=== PATIENT | male | born 1955 | race Two or more races ===

== ENCOUNTER → 2018-09-28 | Outpatient (CLI) | payer MEDICARE ==
[2018-09-28 10:15] LABS: ABSOLUTE EOSINOPHILS # (AUTO) 0.2 10^3/uL (0.0-0.6); ABSOLUTE LYMPHOCYTES (AUTO) 1.6 10^3/uL (0.5-4.7); ABSOLUTE MONOCYTES (AUTO) 0.6 10^3/uL (0.1-1.4); ABSOLUTE NEUT (AUTO) 4.2 10^3/uL (1.7-8.2); BASOPHILS % (AUTO) 0.5 % (0-2); EOSINOPHILS % (AUTO) 3.2 % (0-6); HEMATOCRIT 42.5 % (37.9-51.0); HEMOGLOBIN 14.5 g/dL (13.5-17.0); LYMPHOCYTES % (AUTO) 24.4 % (13-45); MEAN CORPUSCULAR HEMOGLOBIN 31.7 pg (27.0-33.4); MEAN CORPUSCULAR VOLUME 93 fl (80-97); MONOCYTES % (AUTO) 8.5 % (3-13); PLATELET COUNT 338 10^3/uL (150-450); RED BLOOD COUNT 4.56 10^6/uL (4.35-5.55); RED CELL DISTRIBUTION WIDTH 14.8 % (11.5-14.0); SEGMENTED NEUTROPHILS % (AUTO) 63.4 % (42-78); TOTAL CELLS COUNTED % (AUTO) 100 %; WHITE BLOOD COUNT 6.6 10^3/uL (4.0-10.5)
[2018-09-28 10:41] LABS: ALANINE AMINOTRANSFERASE 14 U/L (21-72); ALBUMIN 3.9 g/dL (3.5-5.0); ALKALINE PHOSPHATASE 104 U/L (38-126); ANION GAP 7 (5-19); ASPARTATE AMINO TRANSFERASE 29 U/L (17-59); BILIRUBIN,DIRECT 0.3 mg/dL (0.0-0.4); BILIRUBIN,TOTAL 0.8 mg/dL (0.2-1.3); BLOOD UREA NITROGEN 10 mg/dL (7-20); CALCIUM 9.5 mg/dL (8.4-10.2); CARBON DIOXIDE 31 mmol/L (22-30); CHLORIDE 102 mmol/L (98-107); CHOLESTEROL 215.21 mg/dL (0-200); GLUCOSE 103 mg/dL (75-110); POTASSIUM 4.4 mmol/L (3.6-5.0); SODIUM 140.4 mmol/L (137-145); TOTAL PROTEIN 6.8 g/dL (6.3-8.2); TRIGLYCERIDES 125 mg/dL (<150)
[2018-09-28 10:53] LABS: DIRECT LDL 157 mg/dL (<100)
== END ==
LOC: OD 09:04
PROVIDERS: ATTEND Internal Medicine
DX: R10.9 Unspecified abdominal pain (principal); E03.9 Hypothyroidism, unspecified; E78.5 Hyperlipidemia, unspecified; D64.9 Anemia, unspecified
CPT/HCPCS: 36415; 80053; 80061; 84443; 85025

== ENCOUNTER → 2018-10-08 | Outpatient (CLI) | payer MEDICARE ==
--- NOTE | 2018-10-09 19:18 | XCELERA REPORT ---
[address] [address] Transthoracic Echocardiogram Report Name: BOBBY HAYES Age: 62 yrs Gender: Male : 1955 Patient Status: Outpatient Patient Location: [facility] Study Date: 10/08/2018 09:52 AM Procedure: A complete two-dimensional transthoracic echocardiogram was performed (2D, M-mode, spectral and color flow Doppler). The study was technically difficult with many images being suboptimal in quality. Reason For Study: A FIB Ordering Physician: HELEN BLOOM Performed By: Maryuri Howe Interpretation Summary Left ventricular systolic function is borderline reduced. There is normal left ventricular wall thickness. The left ventricle is grossly normal size. Regional wall motion abnormalities cannot be excluded due to limited visualization. The right ventricle is not well visualized secondary to technical limitations Right ventricular function cannot be assessed due to poor image quality. The left atrium is moderately dilated. The right atrium is mildly dilated. There is a trace amount of mitral regurgitation There is no mitral valve stenosis. No aortic regurgitation is present. There is no aortic valve stenosis There is a trace or physiologic amount of tricuspid regurgitation Tricuspid regurgitation jet envelope not well defined to measure RV systolic pressure accurately. The aortic root is not well visualized. The inferior vena cava appeared normal and decreased > 50% with respiration (RAP 5-10 mmHg) There is no pericardial effusion. MMode/2D Measurements & Calculations RVDd: 2.6 cm LVIDd: 5.4 cm FS: 29.1 % Ao root diam: 3.5 cm IVSd: 0.70 cm LVIDs: 3.8 cm EDV(Teich): 143.1 ml Ao root area: 9.6 cm2 LVPWd: 1.1 cm ESV(Teich): 63.9 ml EF(Teich): 55.3 % Doppler Measurements & Calculations MV E max barbara: MV dec slope: Ao V2 max: LV V1 max P.1 cm/sec 85.1 cm/sec 1.6 mmHg MV A max barbara: 665.5 cm/sec2 Ao max PG: LV V1 max: 53.8 cm/sec MV dec time: 0.12 sec 2.9 mmHg 63.3 cm/sec MV E/A: 1.5 PA V2 max: TR max barbara: 73.1 cm/sec 222.7 cm/sec PA max P.1 mmHg TR max P.8 mmHg Left Ventricle The left ventricle is grossly normal size. There is normal left ventricular wall thickness. Left ventricular systolic function is borderline reduced. LV diastolic function could not be adequately assessed due to atrial fibrilation. Regional wall motion abnormalities cannot be excluded due to limited visualization. Right Ventricle The right ventricle is not well visualized secondary to technical limitations. Right ventricular function cannot be assessed due to poor image quality. Atria The right atrium is mildly dilated. The left atrium is moderately dilated. Interarterial septum not well visualized and not well dopplered. Cannot comment on ASD/PFO presence. Mitral Valve The mitral valve leaflets are sclerotic, but show no functional abnormalities. There is no mitral valve stenosis. There is a trace amount of mitral regurgitation. Aortic Valve The aortic valve is grossly normal. There is no aortic valve stenosis. No aortic regurgitation is present. Tricuspid Valve The tricuspid valve is not well visualized secondary to technical limitations. There is no tricuspid stenosis. There is a trace or physiologic amount of tricuspid regurgitation. Tricuspid regurgitation jet envelope not well defined to measure RV systolic pressure accurately. Pulmonic Valve The pulmonic valve is not well visualized. Great Vessels The aortic root is not well visualized. The inferior vena cava appeared normal and decreased > 50% with respiration (RAP 5-10 mmHg). Effusions There is no pericardial effusion. : HELEN BLOOM > Ishmael Talbot
== END ==
LOC: SP 08:38
PROVIDERS: ATTEND Internal Medicine
DX: I48.1 Persistent atrial fibrillation (principal)
CPT/HCPCS: 93306

== ENCOUNTER → 2018-11-07 | Outpatient (CLI) | payer MEDICARE ==
[2018-11-07 11:08] LABS: CHOLESTEROL 210.03 mg/dL (0-200); TRIGLYCERIDES 123 mg/dL (<150)
[2018-11-07 11:20] LABS: DIRECT LDL 157 mg/dL (<100)
== END ==
LOC: OD 09:58
PROVIDERS: ATTEND Internal Medicine
DX: I10 Essential (primary) hypertension (principal)
CPT/HCPCS: 36415; 80061

== ENCOUNTER 2018-11-18 16:40 | Emergency (ER) | payer MEDICARE ==
[2018-11-18 16:46] VITALS: BP 122/86
[2018-11-18] MEDS ORDERED: MORPHINE SULFATE 10 MG/ML INJ IV ONE (17:40)
[2018-11-18] MEDS ORDERED: ONDANSETRON HCL INJ/PF 4 MG/2 ML SDV IV ONE (17:40)
[2018-11-18] MEDS ORDERED: KETOROLAC TROMETHAMINE INJ/PF 30 MG/1 ML SDV IV ONE (17:40)
--- NOTE | 2018-11-18 17:40 | ER Document Report ---
ED General - General Chief Complaint: Knee Pain Stated Complaint: KNEE PAIN Time Seen by Provider: 11/18/18 17:24 Primary Care Provider: HELEN BLOOM MD [Primary Care Provider] - Follow up as needed Notes: Patient is a 63-year-old male with history of chronic low back pain that presents to the emergency department for chief complaint of bilateral knee pain and back pain. Patient has a history of chronic low back pain, which she is been treated for for almost 30 years, he states that his pain seemed to flareup today, he is out of his medications, he recently moved to the area, and just ran out of his methadone and oxycodone, he has been getting established with a new primary care, and has some prescriptions from them, but has not been set up with his pain management yet. He states that his pain has gotten out of control and his significant rebound. He denies having any new numbness, weakness or tingling in any of his extremities. He describes his pain as a constant aching and throbbing sensation, he feels it across both of his kneecaps, as well as in his lower back. Denies any bowel or bladder incontinence, denies saddle anesthesias or paresthesias. Denies any new injuries or falls. Past Medical History: Chronic back pain, anxiety, atrial fibrillation Past Surgical History: Back surgery, knee surgery Social History: Admits to smoking cigarettes daily, denies alcohol or drug use. Family History: Reviewed and noncontributory for presenting illness Allergies: Reviewed, see documented allergy list. REVIEW OF SYSTEMS: Other than noted above, the 12 point review of systems was reviewed with the patient and were negative, all pertinent findings are included in the HPI. PHYSICAL EXAMINATION: Vital signs reviewed, nursing noted reviewed. GENERAL: Elderly male, appears to be in pain HEAD: Atraumatic, normocephalic. EYES: Eyes appear normal, sclera anicteric, conjunctiva are normal. ENT: Moist mucous membranes. NECK: Normal range of motion, supple without lymphadenopathy LUNGS: Breath sounds clear to auscultation bilaterally and equal. No wheezes rales or rhonchi. HEART: Regular rate and rhythm without murmurs Back: There is some paraspinal tenderness bilaterally in the lower lumbar spine, no thoracic tenderness. EXTREMITIES: Painless range of motion of the bilateral knees, no appreciable knee effusion, patient is neurovascular intact distally in all extremities. NEUROLOGICAL: No focal neurological deficits. Moves all extremities spontaneously Motor and sensory grossly intact on exam. PSYCH: Patient is anxious, but does appear to be in pain as well, but does answer questions appropriately. SKIN: Warm, Dry, normal turgor, no rashes or lesions noted on exposed skin TRAVEL OUTSIDE OF THE [place] IN LAST 30 DAYS: No - Related Data Allergies/Adverse Reactions: No Known Allergies Allergy (Verified 11/18/18 17:28) Past Medical History - Social History Smoking Status: Current Every Day Smoker Chew tobacco use (# tins/day): No Frequency of alcohol use: None Drug Abuse: None Family History: Reviewed & Not Pertinent Patient has suicidal ideation: No Patient has homicidal ideation: No - Past Medical History Cardiac Medical History: Reports: Hx Atrial Fibrillation Renal/ Medical History: Denies: Hx Peritoneal Dialysis Past Surgical History: Reports: Hx Orthopedic Surgery - back, Hx Tonsillectomy Physical Exam - Vital signs Vitals: Temp Pulse Resp BP Pulse Ox 98.6 F 89 18 122/86 H 96 11/18/18 16:44 11/18/18 16:44 11/18/18 16:44 11/18/18 16:44 11/18/18 16:44 Course - Re-evaluation Re-evalutation: Patient seen and examined, vital signs reviewed, patient did seem to be in legitimate pain, he does have a history of chronic pain, he did bring his empty bottles of his pain medications, is currently taking oxycodone 30 mg every 4 hours as needed for pain, prescribed by his physician in [place], the bottle wa s empty, and was filled at the end of August 2018, seems to be appropriate for the prescribed number of pills and the frequency of dosing, patient was also prescribed methadone, 10 mg, which I discussed with the patient, that I do not prescribe methadone, as I am not certified to do so, that he needs to see a ceramic painter to have this continued. Patient understood this. To help with the patient's acute breakthrough of his pain, he was given a one-time dose of IV morphine, as he had an IV from EMS, he was also given a dose of Zofran associated with this and IV Toradol. He was advised that he needs to follow-up with his primary care physician, and at the ER is on an appropriate place to be treated for his acute on chronic pain patient was agreeable, and was discharged home. I did provide him with number 15 tablets of the previously prescribed 30 mg oxycodone, so that the patient could maintain his pain control at home and not go through severe opiate withdrawal. - Vital Signs Vital signs: Temp Pulse Resp BP Pulse Ox 98.6 F 89 18 122/86 H 96 11/18/18 16:44 11/18/18 16:44 11/18/18 16:44 11/18/18 16:44 11/18/18 16:44 Discharge - Discharge Clinical Impression: Chronic pain Qualifiers: Chronic pain type: other chronic pain Qualified Code(s): G89.29 - Other chronic pain Condition: Stable Disposition: HOME, SELF-CARE Additional Instructions: Please take medications as directed, and you must follow-up with your primary care physician, to have continued pain medications as previously prescribed. The emergency department, is not the place for prescriptions for chronic pain. Prescriptions: RX: Oxycodone HCl 30 mg PO Q8H PRN #15 tablet PRN Reason: back and leg pain Referrals: HELEN BLOOM MD [Primary Care Provider] - Follow up as needed
== END 2018-11-18 18:11 | disposition home or self-care (01) ==
LOC: ER 16:40
DX: G89.29 Other chronic pain (principal); M54.5 Low back pain; T40.3X6A Underdosing of methadone, initial encounter; Z91.128 Patient's intentional underdosing of medication regimen for other reason; Z91.14 Patient's other noncompliance with medication regimen; M25.561 Pain in right knee; M25.562 Pain in left knee; F17.210 Nicotine dependence, cigarettes, uncomplicated; Z79.891 Long term (current) use of opiate analgesic
CPT/HCPCS: 99283; 96374; 96375; J1885; J2270; J2405

== ENCOUNTER 2018-11-22 15:03 | Emergency (ER) | payer MEDICARE ==
[2018-11-22 15:12] VITALS: BP 112/76
[2018-11-22] MEDS ORDERED: FENTANYL CITRATE INJ/PF 100 MCG/2 ML AMPUL IM ONE (16:05)
[2018-11-22] MEDS ORDERED: KETOROLAC TROMETHAMINE 60 MG/2 ML SDV IM ONE (16:05)
--- NOTE | 2018-11-22 16:11 | ER Document Report ---
HPI - HPI Time Seen by Provider: 11/22/18 15:43 Pain Level: 3 Notes: Patient is a 63-year-old male with a history of chronic back pain and chronic knee pain who presents the emergency department for pain management. Patient states that he continues to be in a lot of pain and needs something for his pain right now. Patient states that he does not want any prescriptions to go home with. He has an appointment on Monday with pain management. Denies drug allergies. No other concerns or complaints. Pain has been unchanged for a long time. He is eating and drinking without difficulty. He is urinating normally and having normal bowel movements. Denies any headache, fever, neck pain, URI, sore throat, chest pain, palpitations, syncope, cough, shortness of breath, wheeze, dyspnea, abdominal pain, nausea/vomiting/diarrhea, urinary retention, dysuria, hematuria, loss of control of bowel or bladder, numbness/tingling, saddle anesthesia, muscle paralysis, or rash. - ROS Systems Reviewed and Negative: Yes All other systems reviewed and negative - CONSTITUTIONAL Constitutional: DENIES: Fever, Chills Past Medical History - Social History Smoking Status: Current Every Day Smoker Drug Abuse: None Family History: Reviewed & Not Pertinent Patient has suicidal ideation: No Patient has homicidal ideation: No - Past Medical History Cardiac Medical History: Reports: Hx Atrial Fibrillation Renal/ Medical History: Denies: Hx Peritoneal Dialysis Past Surgical History: Reports: Hx Orthopedic Surgery - back, Hx Tonsillectomy Vertical Provider Document - CONSTITUTIONAL Agree With Documented VS: Yes Notes: PHYSICAL EXAMINATION: GENERAL: Well-appearing, well-nourished and in no acute distress. Pt was snoring upon my entry to the room. HEAD: Atraumatic, normocephalic. EYES: Pupils equal round and reactive to light, extraocular movements intact, sclera anicteric, conjunctiva are normal. NECK: Normal range of motion, supple without lymphadenopathy LUNGS: Breath sounds clear to auscultation bilaterally and equal. No wheezes r ales or rhonchi. HEART: Regular rate and rhythm without murmurs, rubs, gallops. ABDOMEN: Soft, nontender, nondistended abdomen. No guarding, no rebound. No masses appreciated. Normal bowel sounds present. No CVA tenderness bilaterally. Musculoskeletal: FROM to passive/active. Strength 5+/5. Back: FROM to passive/active. Strength 5+/5. No vertebral point tenderness, stepoffs, or deformities. No other bony tenderness, erythema, swelling, or ecchymosis. SLR negative b/l. + mild tenderness to the L-paraspinal mm b/l. Mild spasming. No SI jt tenderness. No foot drop Extremities: No cyanosis, clubbing, or edema b/l. Peripheral pulses 2+. Capillary refill less than 3 seconds. NEUROLOGICAL: Cranial nerves grossly intact. Normal speech, normal gait. PSYCH: Normal mood, normal affect. SKIN: Warm, Dry, normal turgor, no rashes or lesions noted. - INFECTION CONTROL TRAVEL OUTSIDE OF THE [place] IN LAST 30 DAYS: No Course - Re-evaluation Re-evalutation: 11/22/18 16:08 Patient is an afebrile, well-hydrated, 63-year-old male who presents to the ED with chronic low back pain. Vitals are acceptable. PE is otherwise unremarkable for any focal neurological deficits. He has no significant tachycardia, tachypnea, or hypoxia. He is nontoxic-appearing and is tolerating p.o. without difficulties. There are no signs of infection. No other red flag symptoms noted. No other labs or imaging warranted at this time based on H&P. Low suspicion for any meningitis, fracture, expanding/ruptured AAA, cauda equina syndrome, epidural mass lesion/abscess, herniated disc causing severe spinal stenosis, or other systemic infection at this time. Patient is aware that his condition can change from initial presentation and that he needs monitor symptoms closely for any acute changes. Thoroughly reviewed with patient that the emergency department is not a place her chronic pain management. I did offer him a variety of medicines including gabapentin which she has declined. Patient has agreed that he will not be getting any refills for home of his chronic medicine as he has an appointment on Monday with pain management. I did review with patient that we will give him this one-time injection, but he needs to have follow-up as scheduled with pain management. Patient has agreed to an injection of fentanyl at 50 mcg and Toradol. 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 No evidence of withdrawal. Conservative measures otherwise for symptoms. Recheck with your PCM in 3-5 days. Consider consult with orthopedic/physical therapy. Return to the ED with any worsening/concerning symptoms otherwise as reviewed discharge. Patient is in agreement. - Vital Signs Vital signs: Temp Pulse Resp BP Pulse Ox 98.3 F 56 L 16 112/76 96 11/22/18 15:11 11/22/18 15:11 11/22/18 15:11 11/22/18 15:11 11/22/18 15:11 Discharge - Discharge Clinical Impression: Chronic pain Qualifiers: Chronic pain type: other chronic pain Qualified Code(s): G89.29 - Other chronic pain Condition: Stable Disposition: HOME, SELF-CARE Instructions: Chronic Pain Control ([facility]) Additional Instructions: Rest, Ice Tylenol/ibuprofen as needed Light stretches daily Strength exercises as able Moist heat and massage may help F/u with your PCP in 3-5 days for a recheck Keep appointment with pain management on Monday Return to the ED with any worsening symptoms and/or development of fever, headache, chest pain, palpitations, syncope, shortness of breath, trouble breathing, abdominal pain, n/v/d, blood in stool/urine, loss of control of bowel/bladder, urinary retention, muscle weakness/paralysis, saddle anesthesia, numbness/tingling, or other worsening symptoms that are concerning to you. Referrals: HELEN BLOOM MD [Primary Care Provider] - Follow up as needed [facility] [Provider Group] - Follow up as needed
== END 2018-11-22 16:32 | disposition home or self-care (01) ==
LOC: ER 15:03
DX: G89.29 Other chronic pain (principal); M54.5 Low back pain; M25.569 Pain in unspecified knee; I48.91 Unspecified atrial fibrillation
CPT/HCPCS: 99283; 96372; J1885; J3010

== ENCOUNTER 2018-11-23 12:06 | Emergency (ER) | payer MEDICARE ==
--- NOTE | 2018-11-23 12:44 | ER Document Report ---
ED Medical Screen (RME) - General Chief Complaint: Knee Pain Stated Complaint: KNEE PAIN Time Seen by Provider: 11/23/18 12:35 Primary Care Provider: HLEEN BLOOM MD [Primary Care Provider] - Follow up as needed Notes: Patient is complaining of chronic pain in his left knee since 1998. 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 He is never had surgery on the left knee. Patient has been here for 2 prior times in the past 5 days, most recently just last night. Says he was given a couple of shots of medication and sent home. Patient is from [place] and says he does not have a pain medication prescriber here locally. He is supposed to be taking methadone and oxycodone. I told the patient this is not the sort of problems we take care of in the emergency department. TRAVEL OUTSIDE OF THE [place] IN LAST 30 DAYS: No - Related Data Allergies/Adverse Reactions: No Known Allergies Allergy (Verified 11/22/18 15:06) Past Medical History - Past Medical History Cardiac Medical History: Reports: Hx Atrial Fibrillation Renal/ Medical History: Denies: Hx Peritoneal Dialysis Past Surgical History: Reports: Hx Orthopedic Surgery - back, Hx Tonsillectomy Physical Exam - Vital signs Vitals: Temp Pulse Resp BP Pulse Ox 98.3 F 79 16 140/97 H 99 11/23/18 12:23 11/23/18 12:23 11/23/18 12:23 11/23/18 12:23 11/23/18 12:23 Course - Vital Signs Vital signs: Temp Pulse Resp BP Pulse Ox 98.3 F 79 16 140/97 H 99 11/23/18 12:23 11/23/18 12:23 11/23/18 12:23 11/23/18 12:23 11/23/18 12:23 Doctor's Discharge - Discharge Referrals: HELEN BLOOM MD [Primary Care Provider] - Follow up as needed
--- NOTE | 2018-11-23 13:34 | ER Document Report ---
ED Medical Screen (RME) - General Chief Complaint: Knee Pain Stated Complaint: KNEE PAIN Time Seen by Provider: 11/23/18 12:35 Primary Care Provider: HELEN BLOOM MD [Primary Care Provider] - Follow up as needed Notes: Patient is a 63-year-old male with complaints of left knee pain and low back pain. He has had a history of this since 1998. Past medical history of atrial fibrillation. See Dr. Araujo's note for details. TRAVEL OUTSIDE OF THE [place] IN LAST 30 DAYS: No - Related Data Allergies/Adverse Reactions: No Known Allergies Allergy (Verified 11/22/18 15:06) Past Medical History - Past Medical History Cardiac Medical History: Reports: Hx Atrial Fibrillation Renal/ Medical History: Denies: Hx Peritoneal Dialysis Past Surgical History: Reports: Hx Orthopedic Surgery - back, Hx Tonsillectomy Physical Exam - Vital signs Vitals: Temp Pulse Resp BP Pulse Ox 98.3 F 79 16 140/97 H 99 11/23/18 12:23 11/23/18 12:23 11/23/18 12:23 11/23/18 12:23 11/23/18 12:23 Course - Re-evaluation Re-evalutation: 11/23/18 13:32 I assessed the patient and he seems rather off, as if he may be on other drugs or intoxicated. I discussed this with Dr. Araujo and we agreed that he would not get any extra pain medicine here in the emergency department, but I would like to have him evaluated just in case he may be intoxicated. When I asked him to sit up he seemed like he was going to fall off the stretcher. He did not have very good eye contact. - Vital Signs Vital signs: Temp Pulse Resp BP Pulse Ox 98.3 F 79 16 140/97 H 99 11/23/18 12:23 11/23/18 12:23 11/23/18 12:23 11/23/18 12:23 11/23/18 12:23 Doctor's Discharge - Discharge Referrals: HELEN BLOOM MD [Primary Care Provider] - Follow up as needed
[2018-11-23] MEDS ORDERED: MORPHINE SULFATE 10 MG/ML INJ SUBCUT ONE (15:23)
--- NOTE | 2018-11-23 15:30 | ER Document Report ---
ED General - General Chief Complaint: Knee Pain Stated Complaint: KNEE PAIN Time Seen by Provider: 11/23/18 12:35 Primary Care Provider: HELEN BLOOM MD [Primary Care Provider] - Follow up as needed Mode of Arrival: Ambulatory Information source: Patient TRAVEL OUTSIDE OF THE U.S. IN LAST 30 DAYS: No - HPI Patient complains to provider of: Bilateral "knee cap Pain" Onset: Other - Chronic Onset/Duration: Persistent Quality of pain: Sharp, Stabbing Severity: Severe Pain Level: 5 Context: No stated injury; history of DVT diagnosis left lower extremity Associated symptoms: denies: Chest pain, Shortness of breath Exacerbated by: Movement Similar symptoms previously: No Recently seen / treated by doctor: No Notes: Patient is a 63-year-old male who comes in with chief complaint of pain in his knee. He States His Pain Is Chronic in Nature. It Occurred Sometime Ago in an Accident. States He Just Moved Here from [place] and Has History of Taking Methadone and Oxycodone for Chronic Pain Management. 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 He Has Had Multiple Visits Here for Similar. Upon Further Interview, Patient Reports He Has a History of Atrial Fibrillation Which She Does Not Take Any Medication to Control the Rate. Does Not Take Any Anticoagulants. Also Reports That He Wa s Diagnosed 2-3 Weeks Ago with a Left Lower Extremity DVT. Again Not Taking Any Medication to Dissolve This. He Does Not Have Any Chest Pain or Shortness of Breath. No Dizziness or Lightheadedness. Patient Admits to Having 1 Alcoholic Beverage in the past 24 Hours. - Related Data Allergies/Adverse Reactions: No Known Allergies Allergy (Verified 11/22/18 15:06) Past Medical History - General Information source: Patient - Social History Smoking Status: Unknown if Ever Smoked Family History: Reviewed & Not Pertinent Patient has suicidal ideation: No Patient has homicidal ideation: No - Past Medical History Cardiac Medical History: Reports: Hx Atrial Fibrillation Renal/ Medical History: Denies: Hx Peritoneal Dialysis Past Surgical History: Reports: Hx Orthopedic Surgery - back, Hx Tonsillectomy Review of Systems - Review of Systems Notes: Constitutional: No fevers. No chills. EENT: No eye redness. No eye pain. No ear pain. No sore throat. Cardiovascular: No chest pain. No palpitations. Respiratory: No cough. No shortness of breath. No respiratory distress. Gastrointestinal: No abdominal pain. No nausea, vomiting, or diarrhea. Genitourinary: Atraumatic. No lesions. No pain. No discharge. Musculoskeletal: Positive for bilateral patellar pain, positive for left lower extremity/calf pain Skin: No rash or lesions. Lymphatic: No swollen lymph nodes. Neurologic: No headache. No syncope. Psychiatric: No suicidal or homicidal ideation. Physical Exam - Vital signs Vitals: Temp Pulse Resp BP Pulse Ox 98.3 F 79 16 140/97 H 99 11/23/18 12:23 11/23/18 12:23 11/23/18 12:23 11/23/18 12:23 11/23/18 12:23 - Notes Notes: General: Well-developed, well-nourished. In no acute distress. Non-toxic appearing. Cardiac: Well-perfused. Regular rate. Irregular rhythm Pulmonary: No respiratory distress. No cyanosis. Bilateral lung fiels are clear to auscultation. Abdominal: Non-distended. Non-rigid. Bowels sounds are present in all four quadrants. No guarding or rebound. HEENT: Head is atraumatic. Conjunctivae not reddened. No tearing. PERRL. EOMI. Orbits atraumatic. No periorbital swelling or erythema. Oropharynx is without erythema, swelling, or exudates. Neck: Supple. No adenopathy. No meningismus. Dermatologic: Warm with good turgor. No rash. Atraumatic. Chest: Atraumatic. No chest wall tenderness to palpation. Musculoskeletal: Moves all extremities well. No range of motion deficits. no muscular or joint tenderness. No paraspinal muscle tenderness. no midline spinal tenderness or step-off. Genitourinary: Examination deferred Neurologic: No gross neurologic deficits. Psychiatric: Normal mood. Course - Re-evaluation Re-evalutation: 11/23/18 15:31 Unfortunately, patient has history of atrial fibrillation which is untreated. He also reports a history of a DVT in his left lower extremity which is also untreated. Not look like he has had much of a workup in the previous visits here. Will go ahead and check a Doppler ultrasound to see what the status of his legs is in terms of DVT. Get some basic lab work and see what his EKG looks like at this time. 11/23/18 17:03 Patient does not have a DVT in either leg per findings of the Doppler ultrasound. At the time his EKG was done he was in a heart rate of 137 A. fib. Patient reports he does not want to be treated for this. States he has had it for many years. States it will be back into a normal rate without any further intervention. He understands that atrial fibrillation is a precursor to DVT, pulmonary embolism, and ischemic stroke. He understands the risks of not managing it more seriously. He feels better after getting his pain medicine and wants to go home. We will have him sign out AGAINST MEDICAL ADVICE. He is not intoxicated. He is awake alert and oriented. Treynor Coma Scale 15 out of 15. Able to make important decisions for himself. - Vital Signs Vital signs: Temp Pulse Resp BP Pulse Ox 98.3 F 79 16 140/97 H 99 11/23/18 12:23 11/23/18 12:23 11/23/18 12:23 11/23/18 12:23 11/23/18 12:23 - Laboratory Result Diagrams: 11/23/18 16:25 11/23/18 16:25 Laboratory results interpreted by me: 11/23/18 11/23/18 16:25 16:25 WBC 11.3 H RDW 14.5 H Seg Neutrophils % 85.2 H Lymphocytes % 11.5 L Monocytes % 2.5 L Absolute Neutrophils 9.6 H Sodium 146.0 H - EKG Interpretation by Me Rate: Tachycardia Rhythm: A.Fib Discharge - Discharge Clinical Impression: Left against medical advice Atrial fibrillation Qualifiers: Atrial fibrillation type: chronic Qualified Code(s): I48.2 - Chronic atrial fibrillation Patellar pain Qualifiers: Laterality: unspecified laterality Qualified Code(s): M25.569 - Pain in unspecified knee Condition: Good Disposition: AGAINST MEDICAL ADVICE Instructions: Ice & Elevation ([facility]), Neuropathy ([facility]) Prescriptions: Methylprednisolone [Medrol Dosepack (4 mg/Tab) 21 Tab/Dosepak] 21 tab PO DAILY #1 dspk Referrals: HELEN BLOOM MD [Primary Care Provider] - Follow up tomorrow
[2018-11-23 16:36] LABS: ABSOLUTE BASOPHILS # (AUTO) 0.1 10^3/uL (0.0-0.2); ABSOLUTE LYMPHOCYTES (AUTO) 1.3 10^3/uL (0.5-4.7); ABSOLUTE MONOCYTES (AUTO) 0.3 10^3/uL (0.1-1.4); ABSOLUTE NEUT (AUTO) 9.6 10^3/uL (1.7-8.2); BASOPHILS % (AUTO) 0.6 % (0-2); EOSINOPHILS % (AUTO) 0.2 % (0-6); HEMATOCRIT 47.8 % (37.9-51.0); HEMOGLOBIN 16.2 g/dL (13.5-17.0); LYMPHOCYTES % (AUTO) 11.5 % (13-45); MEAN CORPUSCULAR HEMOGLOBIN 31.7 pg (27.0-33.4); MEAN CORPUSCULAR HGB CONC 33.8 g/dL (32.0-36.0); MEAN CORPUSCULAR VOLUME 94 fl (80-97); MONOCYTES % (AUTO) 2.5 % (3-13); PLATELET COUNT 312 10^3/uL (150-450); RED BLOOD COUNT 5.09 10^6/uL (4.35-5.55); RED CELL DISTRIBUTION WIDTH 14.5 % (11.5-14.0); SEGMENTED NEUTROPHILS % (AUTO) 85.2 % (42-78); TOTAL CELLS COUNTED % (AUTO) 100 %; WHITE BLOOD COUNT 11.3 10^3/uL (4.0-10.5)
--- NOTE | 2018-11-23 16:39 | XCELERA REPORT ---
[address] [facility] [address] Lower Extremity Venous Evaluation Procedure: Color flow and duplex imaging bilaterally of the veins of the lower extremities as well as the Common Femoral veins. Right Sided Venous Evaluation Normal vessel filling wall to wall, compression and augmentation as well as Colour flow down to the infrageniculate veins. Left Sided Venous Evaluation Normal vessel filling wall to wall, compression and augmentation as well as Colour flow down to the infrageniculate veins. Interpretation Summary No duplex evidence of DVT or obstruction in the bilateral lower extremities. Name: BOBBY HAYES Age: 63 yrs Gender: Male : 1955 Patient Status: Emergency Patient Location: ER Study Date: 11/23/2018 03:54 PM Reason For Study: bilateral knee pain Ordering Physician: KARLI JUNG Performed By: Cornelio Mathews : KARLI JUNG > Josiah Redman
[2018-11-23 16:46] LABS: ALANINE AMINOTRANSFERASE 23 U/L (21-72); ALBUMIN 4.8 g/dL (3.5-5.0); ALKALINE PHOSPHATASE 125 U/L (38-126); ANION GAP 17 (5-19); ASPARTATE AMINO TRANSFERASE 45 U/L (17-59); BILIRUBIN,DIRECT 0.4 mg/dL (0.0-0.4); BILIRUBIN,TOTAL 0.9 mg/dL (0.2-1.3); BLOOD UREA NITROGEN 10 mg/dL (7-20); CALCIUM 10.2 mg/dL (8.4-10.2); CARBON DIOXIDE 23 mmol/L (22-30); CHLORIDE 106 mmol/L (98-107); GLUCOSE 108 mg/dL (75-110); POTASSIUM 4.6 mmol/L (3.6-5.0); TOTAL PROTEIN 7.8 g/dL (6.3-8.2)
[2018-11-23 17:46] VITALS: BP 142/99
--- NOTE | 2018-11-23 22:05 | EKG REPORT ---
SEVERITY:- ABNORMAL ECG - ATRIAL FIBRILLATION, V-RATE 82-172 VENTRICULAR PREMATURE COMPLEX BORDERLINE T WAVE ABNORMALITIES BORDERLINE PROLONGED QT INTERVAL : Confirmed by: Ishmael Talbot 23-Nov-2018 22:04:56
== END 2018-11-23 17:46 | disposition left against medical advice (07) ==
LOC: ER 12:06
DX: Z53.21 Procedure and treatment not carried out due to patient leaving prior to being seen by health care provider (principal); I48.2 Chronic atrial fibrillation; M25.561 Pain in right knee; M25.562 Pain in left knee; Z79.899 Other long term (current) drug therapy
CPT/HCPCS: 93005; 99284; 96372; 36415; 85025; 80053; 93970 ×2; 93010; J2270

== ENCOUNTER → 2018-11-28 | Outpatient (CLI) | payer MEDICARE ==
--- NOTE | 2018-11-28 09:29 | RADIOLOGY REPORT (SQ) ---
EXAM DESCRIPTION: KNEE RIGHT 3 VIEWS COMPLETED DATE/TIME: 11/28/2018 8:53 am REASON FOR STUDY: . 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 NUMBER OF VIEWS: Three views. TECHNIQUE: AP, lateral, and intercondylar radiographic images acquired of the right knee. LIMITATIONS: Motion artifact limits the examination. FINDINGS: MINERALIZATION: Normal. BONES: No acute fracture or dislocation. No worrisome bone lesions. JOINT: Mild narrowing suggested at the mediolateral compartments of the knee. No effusion. SOFT TISSUES: No soft tissue swelling. No radio-opaque foreign body. OTHER: No other significant finding. IMPRESSION: 1. No acute osseous findings. 2. Mild narrowing suggested at the mediolateral compartments of the knee. TECHNICAL DOCUMENTATION: JOB ID: [id number] [employer]- All Rights Reserved Reading location - IP/workstation name: [email or web address]
--- NOTE | 2018-11-28 09:29 | RADIOLOGY REPORT (SQ) ---
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 569 PAIN IN UNSPECIFIED KNEE COMPARISON: None. NUMBER OF VIEWS: Three views. TECHNIQUE: AP, lateral, and intercondylar radiographic images acquired of the left knee. LIMITATIONS: Motion artifact limits examination. FINDINGS: MINERALIZATION: Normal. BONES: No acute fracture or dislocation. Small enthesiophyte at the quadriceps tendon insertion. JOINT: Mild narrowing suggested at the mediolateral compartments of the knee. No effusion.. SOFT TISSUES: No soft tissue swelling. No radio-opaque foreign body. OTHER: No other significant finding. IMPRESSION: 1. No acute osseous findings. 2. Mild narrowing suggest at the medial and lateral compartments of the knee. TECHNICAL DOCUMENTATION: JOB ID: [id number] [employer]- All Rights Reserved Reading location - IP/workstation name: [email or web address]
--- NOTE | 2018-11-28 19:16 | EKG REPORT ---
SEVERITY:- ABNORMAL ECG - ATRIAL FIBRILLATION, V-RATE 113-205 BORDERLINE T ABNORMALITIES, INFERIOR LEADS : Confirmed by: Jacquie Jennings MD 28-Nov-2018 19:16:05
== END ==
LOC: OD 08:26
PROVIDERS: ATTEND Physician Assistant
DX: M25.562 Pain in left knee (principal); M25.561 Pain in right knee; Z79.891 Long term (current) use of opiate analgesic
CPT/HCPCS: 93005; 93010

== ENCOUNTER 2018-12-14 15:30 | Emergency (ER) | payer MEDICARE ==
--- NOTE | 2018-12-14 16:31 | ER Document Report ---
ED Medical Screen (RME) - General Chief Complaint: Knee Pain Stated Complaint: KNEE PAIN Time Seen by Provider: 12/14/18 16:22 Primary Care Provider: ROSY WELLS PA [Primary Care Provider] - Follow up as needed Notes: 63-year-old male patient comes emergency room by EMS complaining of pain all over, specifically his kneecaps, behind the kneecap, ankles feet, shoulders, trouble sleeping, both in his back. He reportedly got cortisone shots in his knees possibly yesterday. He is taking oxycodone. He is in chronic pain management. He moved down here from [place] about 1-2 months ago and came to the emergency room here on 11/13/2018 when he ran out of his methadone and oxycodone. At that time he was taking oxycodone 30 mg tablets 4 times a day. He was given a prescription for oxycodone 30 mg number 15 tablets. He has been here 2 more times since then trying to get narcotics. He has been seen at [facility], but they started him on 10 mg oxycodone and Mobic, while he prefers his 30 mg oxycodone and methadone. He specifically says not to bring him any OxyContin pills. I have greeted and performed a rapid initial assessment of this patient. A comprehensive ED assessment and evaluation of the patient, analysis of test results and completion of the medical decision making process will be conducted by additional ED providers. TRAVEL OUTSIDE OF THE U.S. IN LAST 30 DAYS: No - Related Data Allergies/Adverse Reactions: No Known Allergies Allergy (Verified 11/22/18 15:06) Past Medical History - Social History Chew tobacco use (# tins/day): No Frequency of alcohol use: Occasional Drug Abuse: None - Past Medical History Cardiac Medical History: Reports: Hx Atrial Fibrillation Renal/ Medical History: Denies: Hx Peritoneal Dialysis Past Surgical History: Reports: Hx Orthopedic Surgery - back, Hx Tonsillectomy Physical Exam - Vital signs Vitals: Temp Pulse Resp BP Pulse Ox 97.9 F 87 16 124/75 95 12/14/18 15:42 12/14/18 15:42 12/14/18 15:42 12/14/18 15:42 12/14/18 15:42 Course - Vital Signs Vital signs: Temp Pulse Resp BP Pulse Ox 97.9 F 87 16 124/75 95 12/14/18 15:42 12/14/18 15:42 12/14/18 15:42 12/14/18 15:42 12/14/18 15:42 Doctor's Discharge - Discharge Referrals: ROSY WELLS PA [Primary Care Provider] - Follow up as needed
--- NOTE | 2018-12-14 19:32 | ER Document Report ---
ED General - General Chief Complaint: Knee Pain Stated Complaint: KNEE PAIN Time Seen by Provider: 12/14/18 16:22 Primary Care Provider: ROSY WELLS PA [Primary Care Provider] - Follow up as needed Notes: 63-year-old male patient comes emergency room by EMS complaining of pain all over, specifically his kneecaps, behind the kneecap, ankles feet, shoulders, trouble sleeping, both in his back. Pain is described as throbbing, aching, constant. Worsened by movement. States the only thing that will make it better is methadone. He is taking oxycodone. He is in chronic pain management through [facility]. He moved down here from [place] about 1-2 months ago and came to the emergency room here on 11/13/2018 when he ran out of his methadone and oxycodone. At that time he was taking oxycodone 30 mg tablets 4 times a day. He was given a prescription for oxycodone 30 mg number 15 tablets. He has been here 2 more times since then trying to get narcotics. He has been seen at [facility], but they started him on 10 mg oxycodone and Mobic, while he prefers his 30 mg oxycodone and methadone. TRAVEL OUTSIDE OF THE [place].S. IN LAST 30 DAYS: No - Related Data Allergies/Adverse Reactions: No Known Allergies Allergy (Verified 11/22/18 15:06) Past Medical History - General Information source: Patient - Social History Smoking Status: Current Every Day Smoker Chew tobacco use (# tins/day): No Frequency of alcohol use: Occasional Drug Abuse: None Lives with: Family Family History: Reviewed & Not Pertinent Patient has suicidal ideation: No Patient has homicidal ideation: No - Past Medical History Cardiac Medical History: Reports: Hx Atrial Fibrillation Renal/ Medical History: Denies: Hx Peritoneal Dialysis Past Surgical History: Reports: Hx Orthopedic Surgery - back, Hx Tonsillectomy Review of Systems - Review of Systems Notes: Constitutional: Negative for fever. HENT: Negative for sore throat. Eyes: Negative for visual changes. Cardiovascular: Negative for chest pain. Respiratory: Negative for shortness of breath. Gastrointestinal: Negative for abdominal pain, vomiting or diarrhea. Genitourinary: Negative for dysuria. Musculoskeletal: Positive for chronic musculoskeletal pain, chronic knee pain, chronic low back pain Skin: Negative for rash. Neurological: Negative for headaches, weakness or numbness. 10 point ROS negative except as marked above and in HPI. Physical Exam - Vital signs Vitals: Temp Pulse Resp BP Pulse Ox 97.9 F 87 16 124/75 95 12/14/18 15:42 12/14/18 15:42 12/14/18 15:42 12/14/18 15:42 12/14/18 15:42 Interpretation: Normal Notes: PHYSICAL EXAMINATION: GENERAL: Well-appearing, well-nourished and in no acute distress. HEAD: Atraumatic, normocephalic. EYES: Pupils equal round and reactive to light, extraocular movements intact, sclera anicteric, conjunctiva are normal. ENT: nares patent, oropharynx clear without exudates. Moist mucous membranes. NECK: Normal range of motion, supple without lymphadenopathy LUNGS: Breath sounds clear to auscultation bilaterally and equal. No wheezes rales or rhonchi. HEART: Regular rate and rhythm without murmurs ABDOMEN: Soft, nontender, normoactive bowel sounds. No guarding, no rebound. No masses appreciated. EXTREMITIES: Normal range of motion, no pitting or edema. No cyanosis. NEUROLOGICAL: No focal neurological deficits. Moves all extremities spontaneously and on command. PSYCH: Normal mood, normal affect. SKIN: Warm, Dry, normal turgor, no rashes or lesions noted. Course - Re-evaluation Re-evalutation: 12/14/18 19:41 Patient presents for the fourth time in less than one month for chronic pain. He is requesting methadone and oxycodone. He is in chronic pain management with [facility] who prescribed oxycodone 10 mg tablets. The patient was prescribed a 30-day supply of both oxycodone and morphine on the fourth of this month and both bottles are completely empty. Patient states that this is because he took what he is "supposed to be prescribed". I informed him that this is a violation of his pain contract as is coming to the emergency department requesting additional prescriptions for other narcotics. Because this is a violation of the patient's pain contract I did contact the on-call physician for [facility] Dr. Nielson and informed her of this violation as well as the patient being here requesting additional pain medications. She states she is very pleased that I called her, will have someone from the clinic contact him on Monday and notify him of his discontinuation of services through their clinic. Patient is otherwise nontoxic in appearance, does actually appear to be somewhat intoxicated here in the emergency department. Medical screening exam otherwise unremarkable. No indication for labs. Contrary to triage assessment the patient denies any explicit suicidality, denies any intent or means to harm himself. - Vital Signs Vital signs: Temp Pulse Resp BP Pulse Ox 98.1 F 61 16 149/103 H 97 12/14/18 20:01 12/14/18 20:01 12/14/18 20:01 12/14/18 20:01 12/14/18 20:01 Discharge - Discharge Clinical Impression: Opiate misuse Chronic pain Qualifiers: Chronic pain type: other chronic pain Qualified Code(s): G89.29 - Other chronic pain Bilateral knee pain Qualifiers: Chronicity: acute Qualified Code(s): M25.561 - Pain in right knee Condition: Good Disposition: HOME, SELF-CARE Additional Instructions: We do not treat chronic pain in the emergency department. You need to follow with your pain management physician if you are not satisfied with your current pain control. Return for any additional concerns you may have. Referrals: ROSY WELLS PA [Primary Care Provider] - Follow up as needed
[2018-12-14] MEDS ORDERED: KETOROLAC TROMETHAMINE 60 MG/2 ML SDV IM ONE (19:39)
[2018-12-14 20:02] VITALS: BP 149/103
== END 2018-12-14 20:02 | disposition home or self-care (01) ==
LOC: ER 15:30
DX: G89.29 Other chronic pain (principal); M25.561 Pain in right knee; M54.5 Low back pain; F11.90 Opioid use, unspecified, uncomplicated; Z79.1 Long term (current) use of non-steroidal anti-inflammatories (NSAID); M25.579 Pain in unspecified ankle and joints of unspecified foot; M79.673 Pain in unspecified foot; M25.519 Pain in unspecified shoulder; F17.200 Nicotine dependence, unspecified, uncomplicated
CPT/HCPCS: 99283

== ENCOUNTER 2018-12-20 13:30 | Inpatient (IN) | payer MEDICARE ==
[2018-12-20] MEDS ORDERED: ASPIRIN 81 MG TABLET, CHEWABLE PO ONE (13:33)
[2018-12-20] MEDS ORDERED: DILTIAZEM HCL/D5W 125 MG/125 ML RTUINJ IV ONE (14:15)
[2018-12-20 14:36] LABS: ALANINE AMINOTRANSFERASE 47 U/L (21-72); ALKALINE PHOSPHATASE 81 U/L (38-126); ANION GAP 18 (5-19); ASPARTATE AMINO TRANSFERASE 32 U/L (17-59); BILIRUBIN,DIRECT 0.4 mg/dL (0.0-0.4); BILIRUBIN,TOTAL 1.4 mg/dL (0.2-1.3); BLOOD UREA NITROGEN 23 mg/dL (7-20); CALCIUM 9.7 mg/dL (8.4-10.2); CARBON DIOXIDE 19 mmol/L (22-30); CHLORIDE 100 mmol/L (98-107); GLUCOSE 146 mg/dL (75-110); SODIUM 136.9 mmol/L (137-145); TOTAL PROTEIN 6.4 g/dL (6.3-8.2)
[2018-12-20] MEDS ORDERED: MORPHINE SULFATE 10 MG/ML INJ IV ONE (14:43)
[2018-12-20] MEDS ORDERED: DILTIAZEM HCL INJ 25 MG/5 ML VIAL IV ONE ×2 (14:43→14:48)
[2018-12-20] MEDS ORDERED: ONDANSETRON HCL INJ/PF 4 MG/2 ML SDV IV ONE (14:43)
--- NOTE | 2018-12-20 14:47 | EKG REPORT ---
SEVERITY:- ABNORMAL ECG - ATRIAL FIBRILLATION, V-RATE 85-135 VENTRICULAR PREMATURE COMPLEX NONSPECIFIC T ABNORMALITIES, DIFFUSE LEADS : Confirmed by: Jacquie Jennings MD 20-Dec-2018 14:47:01
[2018-12-20 14:49] LABS: CREATINE KINASE MB < 0.22 ng/mL (<4.55); TROPONIN I < 0.012 ng/mL
--- NOTE | 2018-12-20 14:49 | RADIOLOGY REPORT (SQ) ---
EXAM DESCRIPTION: CHEST SINGLE VIEW COMPLETED DATE/TIME: 12/20/2018 2:43 pm REASON FOR STUDY: bed 4 cp COMPARISON: None. EXAM PARAMETERS: NUMBER OF VIEWS: One view. TECHNIQUE: Single frontal radiographic view of the chest acquired. RADIATION DOSE: NA LIMITATIONS: None. FINDINGS: LUNGS AND PLEURA: No opacities, masses or pneumothorax. No pleural effusion. MEDIASTINUM AND HILAR STRUCTURES: No masses. Contour normal. HEART AND VASCULAR STRUCTURES: Heart normal in size. Normal vasculature. BONES: No acute findings. HARDWARE: None in the chest. OTHER: No other significant finding. IMPRESSION: No acute abnormality of the lungs in AP projection. TECHNICAL DOCUMENTATION: JOB ID: [id number] [employer]- All Rights Reserved Reading location - IP/workstation name: [email or web address]
[2018-12-20 14:53] LABS: CREATINE KINASE < 20 U/L (55-170)
[2018-12-20 14:54] LABS: POTASSIUM 2.9 mmol/L (3.6-5.0)
[2018-12-20] MEDS ORDERED: DILTIAZEM HCL/D5W 125 MG/125 ML RTUINJ IV PRN (15:19)
[2018-12-20] MEDS ORDERED: POTASSIUM CHLORIDE 20 MEQ/15 ML UDCUP PO ONE (15:24)
--- NOTE | 2018-12-20 15:25 | ER Document Report ---
ED General - General Chief Complaint: Irregular Pulse Stated Complaint: CHEST PAIN Time Seen by Provider: 12/20/18 14:20 TRAVEL OUTSIDE OF THE U.S. IN LAST 30 DAYS: No - HPI Notes: Patient presents to the emergency department for evaluation. He has an extremely poor historian. He will only really talk about his chronic knee pain and his need for pain medication. He does state he may have a distant history of atrial fibrillation. I asked him if he ever took any medications for that. He stated "it did not hurt so I did not take any pills." He denies any chest pain or difficulty breathing. He is unable to tell me how long he has had atrial fibrillation. He states he was referred here by a physician, but is unsure of who sent him. - Related Data Allergies/Adverse Reactions: No Known Allergies Allergy (Verified 11/22/18 15:06) Past Medical History - General Information source: Patient - Social History Smoking Status: Current Every Day Smoker Frequency of alcohol use: Heavy Drug Abuse: None Family History: CVA - Past Medical History Cardiac Medical History: Reports: Hx Atrial Fibrillation Renal/ Medical History: Denies: Hx Peritoneal Dialysis Past Surgical History: Reports: Hx Orthopedic Surgery - back, Hx Tonsillectomy Review of Systems - Review of Systems Constitutional: No symptoms reported EENT: No symptoms reported Cardiovascular: No symptoms reported Respiratory: No symptoms reported Gastrointestinal: No symptoms reported Genitourinary: No symptoms reported Musculoskeletal: See HPI Skin: No symptoms reported Neurological/Psychological: No symptoms reported Physical Exam - Vital signs Vitals: Pulse Ox 100 12/20/18 13:33 Notes: Heart rate 135, respiratory rate 24, SPO2 96% on room air, blood pressure 113/68. Afebrile. - Notes Notes: Vital signs reviewed, please refer to chart. Patient is normocephalic, atraumatic. Pupils equal round, reactive to light. Neck is supple without meningismus. Heart is irregularly irregular with normal S1-S2. Lungs are clear to auscultation bilaterally. Abdomen is soft, nontender, normoactive bowel sounds throughout. Extremities without cyanosis, clubbing, edema. No gross deformities to the knees. Peripheral pulses are equal. Skin is warm and dry. Patient is awake, alert, neurological exam is nonfocal. Course - Re-evaluation Re-evalutation: 12/20/18 15:23 Patient presents to the emergency department for evaluation. He is found to be in rapid atrial fibrillation. EMS had already instituted a Cardizem drip. He was re-given another bolus of 15 mg IV, maintained on 10 mg/h. His heart rate has been between 98 and 115 since onset of this. Laboratory investigations are pending. Patient was given morphine for his knee pain. We will continue to monitor. His potassium was found to be low. Magnesium was ordered, oral potassium given. 12/20/18 15:25 12/20/18 17:29 Patient's magnesium was normal. He was given his potassium. 12/20/18 22:[address] Kearney at 1700. He came down to evaluate the patient, admitted him for further care. - Vital Signs Vital signs: Temp Pulse Resp BP Pulse Ox 98.0 F 90 18 107/79 100 12/20/18 22:28 12/20/18 22:28 12/20/18 22:28 12/20/18 22:28 12/20/18 22:28 - Laboratory Result Diagrams: 12/20/18 14:57 12/20/18 14:00 Laboratory results interpreted by me: 12/20/18 12/20/18 12/20/18 14:00 14:00 14:57 WBC 18.7 H Seg Neutrophils % 79.2 H Absolute Neutrophils 14.8 H Sodium 136.9 L Potassium 2.9 L* Carbon Dioxide 19 L BUN 23 H Glucose 146 H Magnesium 2.4 H Total Bilirubin 1.4 H Creatine Kinase < 20 L Discharge - Discharge Clinical Impression: Rapid atrial fibrillation, Hypokalemia Chronic pain Qualifiers: Chronic pain type: other chronic pain Qualified Code(s): G89.29 - Other chronic pain Condition: Stable Disposition: ADMITTED INPATIENT Admitting Provider: Kellist Melany Kearney Unit Admitted: Telemetry
[2018-12-20] MEDS ORDERED: POTASSI CL 20 MEQ/1/2NS 1L 20 MEQ/1,000 ML RTUINJ IV ONE (16:05)
[2018-12-20 16:42] LABS: ABSOLUTE EOSINOPHILS # (AUTO) 0.2 10^3/uL (0.0-0.6); ABSOLUTE LYMPHOCYTES (AUTO) 2.4 10^3/uL (0.5-4.7); ABSOLUTE MONOCYTES (AUTO) 1.2 10^3/uL (0.1-1.4); ABSOLUTE NEUT (AUTO) 14.8 10^3/uL (1.7-8.2); BASOPHILS % (AUTO) 0.2 % (0-2); HEMATOCRIT 49.8 % (37.9-51.0); HEMOGLOBIN 16.9 g/dL (13.5-17.0); MEAN CORPUSCULAR HEMOGLOBIN 30.9 pg (27.0-33.4); MEAN CORPUSCULAR HGB CONC 33.9 g/dL (32.0-36.0); MEAN CORPUSCULAR VOLUME 91 fl (80-97); MONOCYTES % (AUTO) 6.6 % (3-13); PLATELET COUNT 271 10^3/uL (150-450); RED BLOOD COUNT 5.47 10^6/uL (4.35-5.55); RED CELL DISTRIBUTION WIDTH 13.9 % (11.5-14.0); SEGMENTED NEUTROPHILS % (AUTO) 79.2 % (42-78); TOTAL CELLS COUNTED % (AUTO) 100 %; WHITE BLOOD COUNT 18.7 10^3/uL (4.0-10.5)
[2018-12-20] MEDS ORDERED: ENOXAPARIN SODIUM INJ 80 MG/0.8 ML DISP.SYRIN SUBCUT ONE (16:55)
[2018-12-20] MEDS ORDERED: ALPRAZOLAM 0.25 MG TABLET PO ONE (16:58)
[2018-12-20] MEDS ORDERED: ONDANSETRON HCL INJ/PF 4 MG/2 ML SDV IV PRN (17:32)
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
[2018-12-20] MEDS ORDERED: DILTIAZEM HCL 60 MG TABLET PO ONE (18:30)
[2018-12-20] MEDS: LORAZEPAM INJ 2 MG/1 ML VIAL IV PRN ×3 (19:08→23:11)
[2018-12-20] MEDS: OXYCODONE-ACETAMINOPHEN 5-325 MG TABLET PO PRN ×2 (19:10→23:11)
[2018-12-20] MEDS: THIAMINE HCL 100 MG, FOLIC ACID 1 MG in NORMAL SALINE 250 ML IV SCH (19:11)
[2018-12-20] MEDS: ENOXAPARIN SODIUM INJ 40 MG/0.4 ML DISP.SYRIN SUBCUT SCH (19:22)
[2018-12-20] MEDS: ASPIRIN 81 MG TABLET, CHEWABLE PO SCH (21:18)
[2018-12-21] MEDS: LORAZEPAM INJ 2 MG/1 ML VIAL IV PRN ×6 (01:07→20:44)
[2018-12-21 04:54] LABS: HEMATOCRIT 40.1 % (37.9-51.0); MEAN CORPUSCULAR HEMOGLOBIN 31.3 pg (27.0-33.4); MEAN CORPUSCULAR HGB CONC 34.6 g/dL (32.0-36.0); MEAN CORPUSCULAR VOLUME 90 fl (80-97); PLATELET COUNT 218 10^3/uL (150-450); RED BLOOD COUNT 4.43 10^6/uL (4.35-5.55); RED CELL DISTRIBUTION WIDTH 13.7 % (11.5-14.0); WHITE BLOOD COUNT 13.2 10^3/uL (4.0-10.5)
[2018-12-21 04:56] LABS: HEMOGLOBIN 13.9 g/dL (13.5-17.0)
[2018-12-21 05:19] LABS: ANION GAP 6 (5-19); BLOOD UREA NITROGEN 25 mg/dL (7-20); CALCIUM 8.8 mg/dL (8.4-10.2); CARBON DIOXIDE 23 mmol/L (22-30); CHLORIDE 105 mmol/L (98-107); GLUCOSE 110 mg/dL (75-110); POTASSIUM 3.6 mmol/L (3.6-5.0); SODIUM 134.4 mmol/L (137-145)
[2018-12-21] MEDS: OXYCODONE-ACETAMINOPHEN 5-325 MG TABLET PO PRN ×4 (06:09→21:34)
[2018-12-21] MEDS ORDERED: DILTIAZEM HCL 60 MG TABLET PO SCH (10:00)
[2018-12-21] MEDS: DOCUSATE SODIUM 100 MG CAPSULE PO SCH (10:08)
[2018-12-21] MEDS: CARVEDILOL 6.25 MG TABLET PO SCH ×2 (10:09→21:35)
[2018-12-21] MEDS: ENOXAPARIN SODIUM INJ 40 MG/0.4 ML DISP.SYRIN SUBCUT SCH (10:14)
--- NOTE | 2018-12-21 14:18 | PDOC PROGRESS REPORT ---
Subjective Progress Note for:: 12/21/18 Subjective:: This is a 63 year old male patient presents who presented with palpitations and was found to be in Afib with RVR. He does have a history of paroxysmal Afib and was on PO cardizem, aspirin and lopressor but did not comply with medications. He also has a history of chronic bilateral knee and low back pains. He was swithced to PO cardizem and HR is in the low 100s but his pressures have been running on the low end in the 80-90 systolic with the cardizem. Tele shows eh is in Afib. Denies chest pain or SOB. Reason For Visit: A FIB WITH RVR, HYPOKALEMIA Physical Exam Vital Signs: Temp Pulse Resp BP Pulse Ox 98.1 F 54 L 16 110/80 94 12/21/18 11:39 12/21/18 11:39 12/21/18 11:39 12/21/18 11:39 12/21/18 11:39 Intake & Output 12/20/18 12/21/18 12/22/18 06:59 06:59 06:59 Intake Total 330.2 Balance 330.2 Weight 171 lb 4.787 oz General appearance: PRESENT: no acute distress, well-developed, well-nourished Head exam: PRESENT: atraumatic, normocephalic Eye exam: PRESENT: conjunctiva pink, EOMI, PERRLA. ABSENT: scleral icterus Ear exam: PRESENT: normal external ear exam Mouth exam: PRESENT: moist, tongue midline Neck exam: ABSENT: carotid bruit, JVD, lymphadenopathy, thyromegaly Respiratory exam: PRESENT: clear to auscultation manny. ABSENT: rales, rhonchi, wheezes Cardiovascular exam: PRESENT: irregular rhythm, tachycardia. ABSENT: diastolic murmur, rubs, systolic murmur Pulses: PRESENT: normal dorsalis pedis pul Vascular exam: PRESENT: normal capillary refill GI/Abdominal exam: PRESENT: normal bowel sounds, soft. ABSENT: distended, guarding, mass, organolmegaly, rebound, tenderness Rectal exam: PRESENT: deferred Neurological exam: PRESENT: alert, awake, oriented to person, oriented to place, oriented to time, oriented to situation, CN II-XII grossly intact. ABSENT: motor sensory deficit Results Laboratory Results: 12/21/18 04:04 12/21/18 04:04 12/20/18 12/20/18 12/20/18 14:00 14:00 14:00 WBC Cancelled RBC Cancelled Hgb Cancelled Hct Cancelled MCV Cancelled MCH Cancelled MCHC Cancelled RDW Cancelled Plt Count Cancelled Seg Neutrophils % Cancelled Lymphocytes % Cancelled Monocytes % Cancelled Eosinophils % Cancelled Basophils % Cancelled Absolute Neutrophils Cancelled Absolute Lymphocytes Cancelled Absolute Monocytes Cancelled Absolute Eosinophils Cancelled Absolute Basophils Cancelled Sodium 136.9 L Potassium 2.9 L* Chloride 100 Carbon Dioxide 19 L Anion Gap 18 BUN 23 H Creatinine 0.89 Est GFR ( Amer) > 60 Est GFR (Non-Af Amer) > 60 Glucose 146 H Calcium 9.7 Magnesium Total Bilirubin 1.4 H AST 32 ALT 47 Alkaline Phosphatase 81 Total Protein 6.4 Albumin 4.0 TSH 1.45 12/20/18 12/20/18 12/21/18 14:00 14:57 04:04 WBC 18.7 H 13.2 H RBC 5.47 4.43 Hgb 16.9 13.9 D Hct 49.8 40.1 MCV 91 90 MCH 30.9 31.3 MCHC 33.9 34.6 RDW 13.9 13.7 Plt Count 271 218 Seg Neutrophils % 79.2 H Lymphocytes % 13.0 Monocytes % 6.6 Eosinophils % 1.0 Basophils % 0.2 Absolute Neutrophils 14.8 H Absolute Lymphocytes 2.4 Absolute Monocytes 1.2 Absolute Eosinophils 0.2 Absolute Basophils 0.0 Sodium Potassium Chloride Carbon Dioxide Anion Gap BUN Creatinine Est GFR ( Amer) Est GFR (Non-Af Amer) Glucose Calcium Magnesium 2.4 H Total Bilirubin AST ALT Alkaline Phosphatase Total Protein Albumin TSH 12/21/18 12/21/18 04:04 04:04 WBC RBC Hgb Hct MCV MCH MCHC RDW Plt Count Seg Neutrophils % Lymphocytes % Monocytes % Eosinophils % Basophils % Absolute Neutrophils Absolute Lymphocytes Absolute Monocytes Absolute Eosinophils Absolute Basophils Sodium 134.4 L Potassium 3.6 Chloride 105 Carbon Dioxide 23 Anion Gap 6 BUN 25 H Creatinine 0.91 Est GFR ( Amer) > 60 Est GFR (Non-Af Amer) > 60 Glucose 110 Calcium 8.8 Magnesium Total Bilirubin AST ALT Alkaline Phosphatase Total Protein Albumin TSH 2.57 12/20/18 12/20/18 12/20/18 14:00 14:00 16:47 Creatine Kinase < 20 L CK-MB (CK-2) < 0.22 Troponin I < 0.012 < 0.012 Impressions: Chest X-Ray 12/20/18 13:33 IMPRESSION: No acute abnormality of the lungs in AP projection. Assessment and Plan - Diagnosis (1) Atrial fibrillation with RVR Is this a current diagnosis for this admission?: Yes Plan: He has a CHADVASC score of 1. Will switch PO cardizem to Coreg. Continue aspirin. (2) Hypokalemia Is this a current diagnosis for this admission?: Yes Plan: Resolved after Potassium replacement. - Time Time Spent with patient: 25-34 minutes
[2018-12-21] MEDS: THIAMINE HCL 100 MG, FOLIC ACID 1 MG in NORMAL SALINE 250 ML IV SCH (17:23)
[2018-12-21] MEDS ORDERED: PANTOPRAZOLE SODIUM 40 MG TABLET.DR PO ONE (18:12)
[2018-12-21] MEDS: ASPIRIN 81 MG TABLET, CHEWABLE PO SCH (21:34)
[2018-12-22] MEDS: LORAZEPAM INJ 2 MG/1 ML VIAL IV PRN ×4 (00:28→08:12)
[2018-12-22 01:22] LABS: APPEARANCE,URINE CLEAR; BILIRUBIN,URINE NEGATIVE (NEGATIVE); COLOR,URINE YELLOW; GLUCOSE, URINE NEGATIVE (NEGATIVE); KETONES,URINE NEGATIVE (NEGATIVE); LEUKOCYTE ESTERASE,URINE NEGATIVE (NEGATIVE); NITRITE,URINE NEGATIVE (NEGATIVE); PROTEIN,URINE NEGATIVE (NEGATIVE); URINE SPECIFIC GRAVITY 1.025; UROBILINOGEN,URINE NEGATIVE mg/dL (<2.0)
[2018-12-22] MEDS: OXYCODONE-ACETAMINOPHEN 5-325 MG TABLET PO PRN ×2 (01:34→06:45)
[2018-12-22] MEDS: DOCUSATE SODIUM 100 MG CAPSULE PO SCH (09:26)
[2018-12-22] MEDS: ENOXAPARIN SODIUM INJ 40 MG/0.4 ML DISP.SYRIN SUBCUT SCH (09:26)
[2018-12-22] MEDS ORDERED: CARVEDILOL 6.25 MG TABLET PO SCH (10:00)
[2018-12-22] MEDS ORDERED: (PENDING PHARMACY ID) (Morphine Sulfate [Morphabond Er] 15 MG) PO SCH (10:00)
[2018-12-22] MEDS ORDERED: CARVEDILOL 12.5 MG TABLET PO SCH (10:00)
[2018-12-22] MEDS ORDERED: LIDOCAINE 5% (700 MG) TRANSDERMAL ADH..PATCH TP SCH (10:00)
[2018-12-22] MEDS ORDERED: (PENDING PHARMACY ID) (Alprazolam [Alprazolam] 1 MG) PO SCH (10:00)
[2018-12-22] MEDS ORDERED: OXYCODONE HCL IR 5 MG TABLET PO PRN (10:08)
[2018-12-22] MEDS ORDERED: LIDOCAINE 5% (700 MG) TRANSDERMAL ADH..PATCH TP ONE (11:00)
[2018-12-22] MEDS: MORPHINE SULFATE SR 15 MG TABLET PO SCH ×2 (11:06→21:00)
[2018-12-22] MEDS: ALPRAZOLAM 0.5 MG TABLET PO SCH ×2 (11:07→17:00)
--- NOTE | 2018-12-22 13:26 | PDOC PROGRESS REPORT ---
Subjective Progress Note for:: 12/22/18 Subjective:: This is a 63 year old male patient presents who presented with palpitations and was found to be in Afib with RVR. He does have a history of paroxysmal Afib and was on PO cardizem, aspirin and lopressor but did not comply with medications. He also has a history of chronic bilateral knee and low back pains. 12/21: He was switched to PO cardizem and HR is in the low 100s but his pressures have been running on the low end in the 80-90 systolic with the cardizem. Tele shows eh is in Afib. Denies chest pain or SOB. 12/22: No acute event overnight but his heart rates was still in the 120s this morning while complaining of his chronic bilateral knee pain. Will resume his home pain regimen and see if this improves his heart rate down before increasing the Coreg. Reason For Visit: A FIB WITH RVR, HYPOKALEMIA Physical Exam Vital Signs: Temp Pulse Resp BP Pulse Ox 97.5 F 95 17 100/67 97 12/22/18 11:24 12/22/18 11:24 12/22/18 11:24 12/22/18 11:24 12/22/18 11:24 Intake & Output 12/21/18 12/22/18 12/23/18 06:59 06:59 06:59 Intake Total 330.2 960.2 Balance 330.2 960.2 Weight 171 lb 4.787 oz 174 lb 2.643 oz General appearance: PRESENT: no acute distress, well-developed, well-nourished Head exam: PRESENT: atraumatic, normocephalic Eye exam: PRESENT: conjunctiva pink, EOMI, PERRLA. ABSENT: scleral icterus Ear exam: PRESENT: normal external ear exam Mouth exam: PRESENT: moist, tongue midline Neck exam: ABSENT: carotid bruit, JVD, lymphadenopathy, thyromegaly Respiratory exam: PRESENT: clear to auscultation manny. ABSENT: rales, rhonchi, wheezes Cardiovascular exam: PRESENT: irregular rhythm, tachycardia. ABSENT: diastolic murmur, rubs, systolic murmur Pulses: PRESENT: normal dorsalis pedis pul Vascular exam: PRESENT: normal capillary refill GI/Abdominal exam: PRESENT: normal bowel sounds, soft. ABSENT: distended, guarding, mass, organolmegaly, rebound, tenderness Rectal exam: PRESENT: deferred Neurological exam: PRESENT: alert, awake, oriented to person, oriented to place, oriented to time, oriented to situation, CN II-XII grossly intact. ABSENT: motor sensory deficit Results Laboratory Results: 12/21/18 04:04 12/21/18 04:04 12/22/18 12/22/18 00:45 08:24 Magnesium Cancelled Urine Color YELLOW Urine Appearance CLEAR Urine pH 5.0 Ur Specific [place] 1.025 Urine Protein NEGATIVE Urine Glucose (UA) NEGATIVE Urine Ketones NEGATIVE Urine Blood NEGATIVE Urine Nitrite NEGATIVE Ur Leukocyte Esterase NEGATIVE Urine WBC (Auto) 0 Urine RBC (Auto) 0 12/20/18 12/20/18 12/20/18 14:00 14:00 16:47 Creatine Kinase < 20 L CK-MB (CK-2) < 0.22 Troponin I < 0.012 < 0.012 Impressions: Chest X-Ray 12/20/18 13:33 IMPRESSION: No acute abnormality of the lungs in AP projection. Assessment and Plan - Diagnosis (1) Atrial fibrillation with RVR Is this a current diagnosis for this admission?: Yes Plan: He has a CHADVASC score of 1. Will switch PO cardizem to Coreg. Continue aspirin. 12/22: Will optimize pain control first before increasing Coreg as he says his heart rate only goes up when he is in significant pain from his knee. Will increase Coreg to 12.5 mg bid if heart rate continues to be elevated despite optimal pain control. (2) Hypokalemia Is this a current diagnosis for this admission?: Yes Plan: Resolved after Potassium replacement. (3) Chronic pain Qualifiers: Chronic pain type: other chronic pain Qualified Code(s): G89.29 - Other chronic pain Is this a current diagnosis for this admission?: Yes Plan: Resume home morphine and oxycodone for his chronic knee and back pain. - Time Time Spent with patient: 15-24 minutes
[2018-12-22] MEDS ORDERED: KETOROLAC TROMETHAMINE INJ/PF 30 MG/1 ML SDV ONE (16:24)
[2018-12-22] MEDS ORDERED: KETOROLAC TROMETHAMINE INJ/PF 30 MG/1 ML SDV IV ONE (17:00)
[2018-12-22] MEDS: OXYCODONE HCL IR 5 MG TABLET PO PRN (18:17)
[2018-12-22] MEDS ORDERED: CARVEDILOL 6.25 MG TABLET ONE (20:56)
[2018-12-22] MEDS: CARVEDILOL 6.25 MG TABLET PO SCH (21:00)
[2018-12-22] MEDS: ASPIRIN 81 MG TABLET, CHEWABLE PO SCH (21:00)
[2018-12-23] MEDS: OXYCODONE HCL IR 5 MG TABLET PO PRN (00:19)
[2018-12-23 08:22] VITALS: BP 99/77
[2018-12-23] MEDS: DOCUSATE SODIUM 100 MG CAPSULE PO SCH (09:15)
[2018-12-23] MEDS: MORPHINE SULFATE SR 15 MG TABLET PO SCH (09:25)
[2018-12-23] MEDS: CARVEDILOL 6.25 MG TABLET PO SCH (09:25)
[2018-12-23] MEDS: ENOXAPARIN SODIUM INJ 40 MG/0.4 ML DISP.SYRIN SUBCUT SCH (09:26)
[2018-12-23] MEDS: ALPRAZOLAM 0.5 MG TABLET PO SCH (09:26)
[2018-12-23] MEDS ORDERED: LIDOCAINE 5% (700 MG) TRANSDERMAL ADH..PATCH TP SCH (10:00)
--- NOTE | 2018-12-23 18:32 | PDOC DISCHARGE SUMMARY ---
General - Admit/Disc Date/PCP Admission Date/Primary Care Provider: 12/20/18 17:52 KAREN CHANEY Discharge Date: 12/23/18 - Discharge Diagnosis (1) Atrial fibrillation with RVR Is this a current diagnosis for this admission?: Yes (2) Hypokalemia Is this a current diagnosis for this admission?: Yes (3) Chronic pain Is this a current diagnosis for this admission?: Yes - Additional Information Resuscitation Status: Full Code Discharge Diet: Cardiac Discharge Activity: Activity As Tolerated, Balance Activity w/Rest Prescriptions: Aspirin [Adult Aspirin Regimen] 81 mg PO DAILY #60 tablet. Carvedilol [Coreg 6.25 mg Tablet] 12.5 mg PO Q12 #60 tablet Morphine Sulfate [Ms-Contin Sr 15 mg Tablet] 15 mg PO Q12 #4 tablet. Oxycodone HCl [Oxycodone HCl 10 MG Tablet] 10 mg PO TIDP PRN 2 Days #6 tablet PRN Reason: For Pain Home Medications: Alprazolam 1 mg PO BID 12/14/18 Morphine Sulfate [Morphabond ER] 15 mg PO Q12 MDD 2 12/20/18 Aspirin [Adult Aspirin Regimen] 81 mg PO DAILY #60 tablet. 12/23/18 Carvedilol [Coreg 6.25 mg Tablet] 12.5 mg PO Q12 #60 tablet 12/23/18 Morphine Sulfate [Ms-Contin Sr 15 mg Tablet] 15 mg PO Q12 #4 tablet.sa 12/23/18 Oxycodone HCl [Oxycodone HCl 10 MG Tablet] 10 mg PO TIDP PRN 2 Days #6 tablet 12/23/18 History of Present Illness History of Present Illness: BOBBY HAYES is a 63 year old male Physical Exam Vital Signs: Temp Pulse Resp BP Pulse Ox 98.0 F 106 H 15 99/77 L 99 12/23/18 09:34 12/23/18 09:34 12/23/18 09:34 12/23/18 09:34 12/23/18 09:34 Intake & Output 12/22/18 12/23/18 12/24/18 06:59 06:59 06:59 Intake Total 960.2 1185 Output Total 0 Balance 960.2 1185 Weight 174 lb 2.643 oz 178 lb 9.191 oz Results Laboratory Results: 12/21/18 04:04 12/21/18 04:04 12/20/18 12/20/18 12/20/18 14:00 14:00 16:47 Creatine Kinase < 20 L CK-MB (CK-2) < 0.22 Troponin I < 0.012 < 0.012 Impressions: Chest X-Ray 12/20/18 13:33 IMPRESSION: No acute abnormality of the lungs in AP projection.
== END 2018-12-23 09:49 | disposition home or self-care (01) | DRG 310 ==
LOC: ER 13:30 → EH 17:52 → 3N 22:15
PROVIDERS: ADMIT Internal Medicine; ATTEND Internal Medicine
DX: I48.0 Paroxysmal atrial fibrillation (principal); E87.6 Hypokalemia; G89.29 Other chronic pain; F17.210 Nicotine dependence, cigarettes, uncomplicated; F41.9 Anxiety disorder, unspecified; F32.9 Major depressive disorder, single episode, unspecified; M25.562 Pain in left knee; M25.561 Pain in right knee; M54.5 Low back pain; Z79.891 Long term (current) use of opiate analgesic; Z79.899 Other long term (current) drug therapy; Z79.82 Long term (current) use of aspirin; Z82.3 Family history of stroke
CPT/HCPCS: 36415; 71045; 80048; 80053; 80307; 81001; 82550; 82553; 83735; 84443; 84484; 85025; 85027; 87040; 93005; 93010; 96365; 96366; 96375; 99285; J1650; J1885; J2060; J2270; J2405; J3411; J3480; J3490; J7050

== ENCOUNTER 2018-12-29 01:10 | Emergency (ER) | payer MEDICARE ==
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
--- NOTE | 2018-12-29 03:29 | RADIOLOGY REPORT (SQ) ---
EXAM DESCRIPTION: XR KNEE 1-2 VIEWS BILATERAL COMPLETED DATE/TME: 12/29/2018 02:46 CLINICAL HISTORY: 63 years Male, knee pain COMPARISON: None. Findings: Small superior patellar enthesophytes. Bones, joints, and soft tissues of the bilateral XR KNEE 2 VIEWS BILATERAL appear otherwise unremarkable. IMPRESSION: No acute findings.
[2018-12-29 06:21] VITALS: BP 122/78
== END 2018-12-29 06:20 | disposition home or self-care (01) ==
LOC: ER 01:10
DX: G89.29 Other chronic pain (principal); M25.562 Pain in left knee; M25.561 Pain in right knee; F10.129 Alcohol abuse with intoxication, unspecified; M54.9 Dorsalgia, unspecified; F17.200 Nicotine dependence, unspecified, uncomplicated; I48.91 Unspecified atrial fibrillation
CPT/HCPCS: 99283

== ENCOUNTER 2018-12-31 15:16 | Emergency (ER) | payer MEDICARE ==
[2018-12-31] MEDS ORDERED: MORPHINE SULFATE 10 MG/ML INJ SUBCUT ONE (15:37)
[2018-12-31] MEDS ORDERED: DILTIAZEM HCL INJ 25 MG/5 ML VIAL IV ONE (15:39)
--- NOTE | 2018-12-31 15:45 | ER Document Report ---
ED General - General Chief Complaint: Other Stated Complaint: SHORTNESS OF BREATH Time Seen by Provider: 12/31/18 15:25 Primary Care Provider: ROSY WELLS PA [PHYSICIAN [employer] REPAIR TECHNICIAN] - Follow up in 3-5 days Notes: Patient is a 63-year-old male emergency department with a chief complaint of shortness of breath. States his shortness of breath has been going on for the past 3-4 days, but is unsure as to when it truly started. He states that his legs are "on fire" and states that his leg pain is more prevalent than his shortness of breath. His leg pain is a chronic pain, from 20 years ago. He is asking for methadone and oxycodone. He does not remember when his last dose of oxycodone was. He was prescribed oxycodone from his primary care provider. He is a chronic alcoholic. He has been seen here in the emergency department multiple times for intoxication. He drinks at least 1 bottle of beer a day. TRAVEL OUTSIDE OF THE [place] IN LAST 30 DAYS: No - Related Data Allergies/Adverse Reactions: No Known Allergies Allergy (Verified 12/31/18 15:59) Past Medical History - General Information source: Patient - Social History Smoking Status: Current Every Day Smoker Frequency of alcohol use: Social Drug Abuse: Prescription drugs Family History: CVA Patient has suicidal ideation: No Patient has homicidal ideation: No - Past Medical History Cardiac Medical History: Reports: Hx Atrial Fibrillation Renal/ Medical History: Denies: Hx Peritoneal Dialysis Past Surgical History: Reports: Hx Orthopedic Surgery - back, Hx Tonsillectomy Review of Systems - Review of Systems Notes: REVIEW OF SYSTEMS: CONSTITUTIONAL : Denies recent illness. Denies recent unintentional weight loss. Denies fever, chills, or sweats. EENT: Denies eye, ear, throat, or mouth pain, discharge, or symptoms. Denies nasal or sinus congestion. CARDIOVASCULAR: Denies chest pain. RESPIRATORY: See HPI GASTROINTESTINAL: Denies nausea, vomiting, and diarrhea. Denies abdominal pain. Denies constipation. GENITOURINARY: Denies difficulty urinating, burning, blood in urine, urgency or frequency. MUSCULOSKELETAL: See HPI SKIN: Denies rash, itchiness, or lesions HEMATOLOGIC : Denies easy bruising or bleeding. LYMPHATIC: Denies swollen, painful, enlarged glands. NEUROLOGICAL: Denies no numbness or tingling denies weakness. Denies headache. Denies altered mental status. Denies alteration in speech. PSYCHIATRIC: Denies stress, anxiety, alteration in sleep patterns, or depression. All other systems reviewed and negative. Physical Exam - Vital signs Vitals: Temp Resp BP Pulse Ox 98.1 F 21 H 124/86 H 94 12/31/18 15:23 12/31/18 15:23 12/31/18 15:23 12/31/18 15:23 - Notes Notes: PHYSICAL EXAMINATION: GENERAL: Appears well, healthy, well-nourished, no acute distress. HEAD: Normocephalic, atraumatic. EYES: PERRL, conjunctiva normal, all extraocular movements intact, sclera nonicteric ENT: Moist mucous membranes. NECK: Supple, no noticeable swelling, redness, rash. Normal range of motion. LUNGS: Equal breath sounds bilaterally and clear to auscultation. No wheezes rales or rhonchi. CARDIOVASCULAR: Irregular rate, irregular rhythm. Radial pulses 2+, normal. ABDOMEN: Normoactive bowel sounds. Soft, nontender, no guarding, no rebound tenderness, and no masses palpated. EXTREMITIES: Normal strength and range of motion, no pitting or edema. No cyanosis. NEUROLOGICAL: Moves all extremities upon command. Strength 5/5 in all extremities. PSYCH: Normal mood, normal affect. SKIN: Warm, dry. No rash, lesions, ulcerations noted. Normal skin turgor. Course - Re-evaluation Re-evalutation: 12/31/18 15:45 Patient's heart rate is 135, and atrial fibrillation. He will receive a liter of normal saline and 10 mg of Cardizem IV x1. Will reevaluate heart rate. Pending labs and chest x-ray. He will received 4 mg of morphine subcutaneously for his pain. 12/31/18 17:24 Patient is requesting to leave AGAINST MEDICAL ADVICE because he is not going to get more pain medication. I had Dr. Liang come to bedside to speak with the santo aragon and explained to the patient that his workup is not complete and we will not treat his chronic pain here in the emergency department. I have explained to him that he could possibly . Dr. Liang also spoke with the patient and the patient is requesting his shoes to leave. His hematology shows a mild leukocytosis of 11,000. I do not suspect that he is septic at this time. His heart rate has improved to the low 100s with 10 mg of Cardizem and half of his normal saline bolus. Patient is upset and raising his voice at me, and states that I am not treating his pain well enough. I explained to him that this is not chronic pain management, and we did not treat chronic pain here in the emergency department. 12/31/18 17:31 Patient is verbalizing to leave AGAINST MEDICAL ADVICE. He is refusing to sign the AGAINST MEDICAL ADVICE paperwork. He states that he is leaving because I am not treating his pain and he is requesting methadone. I have explained to him that this is not chronic pain management. I have informed him that he could possibly . He states he does not care because his pain is not being taking care of. I explained to him that I did give him pain medication, and that I am more concerned about his atrial fibrillation. I will not give him for pain medication. The patient says he does not care about his atrial fibrillation, and is upset about not receiving enough pain medication. According to previous notes, he has been seen by pain management, but has ran out of his medication. Documentation was completed using voice recognition software, therefore there may be some unintended grammatical or punctual errors. - Vital Signs Vital signs: Temp Pulse Resp BP Pulse Ox 98.1 F 30 H 103/74 98 12/31/18 15:23 12/31/18 17:00 12/31/18 15:58 12/31/18 17:00 - Laboratory Result Diagrams: 12/31/18 16:20 12/31/18 16:20 Laboratory results interpreted by me: 12/31/18 12/31/18 16:20 16:20 WBC 11.7 H RDW 14.1 H Seg Neutrophils % 78.8 H Absolute Neutrophils 9.2 H Total Bilirubin 1.6 H Creatine Kinase 22 L - EKG Interpretation by Me Additional EKG results interpreted by me: 12/31/18 16:09 Atrial fibrillation. Rate 126; QRS 82; QT 304; QTC 441. No ST elevations or depressions. Discharge - Discharge Clinical Impression: Shortness of breath, Left against medical advice Atrial fibrillation Qualifiers: Atrial fibrillation type: chronic Qualified Code(s): I48.2 - Chronic atrial fibrillation Disposition: AGAINST MEDICAL ADVICE Additional Instructions: You are requesting to leave AGAINST MEDICAL ADVICE. Your workup is not complete. There is a possibility you can . We are not chronic pain management. Please follow-up with chronic pain management with your knee pain. If you develop worsening shortness of breath, have worsening symptoms, or have any symptoms that are worrisome to you, please return to the emergency department. Referrals: ROSY WELLS PA [PHYSICIAN [employer] REPAIR TECHNICIAN] - Follow up in 3-5 days
[2018-12-31] MEDS ORDERED: NORMAL SALINE 1000 ML 1,000 ML IV ONE (16:01)
--- NOTE | 2018-12-31 16:13 | RADIOLOGY REPORT (SQ) ---
EXAM DESCRIPTION: CHEST SINGLE VIEW COMPLETED DATE/TIME: 12/31/2018 4:05 pm REASON FOR STUDY: SOB COMPARISON: 12/20/2018 EXAM PARAMETERS: NUMBER OF VIEWS: One view. TECHNIQUE: Single frontal radiographic view of the chest acquired. RADIATION DOSE: NA LIMITATIONS: None. FINDINGS: LUNGS AND PLEURA: No opacities, masses or pneumothorax. No pleural effusion. MEDIASTINUM AND HILAR STRUCTURES: No masses. Contour normal. HEART AND VASCULAR STRUCTURES: Heart normal in size. Normal vasculature. BONES: No acute findings. HARDWARE: None in the chest. OTHER: No other significant finding. IMPRESSION: NO ACUTE RADIOGRAPHIC FINDING IN THE CHEST. TECHNICAL DOCUMENTATION: JOB ID: [id number] [employer]- All Rights Reserved Reading location - IP/workstation name: [email or web address]
[2018-12-31 16:44] LABS: ABSOLUTE BASOPHILS # (AUTO) 0.1 10^3/uL (0.0-0.2); ABSOLUTE EOSINOPHILS # (AUTO) 0.1 10^3/uL (0.0-0.6); ABSOLUTE LYMPHOCYTES (AUTO) 1.7 10^3/uL (0.5-4.7); ABSOLUTE MONOCYTES (AUTO) 0.7 10^3/uL (0.1-1.4); ABSOLUTE NEUT (AUTO) 9.2 10^3/uL (1.7-8.2); BASOPHILS % (AUTO) 0.5 % (0-2); EOSINOPHILS % (AUTO) 0.6 % (0-6); HEMOGLOBIN 15.3 g/dL (13.5-17.0); LYMPHOCYTES % (AUTO) 14.5 % (13-45); MEAN CORPUSCULAR HEMOGLOBIN 31.4 pg (27.0-33.4); MEAN CORPUSCULAR VOLUME 92 fl (80-97); MONOCYTES % (AUTO) 5.6 % (3-13); PLATELET COUNT 331 10^3/uL (150-450); RED BLOOD COUNT 4.87 10^6/uL (4.35-5.55); RED CELL DISTRIBUTION WIDTH 14.1 % (11.5-14.0); SEGMENTED NEUTROPHILS % (AUTO) 78.8 % (42-78); TOTAL CELLS COUNTED % (AUTO) 100 %; WHITE BLOOD COUNT 11.7 10^3/uL (4.0-10.5)
[2018-12-31 16:58] VITALS: BP 103/74
[2018-12-31 17:04] LABS: ALANINE AMINOTRANSFERASE 29 U/L (21-72); ALKALINE PHOSPHATASE 88 U/L (38-126); ANION GAP 12 (5-19); ASPARTATE AMINO TRANSFERASE 22 U/L (17-59); BILIRUBIN,DIRECT 0.4 mg/dL (0.0-0.4); BILIRUBIN,TOTAL 1.6 mg/dL (0.2-1.3); BLOOD UREA NITROGEN 13 mg/dL (7-20); CARBON DIOXIDE 24 mmol/L (22-30); CHLORIDE 107 mmol/L (98-107); CREATINE KINASE 22 U/L (55-170); GLUCOSE 97 mg/dL (75-110); POTASSIUM 3.6 mmol/L (3.6-5.0); SODIUM 143.3 mmol/L (137-145); TOTAL PROTEIN 6.6 g/dL (6.3-8.2)
[2018-12-31 17:15] LABS: CREATINE KINASE MB 0.61 ng/mL (<4.55)
[2018-12-31] MEDS ORDERED: HALOPERIDOL LACTATE INJ 5 MG/1 ML VIAL IV ONE (17:19)
[2018-12-31 17:21] LABS: TROPONIN I < 0.012 ng/mL
--- NOTE | 2018-12-31 20:47 | EKG REPORT ---
SEVERITY:- ABNORMAL ECG - ATRIAL FIBRILLATION, V-RATE 101-153 NONSPECIFIC T ABNORMALITIES, DIFFUSE LEADS : Confirmed by: Ishmael Talbot 31-Dec-2018 20:46:51
== END 2018-12-31 17:41 | disposition left against medical advice (07) ==
LOC: ER 15:16
DX: I48.2 Chronic atrial fibrillation (principal); M79.606 Pain in leg, unspecified; G89.29 Other chronic pain; D72.829 Elevated white blood cell count, unspecified; R06.02 Shortness of breath; F19.10 Other psychoactive substance abuse, uncomplicated; F17.200 Nicotine dependence, unspecified, uncomplicated; Z53.29 Procedure and treatment not carried out because of patient's decision for other reasons
CPT/HCPCS: 93005; 99285; 96372; 96361; 96374; 36415; 82553; 82550; 83735; 85025; 80053; 84484; 71045; 93010; J3490; J2270; J7030

== ENCOUNTER 2019-01-01 04:13 | Inpatient (IN) | payer MEDICARE ==
[2019-01-01] MEDS ORDERED: DILTIAZEM HCL/D5W 125 MG/125 ML RTUINJ IV ONE (04:16)
[2019-01-01] MEDS ORDERED: MORPHINE SULFATE IR 15 MG TABLET PO ONE (04:34)
[2019-01-01] MEDS ORDERED: DILTIAZEM HCL/D5W 125 MG/125 ML RTUINJ IV PRN ×2 (04:39→06:30)
--- NOTE | 2019-01-01 04:40 | ER Document Report ---
ED General - General Stated Complaint: RAPID HEART RATE Time Seen by Provider: 01/01/19 04:19 Primary Care Provider: HELEN BLOOM MD [Primary Care Provider] - Follow up as needed TRAVEL OUTSIDE OF THE [place] IN LAST 30 DAYS: No - HPI Notes: Patient is a 63-year-old male that presents to the emergency department for chief complaint of chest pain and palpitations. Patient began having increasing chest pain this evening while lying on the couch. He states it feels like a burning heartburn sensation in his substernal region. He reports shortly after that he started to heart palpitations. Theresa nt reports history of atrial fibrillation. He states he is supposed to be on a blood thinning medicine and carvedilol which he does not take. He states he does not take them because he does not like to take medications. Patient had a heart rate of 170 per EMS, this did improve after carvedilol bolus. Patient states his pain has improved and now that his heart rate is better. He does endorse drinking alcohol tonight. He states he drinks 5-6 days out of the week. Patient is also complaining of a sharp pain in his knees and back which is chronic in nature for him. He is requesting morphine and oxycodone. Patient states he will only stay in the hospital if I appropriately manage his pain. Past Medical History: Atrial fibrillation, chronic pain Past Surgical History: Reviewed in chart Social History: Daily alcohol Family History: Reviewed and noncontributory for presenting illness Allergies: Reviewed, see documented allergy list. REVIEW OF SYSTEMS: CONSTITUTIONAL : No fever No chills No diaphoresis No recent illness EENT: No vision changes No congestion No sore throat CARDIOVASCULAR: chest pain palpitations RESPIRATORY: shortness of breath No cough No difficulty breathing GASTROINTESTINAL: No abdominal pain No nausea No vomiting No diarrhea GENITOURINARY: No dysuria No hematuria No difficulty urinating MUSCULOSKELETAL: No back pain No leg pain No arm pain SKIN: No rashes No lesions LYMPHATIC: No swollen, enlarged glands. NEUROLOGICAL: No lightheadedness No headache No weakness No paresthesias PSYCHIATRIC: No anxiety No depression PHYSICAL EXAMINATION: Vital signs reviewed, nursing noted reviewed. GENERAL: Well-appearing, well-nourished and in no acute distress. HEAD: Atraumatic, normocephalic. EYES: Eyes appear normal, extraocular movements intact, sclera anicteric, conjunctiva are normal. ENT: nares patent, oropharynx clear without exudates. Moist mucous membranes. NECK: Normal range of motion, supple without lymphadenopathy LUNGS: Breath sounds clear to auscultation bilaterally and equal. No wheezes rales or rhonchi. HEART: Irregularly irregular a rhythm nd tachycardic rate without murmurs ABDOMEN: Soft, nontender, normoactive bowel sounds. No rebound, guarding, or rigidity. No masses appreciated. EXTREMITIES: Nontender, good range of motion, no pitting or edema. NEUROLOGICAL: No focal neurological deficits. Moves all extremities spontaneously Motor and sensory grossly intact on exam. PSYCH: Normal mood, normal affect. SKIN: Warm, Dry, normal turgor, no rashes or lesions noted on exposed skin - Related Data Allergies/Adverse Reactions: No Known Allergies Allergy (Verified 12/31/18 15:59) Past Medical History - Social History Smoking Status: Unknown if Ever Smoked Family History: CVA - Past Medical History Cardiac Medical History: Reports: Hx Atrial Fibrillation Renal/ Medical History: Denies: Hx Peritoneal Dialysis Past Surgical History: Reports: Hx Orthopedic Surgery - back, Hx Tonsillectomy Course - Re-evaluation Re-evalutation: 01/01/19 04:37 Vitals reviewed. Nursing notes reviewed. Patient is in atrial fibrillation and has improvement of his heart rate after carvedilol bolus. He is placed on carvedilol infusion for continued heart rate control. EKG shows A. fib with chest pain complaint. Nonspecific T wave abnormalities. Patient will be given aspirin for his chest pain. Chart review shows patient was in the emergency room yesterday and signed out AGAINST MEDICAL ADVICE after not receiving pain medications. He has requested morphine and oxycodone. Patient had last received a short course of pain medication after discharge from this hospital by Dr. Sandhu. He states he is in the process of trying to get signed up with pain management. He denies any current change in his pain from baseline. 01/01/19 06:00 Patient's heart rate has stabilized on the Cardizem. His workup shows a normal troponin. Patient will be admitted to the hospital for further management. Case discussed with Dr. Freedman who accepted admission. Laboratory 01/01/19 01/01/19 01/01/19 04:50 04:50 04:50 WBC 11.4 H RBC 4.63 Hgb 14.3 Hct 42.4 MCV 91 MCH 30.8 MCHC 33.7 RDW 14.5 H Plt Count 284 Seg Neutrophils % 75.0 Lymphocytes % 17.8 Monocytes % 5.9 Eosinophils % 0.9 Basophils % 0.4 Absolute Neutrophils 8.6 H Absolute Lymphocytes 2.0 Absolute Monocytes 0.7 Absolute Eosinophils 0.1 Absolute Basophils 0.0 Sodium 138.9 Potassium 3.7 Chloride 107 Carbon Dioxide 24 Anion Gap 8 BUN 12 Creatinine 0.70 Est GFR ( Amer) > 60 Est GFR (Non-Af Amer) > 60 Glucose 107 Calcium 9.8 Total Bilirubin 1.3 Direct Bilirubin 0.4 Neonat Total Bilirubin Not Reportable Neonat Direct Bilirubin Not Reportable Neonat Indirect Bili Not Reportable AST 24 ALT 30 Alkaline Phosphatase 83 Troponin I < 0.012 Total Protein 5.8 L Albumin 3.6 Chest X-Ray 01/01/19 04:20 IMPRESSION: Clear lungs. - Laboratory Result Diagrams: 01/01/19 04:50 01/01/19 04:50 Laboratory results interpreted by me: 01/01/19 01/01/19 04:50 04:50 WBC 11.4 H RDW 14.5 H Absolute Neutrophils 8.6 H Total Protein 5.8 L - EKG Interpretation by Me Additional EKG results interpreted by me: 01/01/19 04:37 Interpreted by myself [id number]: Atrial fibrillation with RVR, rate 101, normal axis, no ectopy, nonspecific T wave abnormalities Critical Care Note - Critical Care Note Total time excluding time spent on procedures (mins): 35 Comments: Critical care time 35 exclusive from separate billable procedures for a patient requiring complex medical decision making, and high potential for clinical deterioration. Time spent obtaining history from patient or surrogate, discussions with consultants, development of treatment plan with patient or surrogate, evaluation of patient's response to treatment, examination of patient, ordering and performing treatments and interventions, ordering and review of laboratory studies, re-evaluation of patient's condition, ordering and review of radiographic studies and review of old charts Discharge - Discharge Clinical Impression: Atrial fibrillation with RVR Chest pain Qualifiers: Chest pain type: unspecified Qualified Code(s): R07.9 - Chest pain, unspecified Condition: Stable Disposition: ADMITTED INPATIENT Admitting Provider: Tano (Hospitalist) Unit Admitted: [facility]
--- NOTE | 2019-01-01 04:53 | RADIOLOGY REPORT (SQ) ---
CLINICAL HISTORY: chest pain COMPARISON: December 31, 2018. TECHNIQUE: XR CHEST 1 VIEW 01/01/2019 4:20 AM CDT FINDINGS: Cardiac silhouette is normal in size. Lungs are clear without consolidation, atelectasis, mass or edema. There is no pleural effusion. There is no pneumothorax. There are no acute osseous findings. IMPRESSION: Clear lungs.
[2019-01-01] MEDS ORDERED: FAMOTIDINE INJ/PF 20 MG/2 ML SDV IV ONE (05:05)
[2019-01-01] MEDS ORDERED: LIDOCAINE 2% VISCOUS SOLN 20 ML UDCUP PO ONE (05:06)
[2019-01-01] MEDS ORDERED: METOCLOPRAMIDE HCL ORAL SOLN 10 MG/10 ML UDCUP PO ONE (05:06)
[2019-01-01] MEDS ORDERED: MAG HYDROX/AL HYDROX/SIMETH SUSP 30 ML UDCUP PO ONE (05:06)
[2019-01-01] MEDS ORDERED: ASPIRIN 325 MG TABLET PO ONE (05:06)
[2019-01-01 05:17] LABS: ABSOLUTE EOSINOPHILS # (AUTO) 0.1 10^3/uL (0.0-0.6); ABSOLUTE MONOCYTES (AUTO) 0.7 10^3/uL (0.1-1.4); ABSOLUTE NEUT (AUTO) 8.6 10^3/uL (1.7-8.2); BASOPHILS % (AUTO) 0.4 % (0-2); EOSINOPHILS % (AUTO) 0.9 % (0-6); HEMATOCRIT 42.4 % (37.9-51.0); HEMOGLOBIN 14.3 g/dL (13.5-17.0); LYMPHOCYTES % (AUTO) 17.8 % (13-45); MEAN CORPUSCULAR HEMOGLOBIN 30.8 pg (27.0-33.4); MEAN CORPUSCULAR HGB CONC 33.7 g/dL (32.0-36.0); MEAN CORPUSCULAR VOLUME 91 fl (80-97); MONOCYTES % (AUTO) 5.9 % (3-13); PLATELET COUNT 284 10^3/uL (150-450); RED BLOOD COUNT 4.63 10^6/uL (4.35-5.55); RED CELL DISTRIBUTION WIDTH 14.5 % (11.5-14.0); TOTAL CELLS COUNTED % (AUTO) 100 %; WHITE BLOOD COUNT 11.4 10^3/uL (4.0-10.5)
[2019-01-01 05:42] LABS: ALANINE AMINOTRANSFERASE 30 U/L (21-72); ALBUMIN 3.6 g/dL (3.5-5.0); ALKALINE PHOSPHATASE 83 U/L (38-126); ANION GAP 8 (5-19); ASPARTATE AMINO TRANSFERASE 24 U/L (17-59); BILIRUBIN,DIRECT 0.4 mg/dL (0.0-0.4); BILIRUBIN,TOTAL 1.3 mg/dL (0.2-1.3); BLOOD UREA NITROGEN 12 mg/dL (7-20); CALCIUM 9.8 mg/dL (8.4-10.2); CARBON DIOXIDE 24 mmol/L (22-30); CHLORIDE 107 mmol/L (98-107); GLUCOSE 107 mg/dL (75-110); POTASSIUM 3.7 mmol/L (3.6-5.0); SODIUM 138.9 mmol/L (137-145); TOTAL PROTEIN 5.8 g/dL (6.3-8.2)
[2019-01-01] MEDS ORDERED: ZOLPIDEM TARTRATE 5 MG TABLET PO PRN (06:16)
[2019-01-01] MEDS ORDERED: ACETAMINOPHEN 325 MG TABLET PO PRN (06:16)
[2019-01-01] MEDS ORDERED: ONDANSETRON 4 MG TAB.RAPDIS PO PRN (06:16)
[2019-01-01] MEDS ORDERED: DEXTROSE 40% GEL 15 GM TUBE PO PRN ×2 (06:16)
[2019-01-01] MEDS ORDERED: ONDANSETRON HCL INJ/PF 4 MG/2 ML SDV IV PRN (06:16)
[2019-01-01] MEDS ORDERED: DEXTROSE 50%-WATER 25 GM/50 ML DISP.SYRIN IV PRN ×2 (06:16)
[2019-01-01] MEDS ORDERED: MAG HYDROX/AL HYDROX/SIMETH SUSP 30 ML UDCUP PO PRN (06:16)
[2019-01-01] MEDS ORDERED: GLUCAGON,HUMAN RECOMB 1 MG INJ SUBCUT PRN (06:16)
--- NOTE | 2019-01-01 06:59 | PDOC H&P ---
History of Present Illness Admission Date/PCP: 01/01/19 06:05 HELEN LBOOM MD Patient complains of: Chest pain History of Present Illness: BOBBY HAYES is a 63 year old male with history of multiple medical problems that will be mentioned below who presented to the emergency room with acute onset of left-sided chest pain felt this pressure with associated palpitations and dyspnea as well as nausea without vomiting or diaphoresis. He denied any radiation of his pain. He denies any cough however has been having mild wheezing with no hemoptysis. No fever or chills. No dysuria, oliguria or hematuria flank pain. Upon arrival of EMS the patient's heart rate was 170 and he is given 25 mg of IV Cardizem bolus. Upon presentation to the emergency room, his vital signs revealed a blood pressure 138/93 with a pulse of 96-112, temperature 98.9 respiratory rate is 26 and pulse oximetry of 99% on room air. His chest x-ray showed no acute cardia pulmonary disease and EKG showed atrial fibrillation with a rate of 101. Labs revealed mild leukocytosis of 11.4 with neutrophilia and his CMP was remarkable for total protein of 5.8. Initial set of cardiac enzymes came back with negative troponin. The patient was given 10 mg of IV Reglan, 15 mg p.o. morphine sulfate, 325 g p.o. aspirin 20 mg IV Pepcid and GI cocktail as well as IV Cardizem drip. He will be admitted to telemetry bed for further evaluation and management Past Medical History Cardiac Medical History: Reports: Atrial Fibrillation, Other - Ongoing tobacco abuse Psychiatric Medical History: Reports: General Anxiety Disorder Past Surgical History Past Surgical History: Reports: Orthopedic Surgery - back, Tonsillectomy Social History Smoking Status: Current Every Day Smoker - 1 pack of cigars per day Frequency of Alcohol Use: Heavy Hx Recreational Drug Use: Yes Drugs: Cocaine, Methadone, Other Hx Prescription Drug Abuse: No Family History Family History: CAD, CVA, Malignancy Parental Family History Reviewed: Yes Children Family History Reviewed: Yes Sibling(s) Family History Reviewed.: Yes Medication/Allergy Home Medications: Alprazolam 1 mg PO BID 12/14/18 Morphine Sulfate [Morphabond ER] 15 mg PO Q12 MDD 2 12/20/18 Aspirin [Adult Aspirin Regimen] 81 mg PO DAILY #60 tablet. 12/23/18 Carvedilol [Coreg 6.25 mg Tablet] 12.5 mg PO Q12 #60 tablet 12/23/18 Morphine Sulfate [Ms-Contin Sr 15 mg Tablet] 15 mg PO Q12 #4 tablet.sa 12/23/18 Oxycodone HCl [Oxycodone HCl 10 MG Tablet] 10 mg PO TIDP PRN 2 Days #6 tablet 12/23/18 Allergies/Adverse Reactions: No Known Allergies Allergy (Verified 12/31/18 15:59) Review of Systems Review of Systems: As per history of present illness. All pertinent systems were reviewed above. Constitutional, HEENT, cardiovascular, respiratory, GI, , musculoskeletal, neuro, psychiatric, endocrine, integumentary and hematologic systems were revie wed and are otherwise negative/unremarkable except for positive findings mentioned above in the HPI. Physical Exam Vital Signs: Temp Pulse Resp BP Pulse Ox 98.9 F 98 01/01/19 04:13 01/01/19 04:13 Intake & Output 12/30/18 12/31/18 01/01/19 06:59 06:59 06:59 Intake Total 2 Balance 2 Weight 77.2 kg Exam: Generally: Pleasant middle-aged male in no acute distress Vital signs-as listed Head - atraumatic, normocephalic. Pupils - equal, round and reactive to light and accommodation. Extraocular movements are intact. No scleral icterus. Oropharynx - moist mucous membranes and tongue. No pharyngeal erythema or exudate. Neck - supple. No JVD. Carotid pulses 2+ bilaterally. No carotid bruits. No palpable thyromegaly or lymphadenopathy. Cardiovascular - regular rate and rhythm. Normal S1 and S2. No murmurs, gallops or rubs. Lungs - clear to auscultation bilaterally. Abdomen - soft and nontender. Positive bowel sounds. No palpable organomegaly or masses. Extremities - no pitting edema, clubbing or cyanosis. Neuro - grossly non-focal. Skin - no rashes. and rectal exam - deferred. Results Laboratory Results: 01/01/19 04:50 01/01/19 04:50 01/01/19 01/01/19 04:50 04:50 WBC 11.4 H RBC 4.63 Hgb 14.3 Hct 42.4 MCV 91 MCH 30.8 MCHC 33.7 RDW 14.5 H Plt Count 284 Seg Neutrophils % 75.0 Lymphocytes % 17.8 Monocytes % 5.9 Eosinophils % 0.9 Basophils % 0.4 Absolute Neutrophils 8.6 H Absolute Lymphocytes 2.0 Absolute Monocytes 0.7 Absolute Eosinophils 0.1 Absolute Basophils 0.0 Sodium 138.9 Potassium 3.7 Chloride 107 Carbon Dioxide 24 Anion Gap 8 BUN 12 Creatinine 0.70 Est GFR ( Amer) > 60 Est GFR (Non-Af Amer) > 60 Glucose 107 Calcium 9.8 Total Bilirubin 1.3 AST 24 ALT 30 Alkaline Phosphatase 83 Total Protein 5.8 L Albumin 3.6 01/01/19 04:50 Troponin I < 0.012 Impressions: Chest X-Ray 01/01/19 04:20 IMPRESSION: Clear lungs. Assessment and Plan - Diagnosis (1) Atrial fibrillation with RVR Is this a current diagnosis for this admission?: Yes Plan: The patient will be admitted to telemetry bed. We will continue him on IV Cardizem drip. We will follow serial Enzymes and obtain a 2D echo and cardiology consult this a.m. (2) Chest pain Qualifiers: Chest pain type: unspecified Qualified Code(s): R07.9 - Chest pain, unspecified Is this a current diagnosis for this admission?: Yes Plan: This is likely related to his rapid atrial fibrillation. Will cycle cardiac enzymes and obtain a cardiology consultation for further cardiac risk stratification. (3) Tobacco abuse Is this a current diagnosis for this admission?: Yes Plan: I counseled the patient for smoking cessation and the patient will receive further counseling here. (4) Alcohol abuse Is this a current diagnosis for this admission?: Yes Plan: We will place him on as needed Ativan and banana bag daily (5) DVT prophylaxis Is this a current diagnosis for this admission?: Yes Plan: Subcutaneous Lovenox (6) Chronic pain of both knees Is this a current diagnosis for this admission?: Yes Plan: We will place him on as needed Tylenol and he will be on as needed IV morphine sulfate. - Time Within: within 72 hours - Inpatient Certification Medical Necessity: Need Close Monitoring Due to Risk of Patient Decompensation, Need For Continuous Telemetry Monitoring, Risk of Complication if Not Cared For in Hospital, Other - Need for IV antiarrhythmic therapy - Plan Summary Plan Summary: The plan of care was discussed in details with the patient. I answered all questions. The patient agreed to proceed with the above-mentioned plan. The patient is presumably full code. This note was created by [employer] software and may contain typo errors that may have not been proofread.
[2019-01-01] MEDS: PANTOPRAZOLE SODIUM 40 MG TABLET.DR PO SCH (07:31)
[2019-01-01] MEDS: OXYCODONE HCL IR 5 MG TABLET PO PRN ×3 (07:32→23:22)
[2019-01-01] MEDS: ASPIRIN 81 MG TABLET, ENT COATED PO SCH ×2 (07:32→12:24)
[2019-01-01] MEDS: CARVEDILOL 6.25 MG TABLET PO SCH ×2 (07:33→21:17)
[2019-01-01 07:46] LABS: CHOLESTEROL 180.46 mg/dL (0-200); CREATINE KINASE 27 U/L (55-170); TRIGLYCERIDES 115 mg/dL (<150)
[2019-01-01 07:57] LABS: DIRECT LDL 122 mg/dL (<100)
[2019-01-01 07:59] LABS: ALCOHOL < 10 mg/dL (NONE DETECTED)
[2019-01-01] MEDS: NORMAL SALINE 1000 ML 1,000 ML IV PRN (09:15)
[2019-01-01] MEDS ORDERED: NORMAL SALINE 1000 ML 2,000 ML IV ONE (09:54)
[2019-01-01] MEDS ORDERED: (PENDING PHARMACY ID) (Morphine Sulfate [Morphabond Er] 15 MG) PO SCH (10:00)
[2019-01-01] MEDS: MORPHINE SULFATE SR 15 MG TABLET PO SCH ×2 (10:02→21:18)
[2019-01-01 11:19] LABS: CREATINE KINASE MB 0.48 ng/mL (<4.55)
[2019-01-01 11:25] LABS: TROPONIN I < 0.012 ng/mL
[2019-01-01] MEDS: ALPRAZOLAM 0.5 MG TABLET PO SCH ×2 (12:24→17:35)
[2019-01-01] MEDS: ENOXAPARIN SODIUM INJ 40 MG/0.4 ML DISP.SYRIN SUBCUT SCH (12:24)
--- NOTE | 2019-01-01 17:45 | Progress Note ---
Provider Note Provider Note: This is 63 years old male patient with past medical history of chronic atrial fibrillation, anxiety depression disorder, tobacco dependence and alcohol abuse presents with chief complaint of chest pain. At presentation patient was found to be A. fib with RVR for which acted on Cardizem drip. 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 Accept this patient I will follow him as a primary attending.
[2019-01-01] MEDS ORDERED: NORMAL SALINE 1000 ML 1,000 ML with POTASSIUM CHLORIDE 20 MEQ, MAGNESIUM SULFATE 8 MEQ,... IV SCH ×5 (18:00)
[2019-01-01 18:40] LABS: CREATINE KINASE MB 0.62 ng/mL (<4.55)
[2019-01-01 18:44] LABS: TROPONIN I < 0.012 ng/mL
--- NOTE | 2019-01-01 19:59 | XCELERA REPORT ---
[address] [address] Transthoracic Echocardiogram Report Name: BOBBY HAYES Age: 63 yrs Gender: Male : 1955 Patient Status: Inpatient Patient Location: [place] [address]^A Study Date: 01/01/2019 09:00 AM Height: 68 in Weight: 170 lb BSA: 1.9 m2 Procedure: A two-dimensional transthoracic echocardiogram with color flow and Doppler was performed. The study was technically limited with all images being suboptimal in quality. Reason For Study: A FIB W RVR History: A FIB W RVR. Ordering Physician: HEAVENLY LARSON Performed By: Lindy Traore Interpretation Summary The left ventricle is normal in size. There is normal left ventricular wall thickness. Left ventricular systolic function is borderline reduced. LV EF is 50% Doppler measurements suggest normal left ventricular diastolic function There is borderline global hypokinesis of the left ventricle. There is no thrombus. The right ventricle is normal in size and function. The right atrium is normal. The left atrium is mildly dilated. There is no evidence of mitral valve prolapse. There is no vegetation seen on the mitral valve. There is no mitral valve stenosis. There is a trace amount of mitral regurgitation There is no aortic valvular vegetation. There is no aortic valve stenosis There is no LVOT obstruction. No aortic regurgitation is present. There is no tricuspid stenosis. There is a trace amount of tricuspid regurgitation RVSP is 27 to 32 mm of Hg , with RA mean of 5 to 10. There is no pulmonic valvular stenosis. There is no pulmonic valvular regurgitation. The aortic root is mildly dilated The inferior vena cava appeared normal and decreased > 50% with respiration (RAP 5-10 mmHg) There is no pericardial effusion. MMode/2D Measurements & Calculations RVDd: 2.0 cm LVIDd: 4.9 cm FS: 21.3 % Ao root diam: 3.1 cm IVSd: 1.00 cm LVIDs: 3.9 cm EDV(Teich): Ao root area: LVPWd: 0.97 cm 113.3 ml 7.7 cm2 ESV(Teich): 64.5 mlLA dimension: 4.2 cm EF(Teich): 43.1 % LVLd ap4: 7.3 cm SV(MOD-sp4): EDV(MOD-sp4): 48.0 ml 95.0 ml LVLs ap4: 6.4 cm ESV(MOD-sp4): 47.0 ml EF(MOD-sp4): 50.5 % Doppler Measurements & Calculations MV E max barbara: MV P1/2t max barbara: Ao V2 max: LV V1 max P.2 cm/sec 79.2 cm/sec 80.8 cm/sec 1.7 mmHg MV A max barbara: MV P1/2t: 37.7 msec Ao max P.6 mmHg LV V1 max: 56.7 cm/sec MVA(P1/2t): 5.8 cm2 65.8 cm/sec MV E/A: 1.4 MV dec slope: 614.9 cm/sec2 MV dec time: 0.14 sec PA V2 max: TR max barbara: MV P1/2t-pr_phl: 48.5 cm/sec 230.4 cm/sec 37.7 msec PA max PG: TR max P.2 mmHg 0.94 mmHg Left Ventricle The left ventricle is normal in size. There is normal left ventricular wall thickness. Left ventricular systolic function is borderline reduced. LV EF is 50%. Doppler measurements suggest normal left ventricular diastolic function. There is borderline global hypokinesis of the left ventricle. There is no thrombus. Right Ventricle The right ventricle is normal in size and function. Atria The right atrium is normal. The left atrium is mildly dilated. Mitral Valve There is no evidence of mitral valve prolapse. There is no vegetation seen on the mitral valve. There is no mitral valve stenosis. There is a trace amount of mitral regurgitation. Aortic Valve There is no aortic valvular vegetation. There is no aortic valve stenosis. There is no LVOT obstruction. No aortic regurgitation is present. Tricuspid Valve There is no tricuspid stenosis. There is a trace amount of tricuspid regurgitation. RVSP is 27 to 32 mm of Hg , with RA mean of 5 to 10. Pulmonic Valve There is no pulmonic valvular stenosis. There is no pulmonic valvular regurgitation. Great Vessels The aortic root is mildly dilated. The inferior vena cava appeared normal and decreased > 50% with respiration (RAP 5-10 mmHg). Effusions There is no pericardial effusion. : HEAVENLY LARSON > Jacquie Jennings
[2019-01-01] MEDS: LORAZEPAM INJ 2 MG/1 ML VIAL IV PRN (21:28)
--- NOTE | 2019-01-02 00:04 | EKG REPORT ---
SEVERITY:- ABNORMAL ECG - ATRIAL FIBRILLATION, V-RATE 80-126 BORDERLINE T ABNORMALITIES, INFERIOR LEADS : Confirmed by: Ishmael Talbot 02-Jan-2019 00:02:38
[2019-01-02] MEDS: NORMAL SALINE 1000 ML 1,000 ML IV PRN (04:40)
[2019-01-02] MEDS: LORAZEPAM INJ 2 MG/1 ML VIAL IV PRN ×2 (04:40→06:42)
[2019-01-02 05:30] LABS: ABSOLUTE EOSINOPHILS # (AUTO) 0.2 10^3/uL (0.0-0.6); ABSOLUTE MONOCYTES (AUTO) 0.5 10^3/uL (0.1-1.4); ABSOLUTE NEUT (AUTO) 5.2 10^3/uL (1.7-8.2); BASOPHILS % (AUTO) 0.4 % (0-2); EOSINOPHILS % (AUTO) 2.8 % (0-6); HEMATOCRIT 32.6 % (37.9-51.0); LYMPHOCYTES % (AUTO) 25.1 % (13-45); MEAN CORPUSCULAR HEMOGLOBIN 31.9 pg (27.0-33.4); MEAN CORPUSCULAR HGB CONC 34.4 g/dL (32.0-36.0); MEAN CORPUSCULAR VOLUME 93 fl (80-97); MONOCYTES % (AUTO) 6.3 % (3-13); PLATELET COUNT 178 10^3/uL (150-450); RED BLOOD COUNT 3.51 10^6/uL (4.35-5.55); RED CELL DISTRIBUTION WIDTH 14.2 % (11.5-14.0); SEGMENTED NEUTROPHILS % (AUTO) 65.4 % (42-78); TOTAL CELLS COUNTED % (AUTO) 100 %; WHITE BLOOD COUNT 7.9 10^3/uL (4.0-10.5)
[2019-01-02 05:48] LABS: ANION GAP 5 (5-19); BLOOD UREA NITROGEN 10 mg/dL (7-20); CALCIUM 8.2 mg/dL (8.4-10.2); CARBON DIOXIDE 25 mmol/L (22-30); CHLORIDE 108 mmol/L (98-107); GLUCOSE 108 mg/dL (75-110); POTASSIUM 3.7 mmol/L (3.6-5.0); SODIUM 138.1 mmol/L (137-145)
[2019-01-02 06:05] LABS: HEMOGLOBIN 11.2 g/dL (13.5-17.0)
[2019-01-02] MEDS: PANTOPRAZOLE SODIUM 40 MG TABLET.DR PO SCH (06:42)
[2019-01-02] MEDS: OXYCODONE HCL IR 5 MG TABLET PO PRN (07:51)
[2019-01-02] MEDS: ENOXAPARIN SODIUM INJ 40 MG/0.4 ML DISP.SYRIN SUBCUT SCH (10:03)
[2019-01-02] MEDS: CARVEDILOL 6.25 MG TABLET PO SCH (10:03)
[2019-01-02] MEDS: ASPIRIN 81 MG TABLET, ENT COATED PO SCH (10:03)
[2019-01-02] MEDS: ALPRAZOLAM 0.5 MG TABLET PO SCH (10:04)
[2019-01-02] MEDS: MORPHINE SULFATE SR 15 MG TABLET PO SCH (10:04)
[2019-01-02 15:19] VITALS: BP 92/69
--- NOTE | 2019-01-04 22:10 | PDOC DISCHARGE SUMMARY ---
General - Admit/Disc Date/PCP Admission Date/Primary Care Provider: 01/01/19 06:05 HELEN BLOOM MD Discharge Date: 01/02/19 - Discharge Diagnosis (1) Atrial fibrillation with RVR Is this a current diagnosis for this admission?: Yes Summary: Patient was admitted to [facility] for Afib RVR which improved after diltiazem bolus. He was briefly on a diltiazem gtt and was transitioned to his home medication regiment upon achieving rate control. EKG demonstrated afib rvr. He was monitored on continuous cardiac telemetry; he remained in afib but with an acceptable rate generally in the 90s-100 and briefly elevating to 120 when ambulating outside to smoke despite being instructed multiple times by nursing staff not to do so. Echocardiogram was obtained; revealed LVEF 50% with borderline diastolic dysfunction. Serial troponins were negative. TSH is acceptable. Lipid panel is acceptable. Discussed with the patient the risks/benefits of chronic anticoagulation; he adamantly refuses to consider it, but does concede to "thinking about" daily ASA 81 mg. [id number] Score 2. He is discharged on carvedilol 12.5 mg BID. He is instructed to follow up with his primary care provided within 1 week. He is instructed to STOP smoking and decrease EtOH intake. He is advised to return to the emergency department as needed for concerning symptoms (2) Chest pain Is this a current diagnosis for this admission?: Yes Summary: Resolved. Patient states that he did not present with chest pain; advises he is here for knee pain. Likely secondary to afib RVR. CXR was benign. Serial troponins are negative. TSH and Lipid panel are acceptable. Echocardiogram showed LVEF 50% with borderling diastolic dysfunction. Recommend daily ASA and continue carvedilol for rate control. Patient declined recommendations for chronic anticoagulation and statin therapy. Recommend follow up with PCP and outpatient referral to Cardiology for stress testing. HEART Score 3. (3) Chronic pain Is this a current diagnosis for this admission?: Yes Summary: Continue home medication regiment. Declined to provide patient w/ refills of his chronic pain medications; advised to follow up with PCP within 1 week and recommend establishing with pain management provider. (4) Tobacco abuse Is this a current diagnosis for this admission?: Yes Summary: Smoking cessation strongly encouraged; nicotine replacement therapies were declined. (5) Alcohol abuse Is this a current diagnosis for this admission?: Yes Summary: Recommend decreased EtOH intake/abstaining from all alcohols. Recommend continuing MVI w/ iron, folic acid, and thiamin supplementation. - Additional Information Resuscitation Status: Full Code Discharge Diet: Cardiac Discharge Activity: Activity As Tolerated, Balance Activity w/Rest Prescriptions: Aspirin [Adult Aspirin Regimen] 81 mg PO DAILY #90 tablet. Carvedilol [Coreg 6.25 mg Tablet] 12.5 mg PO Q12 #120 tablet Folic Acid [Folvite 1 mg Tablet] 1 mg PO DAILY #30 tablet Multivit-Min/Iron/Folic Acid/K [Adults Multivitamin Tablet] 1 each PO DAILY #30 tablet Nicotine [Nicoderm 21 mg/24 Hr Transderm Patch] 1 patch TD DAILY #30 patch.td24 Pantoprazole Sodium [Protonix [address] Tablet] 40 mg PO Q6AM #30 tablet. Thiamine HCl [Thiamine 100 mg Tablet] 100 mg PO DAILY #30 tablet Home Medications: Alprazolam [Xanax] 1 mg PO BID 01/01/19 Carvedilol [Coreg 6.25 mg Tablet] 12.5 mg PO Q12 01/01/19 Morphine Sulfate [Ms-Contin Sr 15 mg Tablet] 15 mg PO Q12 01/01/19 Oxycodone HCl [Oxy-Ir 5 mg Tablet] 10 mg PO Q8HP PRN 01/01/19 Acetaminophen [Tylenol 325 mg Tablet] 650 mg PO Q4HP PRN tablet 01/02/19 Alprazolam [Xanax 0.5 mg Tablet] 1 mg PO BID tablet 01/02/19 Aspirin [Adult Aspirin Regimen] 81 mg PO DAILY #90 tablet. 01/02/19 Carvedilol [Coreg 6.25 mg Tablet] 12.5 mg PO Q12 #120 tablet 01/02/19 Folic Acid [Folvite 1 mg Tablet] 1 mg PO DAILY #30 tablet 01/02/19 Morphine Sulfate [Ms-Contin Sr 15 mg Tablet] 15 mg PO Q12 tablet.sa 01/02/19 Multivit-Min/Iron/Folic Acid/K [Adults Multivitamin Tablet] 1 each PO DAILY #30 tablet 01/02/19 Nicotine [Nicoderm 21 mg/24 Hr Transderm Patch] 1 patch TD DAILY #30 patch.td24 01/02/19 Oxycodone HCl [Oxy-Ir 5 mg Tablet] 10 mg PO TIDP PRN tablet 01/02/19 Pantoprazole Sodium [Protonix [address] Tablet] 40 mg PO Q6AM #30 tablet.dr 01/02/19 Thiamine HCl [Thiamine 100 mg Tablet] 100 mg PO DAILY #30 tablet 01/02/19 History of Present Illness History of Present Illness: H&P per Dr. Freedman: BOBBY HAYES is a 63 year old male with history of multiple medical problems that will be mentioned below who presented to the emergency room with acute onset of left-sided chest pain felt this pressure with associated palpitations and dyspnea as well as nausea without vomiting or diaphoresis. He denied any radiation of his pain. He denies any cough however has been having mild wheezing with no hemoptysis. No fever or chills. No dysuria, oliguria or hematuria flank pain. Upon arrival of EMS the patient's heart rate was 170 and he is given 25 mg of IV Cardizem bolus. Upon presentation to the emergency room, his vital signs revealed a blood pressure 138/93 with a pulse of 96-112, temperature 98.9 respiratory rate is 26 and pulse oximetry of 99% on room air. His chest x-ray showed no acute cardia pulmonary disease and EKG showed atrial fibrillation with a rate of 101. Labs revealed mild leukocytosis of 11.4 with neutrophilia and his CMP was remarkable for total protein of 5.8. Initial set of cardiac enzymes came back with negative troponin. The patient was given 10 mg of IV Reglan, 15 mg p.o. morphine sulfate, 325 g p.o. aspirin 20 mg IV Pepcid and GI cocktail as well as IV Cardizem drip. He will be admitted to telemetry bed for further evaluation and management Physical Exam Vital Signs: Temp Pulse Resp BP Pulse Ox 97.8 F 96 16 92/69 L 98 01/02/19 15:16 01/02/19 15:16 01/02/19 15:16 01/02/19 15:16 01/02/19 15:16 Intake & Output 01/03/19 01/04/19 01/05/19 06:59 06:59 06:59 Intake Total 1000 Balance 1000 General appearance: PRESENT: no acute distress, disheveled, well-developed, well-nourished - overweight Head exam: PRESENT: atraumatic, normocephalic Eye exam: PRESENT: conjunctiva pink, EOMI, PERRLA. ABSENT: scleral icterus Mouth exam: PRESENT: moist, tongue midline Neck exam: ABSENT: carotid bruit, JVD, lymphadenopathy, thyromegaly Respiratory exam: PRESENT: clear to auscultation manny, symmetrical, unlabored. ABSENT: rales, rhonchi, wheezes Cardiovascular exam: PRESENT: irregular rhythm. ABSENT: diastolic murmur, rubs, systolic murmur, tachycardia Pulses: PRESENT: normal dorsalis pedis pul Vascular exam: PRESENT: normal capillary refill GI/Abdominal exam: PRESENT: normal bowel sounds, soft. ABSENT: distended, guarding, mass, organolmegaly, rebound, tenderness Rectal exam: PRESENT: deferred Extremities exam: PRESENT: full ROM, tenderness - chronic knee pain. ABSENT: calf tenderness, clubbing, pedal edema Musculoskeletal exam: PRESENT: ambulatory, full ROM Neurological exam: PRESENT: alert, awake, oriented to person, oriented to place, oriented to time, oriented to situation, CN II-XII grossly intact. ABSENT: motor sensory deficit Psychiatric exam: PRESENT: agitated, appropriate affect, normal mood. ABSENT: homicidal ideation, suicidal ideation Skin exam: PRESENT: dry, intact, warm. ABSENT: cyanosis, rash Results Laboratory Results: 01/02/19 04:44 01/02/19 04:44 01/01/19 01/01/19 01/01/19 04:50 04:50 04:50 Creatine Kinase 27 L CK-MB (CK-2) 0.78 Troponin I < 0.012 Cancelled 01/01/19 01/01/19 01/01/19 10:50 10:50 18:00 Creatine Kinase < 20 L 23 L CK-MB (CK-2) 0.48 Troponin I < 0.012 01/01/19 18:00 Creatine Kinase CK-MB (CK-2) 0.62 Troponin I < 0.012 Impressions: Chest X-Ray 01/01/19 04:20 IMPRESSION: Clear lungs. Qualifiers - * PATIENT BEING DISCHARGED WITH ANY OF THE FOLLOWING DIAGNOSIS: No Plan Discharge Plan: Follow up with primary care provider within 1 week. Consider Pain Management Referral. STOP smoking. Take medications as prescribed. Return to the emergency department as needed for concerning symptoms. Time Spent: Less than 30 Minutes
== END 2019-01-02 16:00 | disposition home or self-care (01) | DRG 310 ==
LOC: ER 04:13 → EH 06:05 → 3W 11:19
PROVIDERS: ADMIT Family Medicine; ATTEND Family Medicine
DX: I48.2 Chronic atrial fibrillation (principal); G89.29 Other chronic pain; F10.10 Alcohol abuse, uncomplicated; F41.1 Generalized anxiety disorder; F17.290 Nicotine dependence, other tobacco product, uncomplicated; M25.562 Pain in left knee; M25.561 Pain in right knee; F32.9 Major depressive disorder, single episode, unspecified; Z79.899 Other long term (current) drug therapy; Z82.3 Family history of stroke; Z82.49 Family history of ischemic heart disease and other diseases of the circulatory system; Z80.9 Family history of malignant neoplasm, unspecified; Z79.82 Long term (current) use of aspirin; Z79.891 Long term (current) use of opiate analgesic
CPT/HCPCS: 36415; 71045; 80048; 80053; 80061; 80307; 82550; 82553; 83735; 84443; 84484; 85025; 93005; 93010; 93306; 99291; J1650; J2060; J3411; J3475; J3480; J3490; J7030; S0028

== ENCOUNTER 2019-01-03 19:59 | Emergency (ER) | payer MEDICARE ==
--- NOTE | 2019-01-03 22:21 | RADIOLOGY REPORT (SQ) ---
EXAM DESCRIPTION: XR KNEE 4 OR MORE VIEWS COMPLETED DATE/TME: 01/03/2019 21:37 CLINICAL HISTORY: 63 years, Male, pain COMPARISON: None. NUMBER OF VIEWS: Five TECHNIQUE: Frontal, oblique, and lateral radiographs of the right knee were obtained LIMITATIONS: None. FINDINGS: Patellar enthesopathy. Otherwise, visualized osseous structures appear normal without acute fracture or dislocation. No significant knee joint effusion is appreciated. IMPRESSION: No acute osseous anomaly. copyright 2010 [employer]- All Rights Reserved
--- NOTE | 2019-01-04 00:11 | ER Document Report ---
ED Extremity Problem, Lower - General Chief Complaint: Knee Pain Stated Complaint: RIGHT KNEE PAIN/LEFT KNEE PAIN Time Seen by Provider: 01/03/19 22:58 Primary Care Provider: HELEN BLOOM MD [Primary Care Provider] - Follow up as needed Mode of Arrival: Ambulatory Information source: Patient Notes: Patient is a 63-year-old male comes emergency room complaint of knee pain. Patient has a history of bilateral knee pain. Is very hard to arouse tonight he admits to taking methadone and Percocet and is found to have been also taking Xanax as well. So he is kind of incoherent during the physical examination. And refuses to wake up. I had a have the claims technician come over and take his pants off cycle even examine his knee. patient does wake up enough to tell me that it hurts to walk. I did look him up in her databank and he has had a couple of different times that he is coming with the same complaint and each time and nothing new has been found. Patient does state that he has been falling the last couple of days and that he landed on his knees. TRAVEL OUTSIDE OF THE [place] IN LAST 30 DAYS: No - HPI Patient complains to provider of: Injury, Pain Occurred: Last week Where: Home Onset/Duration: Constant, Persistent, Waxing and waning Quality of pain: Cramping, Sharp, Stabbing, Throbbing Severity: Moderate Pain Level: 3 Recent injury: Yes Exacerbated by: Walking Relieved by: Rest - Related Data Allergies/Adverse Reactions: No Known Allergies Allergy (Verified 12/31/18 15:59) Past Medical History - General Information source: Patient, [facility] Records - Social History Smoking Status: Current Every Day Smoker Cigarette use (# per day): No Chew tobacco use (# tins/day): Yes Smoking Education Provided: No Frequency of alcohol use: Heavy Drug Abuse: None Lives with: Family Family History: Reviewed & Not Pertinent, CAD, CVA, Malignancy Patient has suicidal ideation: No Patient has homicidal ideation: No - Past Medical History Cardiac Medical History: Reports: Hx Atrial Fibrillation Renal/ Medical History: Denies: Hx Peritoneal Dialysis Psychiatric Medical History: Reports: Hx Depression Past Surgical History: Reports: Hx Orthopedic Surgery - back, Hx Tonsillectomy Review of Systems - Review of Systems Constitutional: No symptoms reported EENT: No symptoms reported Cardiovascular: No symptoms reported Respiratory: No symptoms reported Gastrointestinal: No symptoms reported Genitourinary: No symptoms reported Male Genitourinary: No symptoms reported Musculoskeletal: See HPI, Joint pain, Joint swelling, Muscle pain Skin: No symptoms reported Hematologic/Lymphatic: No symptoms reported Neurological/Psychological: No symptoms reported -: Yes All other systems reviewed and negative Physical Exam - Vital signs Vitals: Temp Pulse Resp BP Pulse Ox 98.2 F 82 20 122/76 96 01/03/19 20:40 01/03/19 20:40 01/03/19 20:40 01/03/19 20:40 01/03/19 20:40 Interpretation: Normal - Notes Notes: PHYSICAL EXAMINATION: GENERAL: Patient is a well-nourished well-developed 63-year-old male who is in no distress and no pain tonight. He is sound asleep laying on the gurney and is difficult to arouse. Patient states he is difficult to arouse because he is taking his medications which include methadone oxycodone, alprazolam. But he states he still in pain in his knees. HEAD: Atraumatic, normocephalic. EYES: Pupils equal round and reactive to light, but they are mitotic. Extraocular movements intact, sclera anicteric, conjunctiva are normal. ENT: Nares patent, oropharynx clear without exudates. Moist mucous membranes. NECK: Normal range of motion, supple without lymphadenopathy LUNGS: Breath sounds clear to auscultation bilaterally and equal. No wheezes rales or rhonchi. HEART: Regular rate and rhythm without murmurs ABDOMEN: Soft, nontender, nondistended abdomen. No guarding, no rebound. No masses appreciated. Musculoskeletal: Physical exam patient's area of concern is his right knee which is what the only complaint is he tells me about tonight. There is no sign of abrasions ecchymosis or any type of crepitus on passive motion. There is no laxity in any direction anterior drawer is negative. Patient's vascular exam is also normal. He is got good popliteal pulse and good dorsalis pedal pulses. Negative straight leg raises bilaterally. NEUROLOGICAL: Normal speech, normal gait. Normal sensory, motor exams PSYCH: Normal mood, normal affect. SKIN: Warm, Dry, normal turgor, no rashes or lesions noted. Course - Re-evaluation Re-evalutation: 01/04/19 00:19 Patient has been hard to arouse the whole time is been here secondary to medication overdose as far as unintentional but making sound asleep. Given that I have examined him and have been unable to find any abnormalities with his right knee. Although it can definitely be a ligament or tendon time of p resentation we will put him in a knee immobilizer for precautionary sake. - Vital Signs Vital signs: Temp Pulse Resp BP Pulse Ox 98.2 F 82 20 122/76 96 01/03/19 20:40 01/03/19 20:40 01/03/19 20:40 01/03/19 20:40 01/03/19 20:40 Procedures - Immobilization Right Knee Time completed: 00:22 Pre-Proc Neuro Vasc Exam: Normal Immobilizer type: Knee immobilizer Performed by: Provider assisted Post-Proc Neuro Vasc Exam: Normal Alignment checked and good: Yes - Good alignment noted. Discharge - Discharge Clinical Impression: Right knee pain Qualifiers: Chronicity: chronic Qualified Code(s): M25.561 - Pain in right knee; G89.29 - Other chronic pain Condition: Good Disposition: HOME, SELF-CARE Instructions: Ice & Elevation ([facility]), Suspected Internal Knee Injury ([facility]), Knee Immobilizing Splint ([facility]) Additional Instructions: Using the immobilizer all times until you can follow-up with orthopedist. Highly suggest he find one relatively soon am giving you the name of the orthopedic group pain management nurse practitioner tonight you may contact your office to see if they can accommodate you. Should you have any concerns or problems he can return to ER for recheck. Referrals: HELEN BLOOM MD [Primary Care Provider] - Follow up as needed NATALIE JACOBSON MD [ACTIVE STAFF] - Follow up as needed
[2019-01-04 00:59] VITALS: BP 113/76
[2019-01-04] MEDS ORDERED: ACETAMINOPHEN 325 MG TABLET PO ONE (03:44)
== END 2019-01-04 04:55 | disposition home or self-care (01) ==
LOC: ER 19:59
DX: M25.561 Pain in right knee (principal); F17.200 Nicotine dependence, unspecified, uncomplicated; I48.91 Unspecified atrial fibrillation
CPT/HCPCS: 99283; 73564; L1830; A9270

== ENCOUNTER 2019-01-28 11:24 | Emergency (ER) | payer MEDICARE ==
[2019-01-28] MEDS ORDERED: KETOROLAC TROMETHAMINE INJ/PF 30 MG/1 ML SDV IV ONE (11:46)
[2019-01-28 11:57] LABS: ABSOLUTE BASOPHILS # (AUTO) 0.1 10^3/uL (0.0-0.2); ABSOLUTE EOSINOPHILS # (AUTO) 0.1 10^3/uL (0.0-0.6); ABSOLUTE LYMPHOCYTES (AUTO) 2.1 10^3/uL (0.5-4.7); ABSOLUTE MONOCYTES (AUTO) 1.1 10^3/uL (0.1-1.4); ABSOLUTE NEUT (AUTO) 12.7 10^3/uL (1.7-8.2); BASOPHILS % (AUTO) 0.4 % (0-2); EOSINOPHILS % (AUTO) 0.6 % (0-6); HEMATOCRIT 42.8 % (37.9-51.0); HEMOGLOBIN 14.2 g/dL (13.5-17.0); LYMPHOCYTES % (AUTO) 13.3 % (13-45); MEAN CORPUSCULAR HGB CONC 33.2 g/dL (32.0-36.0); MEAN CORPUSCULAR VOLUME 90 fl (80-97); MONOCYTES % (AUTO) 6.6 % (3-13); PLATELET COUNT 863 10^3/uL (150-450); RED BLOOD COUNT 4.74 10^6/uL (4.35-5.55); SEGMENTED NEUTROPHILS % (AUTO) 79.1 % (42-78); TOTAL CELLS COUNTED % (AUTO) 100 %
[2019-01-28 12:27] LABS: ALANINE AMINOTRANSFERASE 41 U/L (21-72); ALBUMIN 4.1 g/dL (3.5-5.0); ALKALINE PHOSPHATASE 151 U/L (38-126); ANION GAP 16 (5-19); ASPARTATE AMINO TRANSFERASE 53 U/L (17-59); BILIRUBIN,DIRECT 0.3 mg/dL (0.0-0.4); BILIRUBIN,TOTAL 0.9 mg/dL (0.2-1.3); BLOOD UREA NITROGEN 22 mg/dL (7-20); CALCIUM 9.9 mg/dL (8.4-10.2); CARBON DIOXIDE 27 mmol/L (22-30); CHLORIDE 100 mmol/L (98-107); GLUCOSE 109 mg/dL (75-110); LIPASE 94.9 U/L (23-300); POTASSIUM 4.5 mmol/L (3.6-5.0); SODIUM 142.6 mmol/L (137-145); TOTAL PROTEIN 7.5 g/dL (6.3-8.2)
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
[2019-01-28 14:05] VITALS: BP 112/74
== END 2019-01-28 14:03 | disposition home or self-care (01) ==
LOC: ER 11:24
DX: S31.111D Laceration without foreign body of abdominal wall, left upper quadrant without penetration into peritoneal cavity, subsequent encounter (principal); R10.84 Generalized abdominal pain; X78.9XXD Intentional self-harm by unspecified sharp object, subsequent encounter; Z87.891 Personal history of nicotine dependence
CPT/HCPCS: 99284; 96374; 36415; 83690; 85025; 80053; J1885

== ENCOUNTER 2019-05-02 08:28 | Emergency (ER) | payer MEDICARE ==
[2019-05-02 08:33] VITALS: BP 149/118
--- NOTE | 2019-05-02 09:14 | ER Document Report ---
HPI - HPI Patient complains to provider of: right rib pain Time Seen by Provider: 05/02/19 08:58 Onset: Last week Onset/Duration: Persistent Severity: Severe Pain Level: 5 Context: This 63-year-old male presents to the emergency department with complaints of right rib pain for the past week. He reports 1 week ago he was walking into his garage tripped and hit his right ribs on the door frame. Reports pain since that time. Reports it hurts when he coughs or takes a deep breath. Denies past medical history of injury to his ribs. Patient is very anxious. Reports he has history of anxiety and panic attacks. Patient also reports history of chronic knee pain. He did go to see Dr. Cam but decided to come here because he would have to pay a co-pay there. He denies fever vomiting diarrhea. Right ribs laterally tender to palpate. Patient was offered pain medication and declined Associated Symptoms: None Exacerbated by: Coughing, Deep breathing Relieved by: Denies Similar symptoms previously: No Recently seen / treated by doctor: No - CARDIOVASCULAR Cardiovascular: REPORTS: Chest pain - right lower ribs - REPRODUCTIVE Reproductive: DENIES: : Past Medical History - General Information source: Patient - Social History Smoking Status: Current Every Day Smoker Chew tobacco use (# tins/day): No Frequency of alcohol use: None Drug Abuse: None Lives with: Family Family History: Reviewed & Not Pertinent, CAD, CVA, Malignancy Patient has suicidal ideation: No Patient has homicidal ideation: No - Past Medical History Cardiac Medical History: Reports: Hx Atrial Fibrillation Renal/ Medical History: Denies: Hx Peritoneal Dialysis Psychiatric Medical History: Reports: Hx Depression Traumatic Medical History: Reports: Hx Fractures Past Surgical History: Reports: Hx Abdominal Surgery, Hx Orthopedic Surgery - back, Hx Tonsillectomy Vertical Provider Document - CONSTITUTIONAL Agree With Documented VS: Yes Exam Limitations: No Limitations General Appearance: WD/WN, No Apparent Distress - anxious - INFECTION CONTROL TRAVEL OUTSIDE OF THE [place] IN LAST 30 DAYS: No - HEENT HEENT: Atraumatic, Normocephalic - NECK Neck: Normal Inspection, Supple - RESPIRATORY Respiratory: No Respiratory Distress, Other - Right ribs tender to palpate laterally decreased sounds, weak cough - CARDIOVASCULAR Cardiovascular: Regular Rate - GI/ABDOMEN Gastrointestinal: Abdomen Soft, Abdomen Non-Tender - MUSCULOSKELETAL/EXTREMETIES Musculoskeletal/Extremeties: MAEW, FROM - NEURO Level of Consciousness: Awake, Alert, Appropriate Motor/Sensory: No Motor Deficit - DERM Integumentary: Warm, Dry Course - Re-evaluation Re-evalutation: 05/02/19 09:51 This 63-year-old male male presents emergency department with right rib pain after falling into the door frame in his garage. Reports it hurts to take deep breath. Patient is extremely anxious. 05/02/19 09:52 Ribs w/Chest X-Ray 05/02/19 08:59 IMPRESSION: No acute findings Multiple old healed right anterior rib fractures Patient has history of old rib fractures. This was pointed out to him he was instructed to take Motrin indicated for pain. He was also instructed on the importance of cough deep breathing. - Vital Signs Vital signs: Temp Pulse Resp BP Pulse Ox 98.5 F 85 16 149/118 H 99 05/02/19 08:32 05/02/19 08:32 05/02/19 08:32 05/02/19 08:32 05/02/19 08:32 - Diagnostic Test Radiology reviewed: Image reviewed, Reports reviewed Discharge - Discharge Clinical Impression: Rib pain on right side Condition: Stable Disposition: HOME, SELF-CARE Instructions: Use of [id number] Ibuprofen ([facility]), Rib Contusion ([facility]) Additional Instructions: *You have been evaluated for rib pain Your x-ray was negative for your new fracture although old healed rib fractures were noted. *Take motrin as indicated for pain *Cough and deep breathe at least once an hour as discussed *Follow up with a primary care provider within 1 week for recheck *Return to ED for worsening condition, changes, needs, concerns fever difficulty breathing Monitor your blood pressure. Your blood pressure was elevated today. This may be because you were anxious, in pain or because you need medication. It is important to follow up with your primary care provider for full evaluation. Forms: Smoking Cessation Education, Elevated Blood Pressure
--- NOTE | 2019-05-02 09:40 | RADIOLOGY REPORT (SQ) ---
EXAM DESCRIPTION: RIBS RIGHT W/PA CHEST COMPLETED DATE/TIME: 05/02/2019 9:26 am REASON FOR STUDY: fell hurt ribs COMPARISON: New chest films 01/01/2019, 12/31/2018, 12/20/2018 TECHNIQUE: Frontal view of the chest and additional views of the right ribs acquired. NUMBER OF VIEWS: PA chest Right rib detail films three views LIMITATIONS: None. FINDINGS: FRONTAL CXR: Lungs are free of focal infiltrates. Cardiac silhouette size, kemal unremarka ble. No pleural effusion or pneumothorax. RIBS: Multiple old healed right anterior and lateral rib fractures are present. No acute displaced rib fracture is identified. Visualized thoracic spine, right clavicle, scapula in tact. OTHER: No other significant finding. IMPRESSION: No acute findings Multiple old healed right anterior rib fractures COMMENT: SITE OF TRAUMA/COMPLAINT MARKED/STAMP COMPLETED: YES. TECHNICAL DOCUMENTATION: JOB ID: [id number] [employer]- All Rights Reserved Reading location - IP/workstation name: [email or web address]
== END 2019-05-02 10:01 | disposition home or self-care (01) ==
LOC: ER 08:28
DX: R07.81 Pleurodynia (principal); W01.198A Fall on same level from slipping, tripping and stumbling with subsequent striking against other object, initial encounter; F41.9 Anxiety disorder, unspecified; M25.569 Pain in unspecified knee; G89.29 Other chronic pain; F17.210 Nicotine dependence, cigarettes, uncomplicated
CPT/HCPCS: 99283

== ENCOUNTER 2019-07-25 05:04 | Emergency (ER) | payer MEDICARE ==
[2019-07-25 05:33] LABS: ABSOLUTE BASOPHILS # (AUTO) 0.1 10^3/uL (0.0-0.2); ABSOLUTE EOSINOPHILS # (AUTO) 0.2 10^3/uL (0.0-0.6); ABSOLUTE LYMPHOCYTES (AUTO) 1.6 10^3/uL (0.5-4.7); ABSOLUTE MONOCYTES (AUTO) 0.6 10^3/uL (0.1-1.4); ABSOLUTE NEUT (AUTO) 3.5 10^3/uL (1.7-8.2); EOSINOPHILS % (AUTO) 2.8 % (0-6); HEMATOCRIT 39.8 % (37.9-51.0); LYMPHOCYTES % (AUTO) 26.8 % (13-45); MEAN CORPUSCULAR HEMOGLOBIN 28.9 pg (27.0-33.4); MEAN CORPUSCULAR HGB CONC 32.7 g/dL (32.0-36.0); MEAN CORPUSCULAR VOLUME 88 fl (80-97); MONOCYTES % (AUTO) 10.8 % (3-13); PLATELET COUNT 338 10^3/uL (150-450); RED BLOOD COUNT 4.51 10^6/uL (4.35-5.55); RED CELL DISTRIBUTION WIDTH 17.4 % (11.5-14.0); SEGMENTED NEUTROPHILS % (AUTO) 58.6 % (42-78); TOTAL CELLS COUNTED % (AUTO) 100 %
[2019-07-25] MEDS ORDERED: DILTIAZEM HCL INJ 25 MG/5 ML VIAL IV ONE ×2 (05:33→05:50)
[2019-07-25 05:36] LABS: INTERNATIONAL RATION (INR) 1.02; PROTHROMBIN TIME 13.4 SEC (11.4-15.4)
[2019-07-25 05:52] LABS: ALBUMIN 3.3 g/dL (3.5-5.0); ALCOHOL 152 mg/dL (NONE DETECTED); ALKALINE PHOSPHATASE 93 U/L (38-126); ANION GAP 14 (5-19); ASPARTATE AMINO TRANSFERASE 30 U/L (17-59); BILIRUBIN,DIRECT 0.1 mg/dL (0.0-0.4); BILIRUBIN,TOTAL 0.6 mg/dL (0.2-1.3); BLOOD UREA NITROGEN 14 mg/dL (7-20); CALCIUM 8.4 mg/dL (8.4-10.2); CARBON DIOXIDE 22 mmol/L (22-30); CHLORIDE 108 mmol/L (98-107); GLUCOSE 100 mg/dL (75-110); POTASSIUM 3.5 mmol/L (3.6-5.0)
[2019-07-25 06:03] LABS: TROPONIN I 0.018 ng/mL
[2019-07-25 06:05] VITALS: BP 117/86
--- NOTE | 2019-07-25 06:28 | RADIOLOGY REPORT (SQ) ---
EXAM DESCRIPTION: XR CHEST 1 VIEW COMPLETED DATE/TME: 07/25/2019 05:09 CLINICAL HISTORY: 63 years, Male, Palpitations COMPARISON: None. NUMBER OF VIEWS: 1 TECHNIQUE: Portable chest LIMITATIONS: None. FINDINGS: Cardiomegaly. Osteopenia. No pneumothorax. Mild interstitial edema IMPRESSION: Cardiomegaly with mild interstitial edema copyright 2010 [employer]- All Rights Reserved
--- NOTE | 2019-07-25 07:26 | EKG REPORT ---
SEVERITY:- ABNORMAL ECG - ATRIAL FIBRILLATION, V-RATE 109-185 LOW VOLTAGE IN FRONTAL LEADS BORDERLINE T WAVE ABNORMALITIES : Confirmed by: Harish Acuña MD 25-Jul-2019 07:26:17
== END 2019-07-25 06:35 | disposition left against medical advice (07) ==
LOC: ER 05:04
DX: Z53.21 Procedure and treatment not carried out due to patient leaving prior to being seen by health care provider (principal)
CPT/HCPCS: 93005; 36415; 80307; 85025; 85610; 80053; 84484; 83880; 71045; 93010; J3490

== ENCOUNTER 2019-08-05 11:36 | Inpatient (IN) | payer MEDICARE ==
[2019-08-05] MEDS ORDERED: NORMAL SALINE 500 ML IV ONE ×2 (11:45→15:53)
[2019-08-05] MEDS ORDERED: CALCIUM GLUCONATE 1000 MG/10 ML INJ IV ONE ×2 (11:46→13:34)
[2019-08-05] MEDS ORDERED: DILTIAZEM HCL INJ 25 MG/5 ML VIAL IV ONE ×2 (11:47→13:51)
[2019-08-05] MEDS ORDERED: DILTIAZEM HCL/D5W 125 MG/125 ML RTUINJ IV PRN (11:53)
[2019-08-05] MEDS ORDERED: THIAMINE HCL 100 MG in NORMAL SALINE 50 ML IV ONE (12:01)
[2019-08-05 12:06] LABS: ABSOLUTE EOSINOPHILS # (AUTO) 0.1 10^3/uL (0.0-0.6); ABSOLUTE LYMPHOCYTES (AUTO) 1.9 10^3/uL (0.5-4.7); ABSOLUTE MONOCYTES (AUTO) 0.6 10^3/uL (0.1-1.4); ABSOLUTE NEUT (AUTO) 5.7 10^3/uL (1.7-8.2); BASOPHILS % (AUTO) 0.6 % (0-2); HEMATOCRIT 48.3 % (37.9-51.0); HEMOGLOBIN 15.9 g/dL (13.5-17.0); LYMPHOCYTES % (AUTO) 22.2 % (13-45); MEAN CORPUSCULAR HEMOGLOBIN 29.1 pg (27.0-33.4); MEAN CORPUSCULAR HGB CONC 32.9 g/dL (32.0-36.0); MEAN CORPUSCULAR VOLUME 89 fl (80-97); MONOCYTES % (AUTO) 7.6 % (3-13); PLATELET COUNT 349 10^3/uL (150-450); RED BLOOD COUNT 5.44 10^6/uL (4.35-5.55); RED CELL DISTRIBUTION WIDTH 18.1 % (11.5-14.0); SEGMENTED NEUTROPHILS % (AUTO) 68.6 % (42-78); TOTAL CELLS COUNTED % (AUTO) 100 %; WHITE BLOOD COUNT 8.4 10^3/uL (4.0-10.5)
[2019-08-05 12:15] LABS: INTERNATIONAL RATION (INR) 0.98
[2019-08-05 12:22] LABS: ALBUMIN 4.8 g/dL (3.5-5.0); ALKALINE PHOSPHATASE 141 U/L (38-126); ANION GAP 15 (5-19); ASPARTATE AMINO TRANSFERASE 47 U/L (17-59); BILIRUBIN,DIRECT 0.5 mg/dL (0.0-0.4); BILIRUBIN,TOTAL 2.1 mg/dL (0.2-1.3); BLOOD UREA NITROGEN 18 mg/dL (7-20); CALCIUM 9.7 mg/dL (8.4-10.2); CARBON DIOXIDE 25 mmol/L (22-30); CHLORIDE 100 mmol/L (98-107); GLUCOSE 117 mg/dL (75-110); POTASSIUM 3.8 mmol/L (3.6-5.0); TOTAL PROTEIN 8.6 g/dL (6.3-8.2)
[2019-08-05 12:34] LABS: CREATINE KINASE MB 2.69 ng/mL (<4.55); TROPONIN I 0.03 ng/mL
[2019-08-05] MEDS ORDERED: OXYCODONE-ACETAMINOPHEN 5-325 MG TABLET PO ONE (12:53)
--- NOTE | 2019-08-05 13:03 | RADIOLOGY REPORT (SQ) ---
EXAM DESCRIPTION: CHEST SINGLE VIEW COMPLETED DATE/TIME: 08/05/2019 12:30 pm REASON FOR STUDY: Shortness of breath COMPARISON: None. EXAM PARAMETERS: NUMBER OF VIEWS: One view. TECHNIQUE: Single frontal radiographic view of the chest acquired. RADIATION DOSE: NA LIMITATIONS: None. FINDINGS: LUNGS AND PLEURA: Bibasilar atelectasis without a superimposed consolidation, pleural effu geri or pneumothorax. MEDIASTINUM AND HILAR STRUCTURES: Stable mediastinal and hilar contours. HEART AND VASCULAR STRUCTURES: The cardiac silhouette is enlarged. The pulmonary vasculature is with in normal limits. BONES: No acute findings. HARDWARE: None in the chest. OTHER: No other finding. IMPRESSION: Cardiomegaly without a superimposed acute cardiopulmonary process. TECHNICAL DOCUMENTATION: JOB ID: [id number] [employer]- All Rights Reserved Reading location - IP/workstation name: [email or web address]
[2019-08-05] MEDS: MAGNESIUM SULFATE/D5W 1 GM/100 ML RTUPB IV SCH ×2 (13:45→16:47)
[2019-08-05] MEDS ORDERED: NORMAL SALINE 1000 ML 500 ML IV ONE (13:50)
[2019-08-05] MEDS ORDERED: NOREPINEPHRINE BITARTRATE INJ/PF 4 MG/4 ML SDV IV ONE ×2 (14:33→18:49)
[2019-08-05] MEDS: DEXTROSE 5%-WATER 250 ML with NOREPINEPHRINE BITARTRATE 4 MG IV PRN ×4 (14:36→18:53)
[2019-08-05] MEDS ORDERED: NORMAL SALINE 1000 ML 1,000 ML IV ONE (14:41)
--- NOTE | 2019-08-05 15:05 | EKG REPORT ---
SEVERITY:- ABNORMAL ECG - ATRIAL FIBRILLATION, V-RATE 124-172 PAIRED VENTRICULAR PREMATURE COMPLEXES BORDERLINE T ABNORMALITIES, ANT-LAT LEADS : Confirmed by: Jacquie Jennings MD 05-Aug-2019 15:04:47
--- NOTE | 2019-08-05 15:05 | EKG REPORT ---
SEVERITY:- ABNORMAL ECG - ATRIAL FIBRILLATION LOW VOLTAGE IN FRONTAL LEADS ABNORMAL T, CONSIDER ISCHEMIA, ANT-LAT LEADS : Confirmed by: Jacquie Jennings MD 05-Aug-2019 15:04:40
[2019-08-05] MEDS ORDERED: ETOMIDATE INJ/PF 20 MG/10 ML SDV IV ONE (15:16)
[2019-08-05 15:27] LABS: ABSOLUTE BASOPHILS # (AUTO) 0.1 10^3/uL (0.0-0.2); ABSOLUTE EOSINOPHILS # (AUTO) 0.1 10^3/uL (0.0-0.6); ABSOLUTE LYMPHOCYTES (AUTO) 2.6 10^3/uL (0.5-4.7); ABSOLUTE MONOCYTES (AUTO) 0.8 10^3/uL (0.1-1.4); ABSOLUTE NEUT (AUTO) 5.4 10^3/uL (1.7-8.2); BASOPHILS % (AUTO) 0.8 % (0-2); EOSINOPHILS % (AUTO) 0.9 % (0-6); HEMATOCRIT 41.8 % (37.9-51.0); LYMPHOCYTES % (AUTO) 28.6 % (13-45); MEAN CORPUSCULAR HEMOGLOBIN 29.1 pg (27.0-33.4); MEAN CORPUSCULAR HGB CONC 32.5 g/dL (32.0-36.0); MEAN CORPUSCULAR VOLUME 90 fl (80-97); MONOCYTES % (AUTO) 8.7 % (3-13); RED BLOOD COUNT 4.65 10^6/uL (4.35-5.55); RED CELL DISTRIBUTION WIDTH 18.4 % (11.5-14.0); TOTAL CELLS COUNTED % (AUTO) 100 %; WHITE BLOOD COUNT 8.9 10^3/uL (4.0-10.5)
[2019-08-05] MEDS ORDERED: VANCOMYCIN HCL INJ 1000 MG VIAL IV ONE (15:57)
[2019-08-05] MEDS ORDERED: AMPICILLIN SOD/SULBACTAM 3 GM VIAL IV ONE (15:57)
[2019-08-05 15:59] LABS: PLATELET COUNT 307 10^3/uL (150-450)
--- NOTE | 2019-08-05 15:59 | RADIOLOGY REPORT (SQ) ---
EXAM DESCRIPTION: CTA CHEST COMPLETED DATE/TIME: 08/05/2019 3:45 pm REASON FOR STUDY: Chest pain COMPARISON: Chest x-ray done earlier the same day. TECHNIQUE: CT scan of the chest performed using helical scanning technique with dynamic intravenous contrast injection. Images reviewed with lung, soft tissue and bone windows. Reconstructed coronal and sagittal MPR images reviewed. Additional 3 dimensional post-processing performed to develop Maximal Intensity Projection images (CT P). All images stored on PACS. All CT scanners at this facility use dose modulation, iterative reconstruction, and/or weight based d osing when appropriate to reduce radiation dose to as low as reasonably achievable (ALARA). [facility]: Dose Right [facility]: CareDose [facility]: Dose Right [facility]: Teradose 4D [facility]: [employer] CONTRAST TYPE AND DOSE: 91 mL Omnipaque 350 Contrast bolus optimized for the pulmonary arteries. Not diagnostic for the aorta. RENAL FUNCTION: BUN 18, creatinine 1.08 RADIATION DOSE: CT Rad equipment meets quality standard of care and radiation dose reduction techniq ues were employed. CTDIvol: 21.6 - 24.4 mGy. DLP: 2027 mGy-cm. . LIMITATIONS: None. FINDINGS: LUNGS AND PLEURA: There is a moderate right pleural effusion with right lower lobe atelect asis or pneumonia. There is a small left pleural effusion. AORTA AND GREAT VESSELS: No aneurysm. Contrast bolus not optimized for the aorta. HEART: No pericardial effusion. No significant coronary artery calcifications. PULMONARY ARTERIES: No emboli visualized in the main pulmonary arteries or the segmental branches. HILAR AND MEDIASTINAL STRUCTURES: No identified masses or abnormal nodes. HARDWARE: None in the chest. UPPER ABDOMEN: There is reflux into the intrahepatic IVC and hepatic veins suggestive of right-sided heart failure. THYROID AND OTHER SOFT TISSUES: No masses. No adenopathy. BONES: No acute or significant finding. 3D MIPS: Confirm above findings. OTHER: No other significant finding. IMPRESSION: Moderate right-sided pleural effusion with right lower lobe atelectasis or pneumonia. Small left pleural effusion. No pulmonary emboli. Reflux into the intrahepatic IVC and hepatic veins suggestive of right-sided heart failure. COMMENT: Quality ID # [id number]: Final reports with documentation of one or more dose reduction techniques (e.g., Automated exposure control, adjustment of the mA and/or kV according to patient size, use of iterative reconstruction technique) TECHNICAL DOCUMENTATION: JOB ID: [id number] [employer]- All Rights Reserved Reading location - IP/workstation name: [email or web address]
[2019-08-05 16:00] LABS: HEMOGLOBIN 13.6 g/dL (13.5-17.0)
[2019-08-05] MEDS ORDERED: HYDROCORTISONE SOD SUCCINATE INJ/PF 100 MG/2 ML SDV IV ONE (16:05)
[2019-08-05] MEDS ORDERED: FLUDROCORTISONE ACETATE 0.1 MG TABLET PO ONE (16:08)
[2019-08-05] MEDS ORDERED: DEXTROSE 5%-WATER 250 ML with VASOPRESSIN 100 UNIT IV PRN ×2 (16:08)
[2019-08-05] MEDS ORDERED: IPRATROPIUM/ALBUTEROL 0.5-2.5 MG/3 ML AMPUL NEB ONE (16:38)
--- NOTE | 2019-08-05 16:57 | ER Document Report ---
ED General - General Chief Complaint: Arrhythmia Stated Complaint: POSSIBLE AFIB Time Seen by Provider: 08/05/19 11:44 Primary Care Provider: DAREN BENITO PA-C [Primary Care Provider] - Follow up as needed TRAVEL OUTSIDE OF THE [place] IN LAST 30 DAYS: No - Related Data Allergies/Adverse Reactions: No Known Allergies Allergy (Verified 05/02/19 08:29) Home Medications: Xanax Past Medical History - Social History Smoking Status: Current Every Day Smoker Chew tobacco use (# tins/day): No Drug Abuse: None Family History: Reviewed & Not Pertinent, CAD, CVA, Malignancy Patient has suicidal ideation: No Patient has homicidal ideation: No - Past Medical History Cardiac Medical History: Reports: Hx Atrial Fibrillation Renal/ Medical History: Denies: Hx Peritoneal Dialysis Psychiatric Medical History: Reports: Hx Depression Traumatic Medical History: Reports: Hx Fractures Past Surgical History: Reports: Hx Abdominal Surgery, Hx Orthopedic Surgery - back, Hx Tonsillectomy Physical Exam - Vital signs Vitals: Resp BP 23 H 104/80 08/05/19 11:37 08/05/19 11:37 Course - Re-evaluation Re-evalutation: 08/05/19 16:54 ED review of old chart indicates blood pressure was around 110 systolic. Because he was slightly low he was pretreated with a calcium gluconate and then given a Cardizem bolus and drip. He still down slightly but not significantly. Is given additional dose of calcium gluconate and a second bolus of Cardizem and drip was increased. His heart rate stabilized as well as blood pressure was also given IV fluids. About 50 minutes later was called at bedside and he dropped his pressure to the 60s was diaphoretic. He was given a liter bolus of normal saline and Munoz catheter was inserted. There is minimal urine output and was given a second liter. Ultrasound was performed which showed that the IVC was collapsible and so given an additional 500 cc and then started on Levophed which titrated to improvement his blood pressure. Pressures remain low requiring increasing the Levophed. Because of this patient some of the literature he was treated with hydrocortisone and fludrocortisone CT was obtained blood cultures were obtained and he was treated with vancomycin and Unasyn his blood pressure seemed to stabilize initially have increasing shortness of breath and was placed on a nonrebreather and the nasal cannula. Did talk to the patient about intubation however does not want to go on the ventilator at this time. Will attempt stabilize him on nonrebreather and nasal cannula Medical decision making patient with a history of A. fib on no medicines presents with A. fib with rapid ventricular rate. He was controlled with Cardiz em and developed hypotension requiring aggressive fluid resuscitation and vasopressors. He shows evidence of pneumonia but no PE patient will need to be admitted to the hospital and have consult the hospitalist and seen the patient - Vital Signs Vital signs: Temp Pulse Resp BP Pulse Ox 98.5 F 35 H 175/144 H 96 08/05/19 11:42 08/05/19 16:32 08/05/19 16:32 08/05/19 16:28 - Laboratory Result Diagrams: 08/05/19 15:00 08/05/19 11:38 Laboratory results interpreted by me: 08/05/19 08/05/19 08/05/19 11:38 11:38 14:37 RDW 18.1 H Glucose 117 H POC Glucose 199 H Lactic Acid Total Bilirubin 2.1 H Direct Bilirubin 0.5 H Alkaline Phosphatase 141 H Total Protein 8.6 H 08/05/19 08/05/19 15:00 15:00 RDW 18.4 H Glucose POC Glucose Lactic Acid 4.2 H Total Bilirubin Direct Bilirubin Alkaline Phosphatase Total Protein 08/05/19 16:57 Lactate was noted elevated. Initial troponin was 0.0 3 repeat was 0.026 initial hemoglobin was 48 and repeat was 42 at the fluids and probably hemodilution. Hemoccult was negative - EKG Interpretation by Me Additional EKG results interpreted by me: 08/05/19 16:58 His initial EKG shows atrial fibrillation with rapid ventricular rate with some minimal nonspecific ST wave changes. Repeat EKG was atrial fibrillation 12 ventricular rate around 100 and inverted T waves on the anterior lateral leads however there is no ST elevation in aVR to suggest a PE and no right axis deviation. Third EKG was obtained which is unchanged from the second. Procedures - Additional Procedures Critical care time spent obtaining history from patient or surrogate, discussions with consultants, development of treatment plan with patient or surr Time performed: 16:59 Notes: 08/05/19 16:59 Patient presented with A. fib with rapid ventricular rate requiring medication became hypotensive and was fully resuscitated requiring vasopressors and started having tachypnea and low O2 sats was discussed with the bag washer the hospitalist and the radiologist called additional history from family members Discharge - Discharge Clinical Impression: Sepsis associated hypotension, A. fib with rapid ventricular rate Disposition: ADMITTED INPATIENT Admitting Provider: [facility] Unit Admitted: ICU Referrals: DAREN BENITO PA-C [Primary Care Provider] - Follow up as needed
--- NOTE | 2019-08-05 16:58 | RADIOLOGY REPORT (SQ) ---
EXAM DESCRIPTION: CT ABD/PELVIS WITH IV ONLY COMPLETED DATE/TIME: 08/05/2019 3:45 pm REASON FOR STUDY: Hypotension COMPARISON: None. TECHNIQUE: CT scan of the abdomen and pelvis performed using helical scanning technique with dynamic intravenous contrast injection. No oral contrast. Images reviewed with lung, soft tissue, and bone windows. Reconstructed coronal and sagittal MPR images reviewed. Patient was unable to remain on the table for acquisition of delayed images. All images stored on PACS. All CT scanners at this facility use dose modulation, iterative reconstruction, and/or weight based d osing when appropriate to reduce radiation dose to as low as reasonably achievable (ALARA). [facility]: Dose Right [facility]: CareDose [facility]: Dose Right [facility]: Teradose 4D [facility]: [employer] CONTRAST TYPE AND DOSE: contrast/concentration: Isovue 350.00 mg/ml; Total Contrast Delivered: 91.0 ml; Total Saline Delivered: 70.0 ml RENAL FUNCTION: BUN 18 creatinine 1.08 RADIATION DOSE: . LIMITATIONS: None. FINDINGS: LOWER CHEST: See separate report of the CT of the chest. LIVER: Normal size. No masses. No dilated ducts. SPLEEN: Normal size. No focal lesions. PANCREAS: Cannot exclude mild stranding around the head and neck of the pancreas. There is no thicke elroy of the right renal fascia. No pancreatic mass is seen. GALLBLADDER: No identified stones by CT criteria. No inflammatory changes to suggest cholecystitis. ADRENAL GLANDS: No significant masses or asymmetry. RIGHT KIDNEY AND URETER: No solid masses. No significant calcifications. No hydronephrosis or hyd roureter. LEFT KIDNEY AND URETER: No solid masses. No significant calcifications. No hydronephrosis or hydr oureter. AORTA AND VESSELS: 34 mm aneurysm of the infrarenal abdominal aorta. RETROPERITONEUM: No retroperitoneal adenopathy, hemorrhage or masses. BOWEL AND PERITONEAL CAVITY: Descending and sigmoid diverticulosis with no acute inflammation. No ob vious bowel mass. APPENDIX: Not identified. PELVIS: A Munoz catheter is present in the urinary bladder that is decompressed. No pelvic mass or f luid collection. ABDOMINAL WALL: No masses. No hernias. BONES: Posterior rods from L4-S1 with screws through the pedicles. OTHER: No other significant finding. IMPRESSION: 1. Cannot exclude mild pancreatitis. Correlate clinically. 2. 34 mm aneurysm of the infrarenal abdominal aorta. 3. Diverticulosis coli. COMMENT: AAA Size: Follow-up Recommendation 34 mm. Recommend follow-up every 3 years. *Based upon the Society for Vascular Surgery Guidelines: J Vasc Surg. 2009 Oct;50(4 Suppl):S2-49 *For aortas of maximum diameter of 2.6-2.9 cm meeting the criteria for AAA (?1.5 x proximal normal se gment) TECHNICAL DOCUMENTATION: JOB ID: [id number] Quality ID # [id number]: Final reports with documentation of one or more dose reduction techniques (e.g., Au tomated exposure control, adjustment of the mA and/or kV according to patient size, use of iterative reconstruction technique) 2010 [employer]- All Rights Reserved Reading location - IP/workstation name: [email or web address]
[2019-08-05 17:11] LABS: AMORPHOUS SEDIMENT,URINE 1+ /HPF; APPEARANCE,URINE TURBID; BILIRUBIN,URINE SMALL (NEGATIVE); COLOR,URINE YELLOW; GLUCOSE, URINE NEGATIVE (NEGATIVE); KETONES,URINE TRACE mg/dL (NEGATIVE); LEUKOCYTE ESTERASE,URINE NEGATIVE (NEGATIVE); NITRITE,URINE NEGATIVE (NEGATIVE); PROTEIN,URINE 100 mg/dL (NEGATIVE); URINE SPECIFIC GRAVITY 1.029
[2019-08-05] MEDS ORDERED: RINGERS SOLUTION,LACTATED 1,000 ML IV PRN (17:20)
[2019-08-05] MEDS ORDERED: HEPARIN SODIUM,PORCINE/D5W 25,000 UNIT/250 ML RTUINJ IV PRN (17:34)
[2019-08-05 17:57] LABS: ARTERIAL BLOOD BASE EXCESS -8.8 mmol/L; ARTERIAL BLOOD FIO2 100%; ARTERIAL BLOOD H2CO3 1.21 mmol/L (1.05-1.35); ARTERIAL BLOOD HCO3 17.7 mmol/L (20-24); ARTERIAL BLOOD O2 SATURATION 99.3 % (94-98); ARTERIAL BLOOD PCO2 40.2 mmHg (35-45); ARTERIAL BLOOD PH 7.26 (7.35-7.45); ARTERIAL BLOOD PO2 209.6 mmHg (80-100)
[2019-08-05] MEDS ORDERED: THIAMINE HCL 500 MG, FOLIC ACID 1 MG in NORMAL SALINE 250 ML IV SCH (18:00)
[2019-08-05] MEDS ORDERED: HEPARIN SOD (PORCINE) 1,000 UNIT/ML 10 ML VIAL IV ONE (18:00)
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
[2019-08-05 19:16] LABS: URINE AMPHETAMINES SCREEN NEGATIVE; URINE BARBITURATES SCREEN NEGATIVE; URINE BENZODIAZEPINES SCREEN UNCONFIRMED POSITIVE; URINE COCAINE SCREEN NEGATIVE; URINE MARIJUANA (THC) SCREEN NEGATIVE; URINE METHADONE SCREEN NEGATIVE; URINE PHENCYCLIDINE SCREEN NEGATIVE
[2019-08-05] MEDS ORDERED: RINGERS SOLUTION,LACTATED 1,000 ML IV ONE (19:28)
[2019-08-05 19:30] LABS: CREATINE KINASE MB 1.69 ng/mL (<4.55); TROPONIN I 0.027 ng/mL
[2019-08-05] MEDS ORDERED: ALPRAZOLAM 0.5 MG TABLET PO PRN (19:33)
[2019-08-05] MEDS ORDERED: AZITHROMYCIN 500 MG in DEXTROSE 5%-WATER 250 ML IV SCH (20:00)
[2019-08-05 20:16] LABS: A TYPE INFLUENZA AG NEGATIVE (NEGATIVE); B INFLUENZA AG NEGATIVE (NEGATIVE)
[2019-08-05] MEDS ORDERED: ALBUMIN HUMAN 500 ML IV ONE (20:30)
[2019-08-05] MEDS ORDERED: HEPARIN SOD (PORCINE) 1,000 UNIT/ML 10 ML VIAL IV PRN (20:36)
[2019-08-05] MEDS ORDERED: MIDODRINE HCL 5 MG TABLET PO ONE (21:00)
[2019-08-05] MEDS: IPRATROPIUM/ALBUTEROL 0.5-2.5 MG/3 ML AMPUL NEB SCH (21:04)
[2019-08-05] MEDS: PIPERACILLIN SODIUM/TAZOBACTAM 3.375 GM in NORMAL SALINE 100 ML IV SCH (21:23)
[2019-08-05] MEDS: GABAPENTIN 100 MG CAPSULE PO SCH (21:32)
[2019-08-05] MEDS ORDERED: HEPARIN SOD (PORCINE) 5,000 UNIT/ML 1 ML VIAL SUBCUT SCH (22:00)
[2019-08-05] MEDS ORDERED: FOLIC ACID INJ 5 MG/1 ML 10 ML VIAL IV SCH (22:00)
[2019-08-05] MEDS ORDERED: METHYLPREDNISOLONE INJ 40 MG/1 ML SDV IV SCH (22:00)
[2019-08-05 23:59] LABS: CREATINE KINASE MB 1.64 ng/mL (<4.55); TROPONIN I 0.032 ng/mL
--- NOTE | 2019-08-06 00:06 | EKG REPORT ---
SEVERITY:- ABNORMAL ECG - ATRIAL FIBRILLATION, V-RATE 79-108 LOW VOLTAGE IN FRONTAL LEADS ABNORMAL T, CONSIDER ISCHEMIA, ANT-LAT LEADS : Confirmed by: Jacquie Jennings MD 06-Aug-2019 00:05:13
--- NOTE | 2019-08-06 00:06 | EKG REPORT ---
SEVERITY:- ABNORMAL ECG - ATRIAL FIBRILLATION, V-RATE 78-100 ABNORMAL T, CONSIDER ISCHEMIA, DIFFUSE LEADS PROLONGED QT INTERVAL : Confirmed by: Jacquie Jennings MD 06-Aug-2019 00:05:19
[2019-08-06] MEDS: IPRATROPIUM/ALBUTEROL 0.5-2.5 MG/3 ML AMPUL NEB SCH ×3 (00:09→08:02)
[2019-08-06] MEDS ORDERED: FENTANYL CITRATE INJ/PF 100 MCG/2 ML AMPUL ONE (00:12)
[2019-08-06] MEDS ORDERED: VASOPRESSIN INJ 20 UNIT/1 ML VIAL ONE (00:33)
[2019-08-06] MEDS ORDERED: FENTANYL CITRATE INJ/PF 100 MCG/2 ML AMPUL IV ONE ×2 (00:45→12:00)
[2019-08-06] MEDS ORDERED: NOREPINEPHRINE BITARTRATE INJ/PF 4 MG/4 ML SDV IV ONE (00:51)
[2019-08-06] MEDS: DEXTROSE 5%-WATER 250 ML with NOREPINEPHRINE BITARTRATE 4 MG IV PRN ×2 (01:00)
[2019-08-06] MEDS: DEXTROSE 5%-WATER 250 ML with VASOPRESSIN 100 UNIT IV PRN ×4 (01:09→12:46)
[2019-08-06] MEDS ORDERED: ALBUMIN HUMAN 500 ML IV ONE ×3 (01:40→10:00)
[2019-08-06] MEDS ORDERED: VANCOMYCIN HCL 0 MG in DEXTROSE 5%-WATER 250 ML IV NR (01:45)
[2019-08-06] MEDS ORDERED: HYDROCORTISONE SOD SUCCINATE INJ/PF 100 MG/2 ML SDV IV SCH (02:00)
[2019-08-06 02:04] LABS: ABSOLUTE LYMPHOCYTES (AUTO) 0.6 10^3/uL (0.5-4.7); ABSOLUTE MONOCYTES (AUTO) 0.3 10^3/uL (0.1-1.4); ABSOLUTE NEUT (AUTO) 8.2 10^3/uL (1.7-8.2); BASOPHILS % (AUTO) 0.1 % (0-2); HEMOGLOBIN 12.2 g/dL (13.5-17.0); LYMPHOCYTES % (AUTO) 6.4 % (13-45); MEAN CORPUSCULAR HEMOGLOBIN 28.8 pg (27.0-33.4); MEAN CORPUSCULAR HGB CONC 32.1 g/dL (32.0-36.0); MEAN CORPUSCULAR VOLUME 90 fl (80-97); MONOCYTES % (AUTO) 3.3 % (3-13); PLATELET COUNT 259 10^3/uL (150-450); RED BLOOD COUNT 4.23 10^6/uL (4.35-5.55); SEGMENTED NEUTROPHILS % (AUTO) 90.2 % (42-78); TOTAL CELLS COUNTED % (AUTO) 100 %; WHITE BLOOD COUNT 9.1 10^3/uL (4.0-10.5)
[2019-08-06 02:06] LABS: INTERNATIONAL RATION (INR) 1.51; PROTHROMBIN TIME 18.3 SEC (11.4-15.4)
[2019-08-06 02:07] LABS: PARTIAL THROMBOPLASTIN TIME 59.1 SEC (23.5-35.8)
[2019-08-06 02:08] LABS: VENOUS BLOOD BASE EXCESS -10.3 mmol/L; VENOUS BLOOD HCO3 16.8 mmol/L (20-32); VENOUS BLOOD PCO2 41.8 mmHg (35-63); VENOUS BLOOD PH 7.22 (7.30-7.42)
[2019-08-06] MEDS ORDERED: VANCOMYCIN HCL INJ 1000 MG VIAL IV PRN (02:10)
[2019-08-06] MEDS ORDERED: VANCOMYCIN HCL 1,500 MG in DEXTROSE 5%-WATER 250 ML IV ONE ×2 (02:15→09:00)
[2019-08-06 02:21] LABS: ALBUMIN 2.5 g/dL (3.5-5.0); ALKALINE PHOSPHATASE 72 U/L (38-126); ASPARTATE AMINO TRANSFERASE 218 U/L (17-59); BILIRUBIN,DIRECT 0.5 mg/dL (0.0-0.4); BILIRUBIN,TOTAL 1.8 mg/dL (0.2-1.3); C-REACTIVE PROTEIN 19.7 mg/L (<10.0); TOTAL PROTEIN 4.6 g/dL (6.3-8.2)
[2019-08-06 02:29] LABS: AMYLASE < 30 U/L (30-110)
--- NOTE | 2019-08-06 02:30 | Operative Report ---
Bedside Procedure - History of Present Illness History of Present Illness: 63-year-old white male with chronic back and leg pain presents with atrial fibrillation with rapid ventricular response and acute hypoxic respiratory failure. He was seen in the ED after being sent from Dr. Islas's office. He was admitted earlier for hypotension and placed on peripheral levophed. He refused central line initially. He had been improving but developed hypotension and abdominal pain. He agreed to central line Indication for Procedure: Hypotension with sepsis Date: 08/06/19 Provider: JUAN FRANCISCO ROCHA - Central Line Right Internal jugular Time completed: 01:00 Consent obtained: Yes Central line pre-insertion: Sterile PPE donned, Chloraprep applied, Sterile drapes applied Central line size (Fr.): 7 Central line lumen type: Triple Anesthetic type: 1% Lidocaine mL's of anesthesia: 3 Ultrasound guided: Yes CM at insertion site: 15 Line secured with sutures: Yes Central line post-insertion: Blood return from lumens, Biopatch applied, Sutured, Sterile dressing applied, Position confirmed w/ CXR, Other - wire confirmed with Ultrasound. CXR pending Number of attempts: 1 Complications: No Notes: 08/06/19 02:28 EBL: 5-10 ml Patient was appropriate identified secondary to ongoing critical care chart check name terrance. Neck was prepped and draped with chlorhexidine and allowed to dry x2. Using full sterile regalia for both the patient and for this practitioner 1% lidocaine was instilled in the fascia of the area surrounding the internal jugular vein. Once sufficient anesthesia had occurred using sterile ultrasound dynamic guidance a Seldinger needle was placed into the right internal jugular vein without difficulty. Venous blood was noted. After this the needle was removed and the wire was visualized intraluminally under ultrasound. An incision was then made in the skin to facilitate placement by dilator which was done without difficulty. After the dilator was placed and removed a central venous catheter was placed up to 15 cm in the wire was removed. This was done using typical Seldinger technique. After the wire was removed venous blood was aspirated from all ports and then flushed with saline. The catheter was sutured in place using a stay lock system and the hubs were then sutured in place. Chest x-ray was pending at time of this dictation. Patient tolerated procedure well total blood loss as noted above. There were no complications. Procedure excludes critical care time.
--- NOTE | 2019-08-06 02:32 | Progress Note ---
Provider Note Provider Note: Patient developed hypotension and we were concerned that this was not given his degree of atherosclerosis. 2 attempts at femoral arterial catheter placement using sterile ultrasound were unsuccessful and that wire could not be placed across the atherosclerotic arteries. Because he had been on heparin small hematomas developed but were not of any significant sequelae. Had poor pulses in his wrist and arterial catheter was not attempted there. His degree of hematomas we elected not to place an axillary catheter. To need to monitor using noninvasive blood pressure however we are concerned that these may not be completely accurate.
[2019-08-06 02:47] LABS: ERYTHROCYTE SEDIMENTATION RATE 6 mm/hr (0-20)
[2019-08-06] MEDS ORDERED: FENTANYL CITRATE INJ/PF 100 MCG/2 ML AMPUL IV PRN ×2 (03:05→12:10)
[2019-08-06] MEDS ORDERED: RINGERS SOLUTION,LACTATED 1,000 ML IV ONE (03:12)
--- NOTE | 2019-08-06 03:33 | RADIOLOGY REPORT (SQ) ---
EXAM: CT abdomen and pelvis with IV contrast CLINICAL DATA: 63-year-old male with abdominal pain at hernia site with new inflammation, possible bleeding TECHNICAL DATA: Axial CT imaging of the abdomen and pelvis was performed following the administration of intravenous contrast.. Sagittal and coronal reconstructed images were then performed. Coronal and sagittal MIP images were also performed. The CT study is performed according to ALARA (as low as reasonably achievable) or ALARA/IMAGE GENTLY, with automatic adjustment of mA and/or kV according to patient size. Performed on: 08/06/2019 at 2:26 AM. Comparison: Prior CT abdomen and pelvis performed on 08/05/2019 at 3:38 PM FINDINGS: Lung bases: There are small bilateral pleural effusions larger on the right with associated bibasilar compressive atelectasis. The heart is mildly enlarged. There is no pericardial effusion. Liver:The liver is normal in size and configuration. No focal hepatic abnormalities are identified. Liver attenuation is within normal limits. Spleen:The spleen is normal is size, configuration and attenuation. Gallbladder and bile duct: The gallbladder is the gallbladder is partially contracted on this examination and there is new soft tissue thickening and/or high density fluid surrounding the gallbladder. There is no biliary ductal dilatation. Pancreas: The pancreas is grossly normal in size and configuration. Adrenal Glands:The adrenal glands are normal in size and configuration. Kidneys:The kidneys are normal in size and configuration. There is no evidence of hydronephrosis. There is no evidence of nephrolithiasis. No definite solid or cystic renal mass lesions are identified. Stomach:The stomach is grossly normal. There is a very small hiatal hernia. Bowel:The bowel gas pattern is non specific and non obstructive. There is colonic diverticulosis. Appendix: The appendix is not definitely visualized on this examination. Free air:There is no evidence of free air. Free fluid: There is a small amount of ascites within the abdomen, slightly increased when compared to the earlier study. There is infiltration of the mesenteric fat likely related to the presence of ascites Vasculature: Again demonstrated is a small infrarenal abdominal aortic aneurysm measuring approximately 3.4 x 2.7 cm in cross-sectional diameter. There is a chronic dissection of the infrarenal abdominal aorta. The inferior vena cava is grossly unremarkable. The common iliac arteries are normal in caliber. Lymphadenopathy: No pathologic lymphadenopathy is identified. Bladder: The bladder is decompressed due to the presence of a Munoz catheter. Reproductive: The prostate gland is grossly within normal limits. Bones: No acute osseous abnormalities are identified. There are remote postsurgical changes of the lower lumbar spine consistent with posterior decompression and fusion of L4-S1 utilizing pedicle screws. There is no evidence to suggest hardware failure. Soft tissues: There are inflammatory changes in the inguinal regions bilaterally secondary to attempted femoral artery line placement. There is subcutaneous emphysema in the left inguinal region which is iatrogenic in nature. IMPRESSION: 1. Slight interval increase in the amount of free fluid in the abdomen when compared to the prior study. 2. New changes involving the gallbladder with partial contraction of the gallbladder and increased soft tissue thickening and/or high-density fluid surrounding the gallbladder. 3. New inflammatory changes in the inguinal regions bilaterally with subcutaneous emphysema in the left inguinal region secondary to attempted femoral arterial line placement. 4. Again demonstrated is a small infrarenal abdominal aortic aneurysm measuring 3.4 cm in greatest dimension. Recommend follow-up imaging every three years. 5. Colonic diverticulosis. 6. Small bilateral pleural effusions greater on the right with associated bibasilar compressive atelectasis. These findings were discussed with Dr. White on 08/06/2019 at 2:11 AM central time
[2019-08-06 03:41] LABS: ALBUMIN 2.4 g/dL (3.5-5.0); ALKALINE PHOSPHATASE 73 U/L (38-126); ANION GAP 12 (5-19); ASPARTATE AMINO TRANSFERASE 216 U/L (17-59); BILIRUBIN,DIRECT 0.6 mg/dL (0.0-0.4); BILIRUBIN,TOTAL 1.7 mg/dL (0.2-1.3); BLOOD UREA NITROGEN 13 mg/dL (7-20); CHLORIDE 111 mmol/L (98-107); CREATINE KINASE 28 U/L (55-170); GLUCOSE 215 mg/dL (75-110); PHOSPHORUS 3.8 mg/dL (2.5-4.5); POTASSIUM 3.7 mmol/L (3.6-5.0); TOTAL PROTEIN 4.6 g/dL (6.3-8.2)
[2019-08-06 03:43] LABS: CALCIUM 6.2 mg/dL (8.4-10.2)
[2019-08-06 03:50] LABS: CARBON DIOXIDE 15 mmol/L (22-30)
[2019-08-06 03:54] LABS: CREATINE KINASE MB 1.6 ng/mL (<4.55); TROPONIN I 0.037 ng/mL
[2019-08-06] MEDS: FENTANYL CITRATE INJ/PF 100 MCG/2 ML AMPUL IV PRN ×2 (04:21→09:15)
[2019-08-06] MEDS: PIPERACILLIN SODIUM/TAZOBACTAM 3.375 GM in NORMAL SALINE 100 ML IV SCH ×2 (05:34→08:48)
[2019-08-06] MEDS ORDERED: FOLIC ACID 1 MG in NORMAL SALINE 50 ML IV SCH (08:00)
--- NOTE | 2019-08-06 08:47 | RADIOLOGY REPORT (SQ) ---
EXAM DESCRIPTION: CHEST SINGLE VIEW COMPLETED DATE/TIME: 08/06/2019 7:14 am REASON FOR STUDY: respiratory failure COMPARISON: 08/05/2019 FINDINGS: Single view AP chest portable upright. Right IJ line to the superior vena cava. No pneumothorax. Stable cardiomediastinal silhouette. Slight central vascular congestion has developed compared to pr ior. TECHNICAL DOCUMENTATION: JOB ID: [id number] Reading location - IP/workstation name: [email or web address]
[2019-08-06] MEDS: MAGNESIUM SULFATE/D5W 1 GM/100 ML RTUPB IV SCH ×3 (08:51→11:39)
--- NOTE | 2019-08-06 09:00 | RADIOLOGY REPORT (SQ) ---
EXAM DESCRIPTION: U/S ABDOMEN COMPLETE W/O DOP COMPLETED DATE/TIME: 08/06/2019 5:45 am REASON FOR STUDY: acute cholecystitis COMPARISON: CT of the abdomen and pelvis with contrast from 08/06/2019. TECHNIQUE: Dynamic and static grayscale images acquired of the abdomen and recorded on PACS. Additio nal selected color Doppler and spectral images recorded. Note: Study does not meet criteria for complete doppler/duplex scan LIMITATIONS: Limited sonographic evaluation of the abdomen due to patient's inability to hold respir ation, bowel gas, and body habitus. FINDINGS: PANCREAS: Unable to visualize the pancreas. LIVER: Increased echotexture of the hepatic parenchyma. LIVER VASCULATURE: Normal directional flow of the main portal vein and hepatic veins. GALLBLADDER: The gallbladder is contracted and its wall is thickened measuring up to 19 mm in thickne ss. ULTRASOUND-DETECTED BERMUDEZ'S SIGN: Negative. INTRAHEPATIC DUCTS AND COMMON DUCT: The common bile duct measures 3.5 mm in diameter. INFERIOR VENA CAVA: Normal flow. AORTA: The proximal abdominal aorta measures 2.3 cm in AP diameter. Visualization of the mid and dis grant abdominal aorta is limited. RIGHT KIDNEY: The right kidney measures 10 cm in length. There is no hydronephrosis. LEFT KIDNEY: The left kidney measures 10.1 cm in length. There is no hydronephrosis. SPLEEN: The spleen measures 9.5 cm in length. PERITONEAL AND PLEURAL SPACES: There is a trace amount of free fluid in the perihepatic space and the re is a right pleural effusion. OTHER: None/ IMPRESSION: 1. Contracted gallbladder with a thickened wall as on the correlative CT. The sonograph ic Bermudez sign is negative and there is no dilatation of the CBD. 2. Ascites and right pleural effusion. 3. Increased echotexture of the hepatic parenchyma indicative of diffuse hepatocellular disease. 4. Limited visualization of the pancreas, hepatic vasculature, and aorta. TECHNICAL DOCUMENTATION: JOB ID: [id number] [employer]- All Rights Reserved Reading location - IP/workstation name: [email or web address]
[2019-08-06 09:24] LABS: ARTERIAL BLOOD FIO2 40%; ARTERIAL BLOOD HCO3 9.2 mmol/L (20-24); ARTERIAL BLOOD O2 SATURATION 97.8 % (94-98); ARTERIAL BLOOD PCO2 26.7 mmHg (35-45); ARTERIAL BLOOD PO2 129.3 mmHg (80-100)
[2019-08-06 09:26] LABS: ARTERIAL BLOOD PH 7.16 (7.35-7.45)
[2019-08-06 09:50] LABS: ARTERIAL BLOOD BASE EXCESS -16.5 mmol/L; ARTERIAL BLOOD H2CO3 1.25 mmol/L (1.05-1.35); ARTERIAL BLOOD HCO3 12.6 mmol/L (20-24); ARTERIAL BLOOD O2 SATURATION 39.6 % (94-98); ARTERIAL BLOOD PCO2 41.6 mmHg (35-45); ARTERIAL BLOOD TOTAL CO2 13.8 mmol/L (23-27)
[2019-08-06 09:52] LABS: ARTERIAL BLOOD FIO2 40%; ARTERIAL BLOOD PO2 30.3 mmHg (80-100)
[2019-08-06] MEDS ORDERED: SODIUM BICARBONATE 8.4% INJ 50 MEQ/50 ML DISP.SYRIN IV ONE (10:00)
[2019-08-06] MEDS ORDERED: MIDODRINE HCL 5 MG TABLET PO SCH (10:00)
[2019-08-06] MEDS ORDERED: DEXTROSE 5%-WATER 250 ML with NOREPINEPHRINE BITARTRATE 4 MG IV PRN ×2 (10:09)
[2019-08-06] MEDS ORDERED: MILRINONE LACTATE/D5W 20 MG/100 ML RTUINJ IV PRN ×2 (10:37→11:20)
[2019-08-06] MEDS ORDERED: SUCCINYLCHOLINE CHLORIDE INJ 200 MG/10 ML VIAL IV ONE (10:45)
[2019-08-06] MEDS ORDERED: ETOMIDATE INJ/PF 20 MG/10 ML SDV IV ONE ×4 (10:49→13:00)
[2019-08-06] MEDS ORDERED: DEXMEDETOMIDINE IN 0.9 % NACL 400 MCG/100 ML RTUPB IV ONE (11:01)
[2019-08-06] MEDS ORDERED: MIDAZOLAM 2 MG/2 ML INJ ONE (11:07)
[2019-08-06] MEDS ORDERED: DEXMEDETOMIDINE IN 0.9 % NACL 400 MCG/100 ML RTUPB IV PRN (11:21)
--- NOTE | 2019-08-06 11:36 | Operative Report ---
Bedside Procedure - History of Present Illness History of Present Illness: 63-year-old white male with chronic back and leg pain presents with atrial fibrillation with rapid ventricular response and acute hypoxic respiratory failure. He was seen in the ED after being sent from Dr. Islas's office. He had elevated lactic acid without worsening respiratory failure. Bedside critical care US shows markedly depressed EF. He is on BiPap without respiratory acidosis but worsening respiratory acidosis. He has developed cardiogenic shock necessitating intubation, mechanical ventilation and transfer to tertiary care center. PROCEDURE Procedure: Intubation Pre-op Diagnosis: Respiratory and cardiac failure, re-assuring airway Post-operative diagnosis: same, grade 4 view Proceduralist: DO Cindy [facility] Complications: None. EBL: None Patient was appropriate identified secondary to ongoing critical care, chart check, name bracelet. Appropriate adjunctive equipment was available including glide scope, bougie intubating stylette, and multiple sizes of LMA's. Preoxygenated with 100% and maintained on BiPAP. Given a sedating analgesic dose of fentanyl followed by rapid sequence intubation with etomidate 25 mg and succinylcholine 100 mg. To the intubation evaluation of his airway showed a good oral aperture of greater than 3 fingerbreadths thumb into distance greater than 3 cm in good rotation and flexion of the neck. Review on direct laryngoscopy with a MAC 4 blade was a grade 4 view. He was successfully intubated with a #8 ET tube using direct laryngoscopy. Immediate auscultation showed no sounds in the stomach and left and right sounds were clear. OG tube was placed using the laryngoscope as well. Procedure excludes critical care time Indication for Procedure: Cardiogenic shock Date: 08/06/19 Provider: JUAN FRANCISCO ROCHA
--- NOTE | 2019-08-06 11:50 | PDOC PROGRESS REPORT ---
Subjective Progress Note for:: 08/06/19 Subjective:: Patient became tachycardic and developed abdominal discomfort with a decrease in his blood pressure. He had initially had a improvement in his overall status. His lactic acid had improved somewhat. He was not having abdominal pain earlier in the evening. His pain is described as pruritic ("burning itch") type pain and in " S" fashion on his left abdomen. He has no nausea. He does have back pain chronically is slightly worse. He had been started on heparin because of his atrial fibrillation. To above his blood pressure dropped while on levo fed up. Stat hemoglobin hematocrit were ordered. Patient had refused a central line but given the urgency of his situation he finally acquiesced and we are able to place a central line to help resuscitate. Had a low urine output as well. He was given stat dose of fentanyl and by the time the central line was placed his abdominal pain had improved. He was also started on vasopressin with an improvement in his blood pressure. He was given more albumin and fluids. CT of the abdomen and pelvis was ordered with contrast because of the concern for bleeding while on heparin. Attempts at placing arterial catheters for more accurate blood pressure were thwarted by the inability to pass a wire into very narrow femoral arteries bilaterally. Had poor axillary and radial arteries. Concern for further trauma and distal ischemia was a concern the procedure was aborted. Repeat CT scan done for concern for acute blood loss. No bleeding noted. Only change from previous was pericholcystic fluid which had higher hounsfield units. H/H remained unremarkable without acute anemia. Repeat lactic acid and base-deficit had increased. His abdomen was benign. On later examination his lactic acid had increased his abdomen remained pain- free. It was not distended. A bedside critical care ultrasound was done which revealed an ejection fraction of approximately 10%. There was dilation without hypertrophy. Both the RV and LV appear to be affected. He will have difficulty getting consistent blood pressures and he was started on vasopressin therapy. Mixed venous gas showed oxygen saturation of only 39% and milrinone was started. This patient meets criteria for cardiogenic shock. Given the minimal changes in his troponin this may be related to sepsis. His skin is cool and he has low urine output. Milrinone has been started in hopes to improve his situation. Was concerned about the gallbladder however the cardiogenic shock takes predominance. We are awaiting ultrasound of the abdomen. Reason For Visit: ACUTE RESPIRATORY FAILURE Physical Exam Vital Signs: Temp Pulse Resp BP Pulse Ox 97.3 F 123 H 31 H 109/70 100 08/05/19 19:06 08/06/19 00:09 08/06/19 00:09 08/05/19 19:06 08/06/19 00:09 Intake & Output 08/04/19 08/05/19 08/06/19 06:59 06:59 06:59 Intake Total 3893.2 Output Total 125 Balance 3768.2 Weight 84.7 kg Physical Exam: Ill but nontoxic 63-year-old male moderate distress abdominal pain. General appearance: PRESENT: mild distress, obese Eye exam: PRESENT: conjunctiva pink, EOMI, PERRLA. ABSENT: conjunctival injection, nystagmus, scleral icterus Mouth exam: PRESENT: dry mucosa, neck supple, tongue midline Teeth exam: PRESENT: poor dentation Neck exam: ABSENT: carotid bruit, JVD, lymphadenopathy, thyromegaly, tracheal deviation Respiratory exam: PRESENT: crackles, tachypnea. ABSENT: accessory muscle use, unlabored, wheezes Cardiovascular exam: PRESENT: irregular rhythm, +S1, +S2, tachycardia. ABSENT: rubs, systolic murmur Additional comments: Psych critical care ultrasound shows ejection fraction approaching 10% dilated ventricles. Both LV and RV show significant reduction in function. Pulses: PRESENT: other - Poor femoral pulse on ultrasound. ABSENT: normal dorsa lis pedis pul Vascular exam: PRESENT: normal capillary refill, pallor - Pallor present of tongue. GI/Abdominal exam: PRESENT: diminished bowel sounds, distended - Minimal distension., hypoactive bowel sounds, soft, tenderness - tenderness is improved. Negative Bermudez's.. ABSENT: ascites, firm, guarding, mass, Bermudez's sign, organolmegaly, rebound, rigid Rectal exam: PRESENT: deferred Gentrourinary exam: PRESENT: indwelling catheter Extremities exam: ABSENT: joint swelling, pedal edema Musculoskeletal exam: ABSENT: deformity, dislocation Neurological exam: PRESENT: awake, oriented to person, oriented to place, oriented to time, oriented to situation, CN II-XII grossly intact. ABSENT: motor sensory deficit, aphasic Psychiatric exam: PRESENT: agitated Focused psych exam: PRESENT: restlessness Skin exam: PRESENT: dry, intact, normal color. ABSENT: abrasion, cyanosis, erythema, jaundice, mottled, pallor, petechiae, urticaria, vesicles Results Laboratory Results: 08/06/19 01:35 08/05/19 11:38 08/05/19 08/05/19 08/05/19 11:38 11:38 11:38 WBC 8.4 RBC 5.44 Hgb 15.9 Hct 48.3 MCV 89 MCH 29.1 MCHC 32.9 RDW 18.1 H Plt Count 349 Seg Neutrophils % 68.6 Carbonic Acid HCO3/H2CO3 Ratio ABG pH ABG pCO2 ABG pO2 ABG HCO3 ABG O2 Saturation ABG Base Excess VBG pH VBG pCO2 VBG HCO3 VBG Base Excess FiO2 Sodium 139.5 Potassium 3.8 Chloride 100 Carbon Dioxide 25 Anion Gap 15 BUN 18 Creatinine 1.08 Est GFR ( Amer) > 60 Glucose 117 H Lactic Acid Calcium 9.7 Phosphorus Magnesium Total Bilirubin 2.1 H AST 47 Alkaline Phosphatase 141 H Ammonia Total Protein 8.6 H Albumin 4.8 Triglycerides Amylase Lipase TSH 3.20 Urine Color Urine Appearance Urine pH Ur Specific Carmichaels Urine Protein Urine Glucose (UA) Urine Ketones Urine Blood Urine Nitrite Ur Leukocyte Esterase 08/05/19 08/05/19 08/05/19 15:00 15:00 15:00 WBC 8.9 RBC 4.65 Hgb 13.6 D Hct 41.8 MCV 90 MCH 29.1 MCHC 32.5 RDW 18.4 H Plt Count 307 Seg Neutrophils % 61.0 Carbonic Acid HCO3/H2CO3 Ratio ABG pH ABG pCO2 ABG pO2 ABG HCO3 ABG O2 Saturation ABG Base Excess VBG pH VBG pCO2 VBG HCO3 VBG Base Excess FiO2 Sodium Potassium Chloride Carbon Dioxide Anion Gap BUN Creatinine Est GFR ( Amer) Glucose Lactic Acid 4.2 H Calcium Phosphorus Magnesium Total Bilirubin AST Alkaline Phosphatase Ammonia Total Protein Albumin Triglycerides Amylase Lipase TSH Urine Color YELLOW Urine Appearance TURBID Urine pH 5.0 Ur Specific Carmichaels 1.029 Urine Protein 100 H Urine Glucose (UA) NEGATIVE Urine Ketones TRACE H Urine Blood SMALL H Urine Nitrite NEGATIVE Ur Leukocyte Esterase NEGATIVE 08/05/19 08/05/19 08/05/19 17:10 17:42 18:33 WBC RBC Hgb Hct MCV MCH MCHC RDW Plt Count Seg Neutrophils % Carbonic Acid 1.21 HCO3/H2CO3 Ratio 14:1 ABG pH 7.26 L ABG pCO2 40.2 ABG pO2 209.6 H ABG HCO3 17.7 L ABG O2 Saturation 99.3 H ABG Base Excess -8.8 VBG pH Cancelled VBG pCO2 Cancelled VBG HCO3 Cancelled VBG Base Excess Cancelled FiO2 100% Sodium Potassium Chloride Carbon Dioxide Anion Gap BUN Creatinine Est GFR ( Amer) Glucose Lactic Acid 4.3 H Calcium Phosphorus Magnesium Total Bilirubin AST Alkaline Phosphatase Ammonia Total Protein Albumin Triglycerides Amylase Lipase TSH Urine Color Urine Appearance Urine pH Ur Specific Carmichaels Urine Protein Urine Glucose (UA) Urine Ketones Urine Blood Urine Nitrite Ur Leukocyte Esterase 08/05/19 08/05/19 08/05/19 18:33 18:33 23:13 WBC RBC Hgb Hct MCV MCH MCHC RDW Plt Count Seg Neutrophils % Carbonic Acid HCO3/H2CO3 Ratio ABG pH ABG pCO2 ABG pO2 ABG HCO3 ABG O2 Saturation ABG Base Excess VBG pH VBG pCO2 VBG HCO3 VBG Base Excess FiO2 Sodium Potassium Chloride Carbon Dioxide Anion Gap BUN Creatinine Est GFR ( Amer) Glucose Lactic Acid 3.8 H Calcium Phosphorus 5.0 H Magnesium 2.0 Total Bilirubin AST Alkaline Phosphatase Ammonia < 8.7 L Total Protein Albumin Triglycerides 91 Amylase 32 Lipase 70.4 TSH Urine Color Urine Appearance Urine pH Ur Specific Carmichaels Urine Protein Urine Glucose (UA) Urine Ketones Urine Blood Urine Nitrite Ur Leukocyte Esterase 08/06/19 08/06/19 01:35 01:45 WBC 9.1 RBC 4.23 L Hgb 12.2 L Hct 38.0 MCV 90 MCH 28.8 MCHC 32.1 RDW 18.0 H Plt Count 259 Seg Neutrophils % 90.2 H Carbonic Acid HCO3/H2CO3 Ratio ABG pH ABG pCO2 ABG pO2 ABG HCO3 ABG O2 Saturation ABG Base Excess VBG pH 7.22 L VBG pCO2 41.8 VBG HCO3 16.8 L VBG Base Excess -10.3 FiO2 Sodium Potassium Chloride Carbon Dioxide Anion Gap BUN Creatinine Est GFR ( Amer) Glucose Lactic Acid Calcium Phosphorus Magnesium Total Bilirubin AST Alkaline Phosphatase Ammonia Total Protein Albumin Triglycerides Amylase Lipase TSH Urine Color Urine Appearance Urine pH Ur Specific Carmichaels Urine Protein Urine Glucose (UA) Urine Ketones Urine Blood Urine Nitrite Ur Leukocyte Esterase 08/05/19 08/05/19 08/05/19 11:38 11:38 15:00 Creatine Kinase Cancelled CK-MB (CK-2) 2.69 Troponin I 0.030 0.026 NT-Pro-B Natriuret Pep 08/05/19 08/05/19 08/05/19 18:33 18:33 18:33 Creatine Kinase 52 L Cancelled CK-MB (CK-2) 1.69 Troponin I 0.027 NT-Pro-B Natriuret Pep 3620 H 08/05/19 08/05/19 23:13 23:13 Creatine Kinase 41 L CK-MB (CK-2) 1.64 Troponin I 0.032 NT-Pro-B Natriuret Pep Impressions: Chest X-Ray 08/05/19 11:55 IMPRESSION: Cardiomegaly without a superimposed acute cardiopulmonary process. Chest/Abdomen CTA 08/05/19 14:59 IMPRESSION: Moderate right-sided pleural effusion with right lower lobe atelectasis or pneumonia. Small left pleural effusion. No pulmonary emboli. Reflux into the intrahepatic IVC and hepatic veins suggestive of right-sided heart failure. Abdomen/Pelvis CT 08/05/19 15:00 IMPRESSION: 1. Cannot exclude mild pancreatitis. Correlate clinically. 2. 34 mm aneurysm of the infrarenal abdominal aorta. 3. Diverticulosis coli. Assessment & Plan - Diagnosis (1) Cardiogenic shock Is this a current diagnosis for this admission?: Yes (2) Sepsis with hypotension Is this a current diagnosis for this admission?: Yes (3) Lactic acidosis Is this a current diagnosis for this admission?: Yes (4) Acute respiratory failure with hypoxia Is this a current diagnosis for this admission?: Yes (5) Atrial fibrillation with rapid ventricular response Is this a current diagnosis for this admission?: Yes (6) Hypotension (arterial) Qualifiers: Hypotension type: hypotension due to hypovolemia Qualified Code(s): I95.89 - Other hypotension; E86.1 - Hypovolemia Is this a current diagnosis for this admission?: Yes (7) Ventral hernia Qualifiers: Obstruction and gangrene presence: without obstruction or gangrene Qualified Code(s): K43.9 - Ventral hernia without obstruction or gangrene Is this a current diagnosis for this admission?: Yes (8) Chronic pain Qualifiers: Chronic pain type: chronic pain syndrome Qualified Code(s): G89.4 - Chronic pain syndrome Is this a current diagnosis for this admission?: Yes (9) Atherosclerosis Is this a current diagnosis for this admission?: Yes (10) Atherosclerosis of abdominal aorta Is this a current diagnosis for this admission?: Yes (11) PVD (peripheral vascular disease) Is this a current diagnosis for this admission?: Yes (12) Acute abdominal pain in left upper quadrant Is this a current diagnosis for this admission?: Yes (13) Abdominal aortic aneurysm Qualifiers: Presence of rupture: without rupture Qualified Code(s): I71.4 - Abdominal aortic aneurysm, without rupture Is this a current diagnosis for this admission?: Yes (14) Tobacco abuse disorder Is this a current diagnosis for this admission?: Yes (15) ETOH abuse Is this a current diagnosis for this admission?: Yes - Time Time Spent with patient: 35 or more minutes Total Critical Time (Minutes): 210 Level of Care: ICU Medications reviewed and adjusted accordingly: Yes Anticipated discharge: [facility] ICU. Dr. Kramer - Inpatient Certification Based on my medical assessment, after consideration of the patient's comorbidities, presenting symptoms, or acuity I expect that the services needed warrant INPATIENT care.: Yes I certify that my determination is in accordance with my understanding of Medicare's requirements for reasonable and necessary INPATIENT services [42 CFR 412.3e].: Yes Medical Necessity: Significant Comorbidiites Make Outpatient Treatment Too Risky, Need Close Monitoring Due to Risk of Patient Decompensation, Need For IV Fluids, Need For Continuous Telemetry Monitoring, Need for Pain Control, Need for IV Antibiotics, Risk of Complication if Not Cared For in Hospital, Risk of Diagnosis Which Will Require Inpatient Eval/Care/Monitoring - Plan Summary Plan Summary: Patient has profound cardiogenic shock and this is been confirmed by an official echocardiography. To be related to sepsis but given the profound biventricular aspect he may be a candidate and in need of mechanical cardiac assist device. Patient's acidosis necessitates maintaining control of an adequate airway and respiratory response. Patient had been refusing intubation but has agreed to this in discussion of his condition. I had a long lengthy discussion with his who is understanding and agrees. We currently do not have capability for ventricular assist devices at this institution and so a call was placed to [facility] who is gladly accepted the patient for transfer to their ICU. I have started milrinone to improve his cardiac function. He was intubated without difficulty but had a grade 4 airway. Chest x-ray shows ET tube above mica and OG tube in appropriate position. Both were placed by this author. See diagnoses above.
--- NOTE | 2019-08-06 11:57 | PDOC TRANSFER SUMMARY ---
General Admission Date/PCP: 08/05/19 17:10 DAREN BENITO PA-C Resuscitation Status: Full Code - Transfer Diagnosis (1) Cardiogenic shock Is this a current diagnosis for this admission?: Yes (2) Sepsis with hypotension Is this a current diagnosis for this admission?: Yes (3) Lactic acidosis Is this a current diagnosis for this admission?: Yes (4) Acute respiratory failure with hypoxia Is this a current diagnosis for this admission?: Yes (5) Atrial fibrillation with rapid ventricular response Is this a current diagnosis for this admission?: Yes (6) Hypotension (arterial) Is this a current diagnosis for this admission?: Yes (7) Ventral hernia Is this a current diagnosis for this admission?: Yes (8) Chronic pain Is this a current diagnosis for this admission?: Yes (9) Atherosclerosis Is this a current diagnosis for this admission?: Yes (10) Atherosclerosis of abdominal aorta Is this a current diagnosis for this admission?: Yes (11) PVD (peripheral vascular disease) Is this a current diagnosis for this admission?: Yes (12) Acute abdominal pain in left upper quadrant Is this a current diagnosis for this admission?: Yes (13) Abdominal aortic aneurysm Is this a current diagnosis for this admission?: Yes (14) Tobacco abuse disorder Is this a current diagnosis for this admission?: Yes (15) ETOH abuse Is this a current diagnosis for this admission?: Yes - Transfer Medications Home Medications: Alprazolam [Xanax] 1 mg PO BIDP PRN 08/05/19 Transfer Medications: Current Medications Albuterol/Ipratropium (Duoneb 3 Ml Ampul) 3 ml NEB RTQ4 MARY ANN Stop: 09/04/19 19:59 Last Admin: 08/06/19 08:02 Dose: 3 ml Documented by: Alprazolam (Xanax 0.5 Mg Tablet) 0.5 mg PO Q8HP PRN PRN Reason: ANXIETY Stop: 08/12/19 19:32 Last Admin: 08/05/19 21:31 Dose: 0.5 mg Documented by: Etomidate (Amidate Inj/Pf 20 Mg/10 Ml Sdv) 24 mg IV NOW ONE Stop: 08/06/19 12:01 Famotidine (Pepcid Inj/Pf 20 Mg/2 Ml Sdv) 20 mg IV Q12 MARY ANN Stop: 09/05/19 11:59 Fentanyl Citrate (Sublimaze Inj/Pf 100 Mcg/2 Ml Ampule) 50 mcg IV Q4HP PRN PRN Reason: FOR PAIN SCALE 1-3 Stop: 08/13/19 03:04 Last Admin: 08/06/19 09:15 Dose: 50 mcg Documented by: Fentanyl Citrate (Sublimaze Inj/Pf 100 Mcg/2 Ml Ampule) 100 mcg IV Q4HP PRN PRN Reason: FOR PAIN SCALE 4-5 Stop: 08/13/19 03:04 Fentanyl Citrate (Sublimaze Inj/Pf 100 Mcg/2 Ml Ampule) 100 mcg IV NOW ONE Stop: 08/06/19 12:01 Gabapentin (Neurontin 100 Mg Capsule) 100 mg PO Q8 [facility] Stop: 09/04/19 20:59 Last Admin: 08/05/19 21:32 Dose: 100 mg Documented by: Heparin Sodium (Porcine) (Heparin Inj 1,000 Unit/Ml 10 Ml Vial) 0 - 12,000 unit IV .BOLUS PER PROTOCOL PRN; Protocol PRN Reason: RESPOND TO aPTT VALUE Stop: 09/04/19 20:35 Hydrocortisone Sodium Succinate (Solu-Cortef Inj/Pf 100 Mg/ 2 Ml Sdv) 100 mg IV Q8A [facility] Stop: 09/05/19 01:59 Last Admin: 08/06/19 04:21 Dose: 100 mg Documented by: Lactated Ringer's (Lactated Ringers 1000 Ml Iv Soln) 1,000 mls @ 150 mls/hr IV CONTINUOUS PRN PRN Reason: THIS MED IS NOT "PRN" Stop: 09/04/19 17:19 Last Admin: 08/05/19 21:27 Dose: 150 mls/hr Documented by: Heparin Sodium/Dextrose (Heparin Rtu 25,000 Unit/250 Ml D5w Premix) 25,000 unit in 250 mls @ 0 mls/hr IV CONTINUOUS PRN; Protocol PRN Reason: THIS MED IS NOT "PRN" Stop: 09/04/19 17:33 Last Admin: 08/05/19 18:41 Dose: 9.6 mls/hr, 9.6 mls/hr Documented by: Thiamine HCl 500 mg/ Folic (Acid 1 mg/ Sodium Chloride) 255.2 mls @ 510.4 mls/hr IV QPM [facility] Stop: 08/07/19 18:29 Last Infusion: 08/05/19 22:45 Dose: Infused Documented by: Thiamine HCl 250 mg/ Folic (Acid 1 mg/ Sodium Chloride) 52.7 mls @ 102.385 mls/hr IV QPM [facility] Stop: 09/07/19 17:59 Folic Acid 1 mg/ Sodium (Chloride) 50.2 mls @ 100.4 mls/hr IV QAM [facility] Stop: 09/05/19 07:59 Last Infusion: 08/06/19 10:21 Dose: Infused Documented by: Piperacillin Sod/Tazobactam (Sod 3.375 gm/ Sodium Chloride) 100 mls @ 200 mls/hr IV Q6A [facility] Stop: 08/12/19 20:59 Last Infusion: 08/06/19 10:15 Dose: Infused Documented by: Azithromycin 500 mg/ Dextrose 250 mls @ 250 mls/hr IV QPM [facility] Stop: 08/12/19 19:59 Last Infusion: 08/06/19 00:00 Dose: 0 ml/hr, 0 mls/hr Documented by: Vasopressin 100 unit/ Dextrose 250 mls @ 0 mls/hr IV CONTINUOUS PRN; Protocol PRN Reason: THIS MED IS NOT "PRN" Stop: 09/05/19 00:55 Last Titration: 08/06/19 04:32 Dose: 4.5 mls/hr Documented by: Vancomycin HCl 1,250 mg/ (Dextrose) 250 mls @ 166.667 mls/hr IV Q12A [facility] Stop: 08/13/19 17:59 Albumin Human (Albutein 5% Inj 25 Gm/500 Ml Premixed Bottle) 500 mls @ 4 mls/min IV NOW ONE Stop: 08/06/19 12:04 Norepinephrine Bitartrate 4 mg (/ Dextrose) 250 mls @ 0 mls/hr IV CONTINUOUS PRN; Protocol PRN Reason: THIS MED IS NOT "PRN" Stop: 09/05/19 10:08 Milrinone Lactate/Dextrose (Primacor Rtu 20 Mg-D5w 100 Ml Premix Bag) 20 mg in 100 mls @ 0 mls/hr IV CONTINUOUS PRN; Protocol PRN Reason: THIS MED IS NOT "PRN" Stop: 09/05/19 10:36 Milrinone Lactate/Dextrose (Primacor Rtu 20 Mg-D5w 100 Ml Premix Bag) 20 mg in 100 mls @ 0 mls/hr IV CONTINUOUS PRN; Protocol PRN Reason: THIS MED IS NOT "PRN" Stop: 09/05/19 11:19 Dexmedetomidine/Sodium Chloride (Precedex 400 Mcg/Ns 100 Ml Iv Premix) 400 mcg in 100 mls @ 0 mls/hr IV CONTINUOUS PRN; Protocol PRN Reason: THIS MED IS NOT "PRN" Stop: 09/05/19 11:20 Midodrine (Proamatine 5 Mg Tablet) 5 mg PO TID MARY ANN Stop: 09/05/19 09:59 Multi-Ingredient Cream (Lacri-Lube S.O.P. Ointment 3.5 Gm) 1 applic OU Q8 MARY ANN Stop: 09/05/19 12:29 Sodium Chloride (Saline Flush 2.5 Ml Monoject Prefil Syrin) 2.5 ml IV Q8 MARY ANN Stop: 09/04/19 21:59 Last Admin: 08/06/19 10:22 Dose: Not Given Documented by: Sodium Chloride (Saline Flush 2.5 Ml Monoject Prefil Syrin) 2.5 ml IV Q8 MARY ANN Stop: 09/05/19 13:59 Succinylcholine Chloride (Anectine Inj 200 Mg/10 Ml Vial) 100 mg IV NOW ONE Stop: 08/06/19 10:46 - Allergies Allergies/Adverse Reactions: No Known Allergies Allergy (Verified 05/02/19 08:29) - Diet/Activity Discharge Diet: Other (Comments) - NPO Discharge Activity: Other - Intubated. HOB >30 Hospital Course Hospital Course: Patient was admitted for presumed sepsis 08/05/2019. He presented with atrial fibrillation and a rapid ventricular response. Was concern for aspiration pneumonitis or viral pneumonitis given the dramatic respiratory distress. He did not want intubation but would agree to with it only if his life was compromised. After admission his lactic acid appeared to have improved however he became more hypotensive in the middle of the night. He finally agreed to a central line and vasopressors were able to be transitioned to a central access point. Still was reluctant for any aggressive care however after discussion of his condition he agreed to a full complement of care. A repeat CAT scan was done of his abdomen given the elevation his lactic acid and his mild abdominal discomfort. There was no clear source for this other than a possible fluid around the gallbladder. He was placed on broad-spectrum antibiotics prior to this. He was also started on vancomycin and concern for possible bacteremia. He had had back pain and the concern for an osteo-related infection concern. CT scan did not show any significant changes. On 08/06/2019 patient's lactic acid worsened as well as his pH. Outside critical care echo was done which showed an ejection fraction which approached 10%. Both RV and LV were dilated. IVC was filled and fixed. Remarkably his chest x-ray did not show any significant interstitial changes however he was still dependent on BiPAP. He appears to have developed sepsis induced cardiomyopathy however an underlying coronary disease given his extensive atherosclerosis could not be ruled out. Her EKG showed T wave inversion and cardiology felt that this was related to his atrial fibrillation. His heparin had been stopped and concern for increased amount of fluid around the gallbladder and an increase in Hounsfield units. It had been reordered this morning with an unchanged hemoglobin hematocrit. When his dramatic loss of LV and RV function and lack of mechanical support syst ems here the patient has been accepted to [facility] care. Physical Exam Vital Signs: Temp Pulse Resp BP Pulse Ox 97.7 F 94 30 H 81/52 L 85 L 08/06/19 10:17 08/06/19 10:00 08/06/19 10:17 08/06/19 10:17 08/06/19 10:01 Intake & Output 08/05/19 08/06/19 08/07/19 06:59 06:59 06:59 Intake Total 4219.2 350.2 Output Total 160 20 Balance 4059.2 330.2 Weight 84.7 kg Exam: Please see progress note from today. Results Laboratory Results: 08/06/19 01:45 08/06/19 01:45 08/05/19 08/05/19 08/05/19 11:38 11:38 11:38 WBC 8.4 RBC 5.44 Hgb 15.9 Hct 48.3 MCV 89 MCH 29.1 MCHC 32.9 RDW 18.1 H Plt Count 349 Seg Neutrophils % 68.6 Carbonic Acid HCO3/H2CO3 Ratio ABG pH ABG pCO2 ABG pO2 ABG HCO3 ABG O2 Saturation ABG Base Excess VBG pH VBG pCO2 VBG HCO3 VBG Base Excess FiO2 Sodium 139.5 Potassium 3.8 Chloride 100 Carbon Dioxide 25 Anion Gap 15 BUN 18 Creatinine 1.08 Est GFR ( Amer) > 60 Glucose 117 H Lactic Acid Calcium 9.7 Phosphorus Magnesium Total Bilirubin 2.1 H AST 47 Alkaline Phosphatase 141 H Ammonia C-Reactive Protein Total Protein 8.6 H Albumin 4.8 Triglycerides Amylase Lipase TSH 3.20 Urine Color Urine Appearance Urine pH Ur Specific [place] Urine Protein Urine Glucose (UA) Urine Ketones Urine Blood Urine Nitrite Ur Leukocyte Esterase Blood Type Antibody Screen 08/05/19 08/05/19 08/05/19 15:00 15:00 15:00 WBC 8.9 RBC 4.65 Hgb 13.6 D Hct 41.8 MCV 90 MCH 29.1 MCHC 32.5 RDW 18.4 H Plt Count 307 Seg Neutrophils % 61.0 Carbonic Acid HCO3/H2CO3 Ratio ABG pH ABG pCO2 ABG pO2 ABG HCO3 ABG O2 Saturation ABG Base Excess VBG pH VBG pCO2 VBG HCO3 VBG Base Excess FiO2 Sodium Potassium Chloride Carbon Dioxide Anion Gap BUN Creatinine Est GFR ( Amer) Glucose Lactic Acid 4.2 H Calcium Phosphorus Magnesium Total Bilirubin AST Alkaline Phosphatase Ammonia C-Reactive Protein Total Protein Albumin Triglycerides Amylase Lipase TSH Urine Color YELLOW Urine Appearance TURBID Urine pH 5.0 Ur Specific [place] 1.029 Urine Protein 100 H Urine Glucose (UA) NEGATIVE Urine Ketones TRACE H Urine Blood SMALL H Urine Nitrite NEGATIVE Ur Leukocyte Esterase NEGATIVE Blood Type Antibody Screen 08/05/19 08/05/19 08/05/19 17:10 17:42 18:33 WBC RBC Hgb Hct MCV MCH MCHC RDW Plt Count Seg Neutrophils % Carbonic Acid 1.21 HCO3/H2CO3 Ratio 14:1 ABG pH 7.26 L ABG pCO2 40.2 ABG pO2 209.6 H ABG HCO3 17.7 L ABG O2 Saturation 99.3 H ABG Base Excess -8.8 VBG pH Cancelled VBG pCO2 Cancelled VBG HCO3 Cancelled VBG Base Excess Cancelled FiO2 100% Sodium Potassium Chloride Carbon Dioxide Anion Gap BUN Creatinine Est GFR ( Amer) Glucose Lactic Acid 4.3 H Calcium Phosphorus Magnesium Total Bilirubin AST Alkaline Phosphatase Ammonia C-Reactive Protein Total Protein Albumin Triglycerides Amylase Lipase TSH Urine Color Urine Appearance Urine pH Ur Specific [place] Urine Protein Urine Glucose (UA) Urine Ketones Urine Blood Urine Nitrite Ur Leukocyte Esterase Blood Type Antibody Screen 08/05/19 08/05/19 08/05/19 18:33 18:33 23:13 WBC RBC Hgb Hct MCV MCH MCHC RDW Plt Count Seg Neutrophils % Carbonic Acid HCO3/H2CO3 Ratio ABG pH ABG pCO2 ABG pO2 ABG HCO3 ABG O2 Saturation ABG Base Excess VBG pH VBG pCO2 VBG HCO3 VBG Base Excess FiO2 Sodium Potassium Chloride Carbon Dioxide Anion Gap BUN Creatinine Est GFR ( Amer) Glucose Lactic Acid 3.8 H Calcium Phosphorus 5.0 H Magnesium 2.0 Total Bilirubin AST Alkaline Phosphatase Ammonia < 8.7 L C-Reactive Protein Total Protein Albumin Triglycerides 91 Amylase 32 Lipase 70.4 TSH Urine Color Urine Appearance Urine pH Ur Specific [place] Urine Protein Urine Glucose (UA) Urine Ketones Urine Blood Urine Nitrite Ur Leukocyte Esterase Blood Type Antibody Screen 08/06/19 08/06/19 08/06/19 01:35 01:35 01:45 WBC 9.1 RBC 4.23 L Hgb 12.2 L Hct 38.0 MCV 90 MCH 28.8 MCHC 32.1 RDW 18.0 H Plt Count 259 Seg Neutrophils % 90.2 H Carbonic Acid HCO3/H2CO3 Ratio ABG pH ABG pCO2 ABG pO2 ABG HCO3 ABG O2 Saturation ABG Base Excess VBG pH 7.22 L VBG pCO2 41.8 VBG HCO3 16.8 L VBG Base Excess -10.3 FiO2 Sodium Potassium Chloride Carbon Dioxide Anion Gap BUN Creatinine Est GFR ( Amer) Glucose Lactic Acid Calcium Phosphorus Magnesium Total Bilirubin 1.8 H AST 218 H Alkaline Phosphatase 72 Ammonia C-Reactive Protein 19.7 H Total Protein 4.6 L Albumin 2.5 L Triglycerides Amylase < 30 L Lipase 124.7 TSH Urine Color Urine Appearance Urine pH Ur Specific [place] Urine Protein Urine Glucose (UA) Urine Ketones Urine Blood Urine Nitrite Ur Leukocyte Esterase Blood Type Antibody Screen 08/06/19 08/06/19 08/06/19 01:45 01:45 01:45 WBC Cancelled RBC Cancelled Hgb Cancelled Hct Cancelled MCV Cancelled MCH Cancelled MCHC Cancelled RDW Cancelled Plt Count Cancelled Seg Neutrophils % Cancelled Carbonic Acid HCO3/H2CO3 Ratio ABG pH ABG pCO2 ABG pO2 ABG HCO3 ABG O2 Saturation ABG Base Excess VBG pH Cancelled VBG pCO2 Cancelled VBG HCO3 Cancelled VBG Base Excess Cancelled FiO2 Sodium 137.8 Potassium 3.7 Chloride 111 H Carbon Dioxide 15 L D Anion Gap 12 BUN 13 Creatinine 0.91 Est GFR ( Amer) > 60 Glucose 215 H Lactic Acid Calcium 6.2 L* Phosphorus 3.8 Magnesium 1.5 L Total Bilirubin 1.7 H AST 216 H Alkaline Phosphatase 73 Ammonia C-Reactive Protein Total Protein 4.6 L Albumin 2.4 L Triglycerides Amylase Lipase TSH Urine Color Urine Appearance Urine pH Ur Specific [place] Urine Protein Urine Glucose (UA) Urine Ketones Urine Blood Urine Nitrite Ur Leukocyte Esterase Blood Type Antibody Screen 08/06/19 08/06/19 08/06/19 01:45 01:59 07:50 WBC RBC Hgb Hct MCV MCH MCHC RDW Plt Count Seg Neutrophils % Carbonic Acid HCO3/H2CO3 Ratio ABG pH ABG pCO2 ABG pO2 ABG HCO3 ABG O2 Saturation ABG Base Excess VBG pH VBG pCO2 VBG HCO3 VBG Base Excess FiO2 Sodium Potassium Chloride Carbon Dioxide Anion Gap BUN Creatinine Est GFR ( Amer) Glucose Lactic Acid 5.0 H Calcium Phosphorus Magnesium Total Bilirubin AST Alkaline Phosphatase Ammonia < 8.7 L C-Reactive Protein Total Protein Albumin Triglycerides Amylase Lipase TSH Urine Color Urine Appearance Urine pH Ur Specific [place] Urine Protein Urine Glucose (UA) Urine Ketones Urine Blood Urine Nitrite Ur Leukocyte Esterase Blood Type B POSITIVE Antibody Screen NEGATIVE 08/06/19 08/06/19 08/06/19 09:10 09:30 09:30 WBC RBC Hgb Hct MCV MCH MCHC RDW Plt Count Seg Neutrophils % Carbonic Acid 0.80 L 1.25 HCO3/H2CO3 Ratio 11:1 10:1 ABG pH 7.16 L* 7.10 L* ABG pCO2 26.7 L 41.6 ABG pO2 129.3 H 30.3 L* ABG HCO3 9.2 L 12.6 L ABG O2 Saturation 97.8 39.6 L ABG Base Excess -18.0 -16.5 VBG pH VBG pCO2 VBG HCO3 VBG Base Excess FiO2 40% 40% Sodium Potassium Chloride Carbon Dioxide Anion Gap BUN Creatinine Est GFR ( Amer) Glucose Lactic Acid 10.9 H Calcium Phosphorus Magnesium Total Bilirubin AST Alkaline Phosphatase Ammonia C-Reactive Protein Total Protein Albumin Triglycerides Amylase Lipase TSH Urine Color Urine Appearance Urine pH Ur Specific [place] Urine Protein Urine Glucose (UA) Urine Ketones Urine Blood Urine Nitrite Ur Leukocyte Esterase Blood Type Antibody Screen 08/05/19 08/05/19 08/05/19 11:38 11:38 15:00 Creatine Kinase Cancelled CK-MB (CK-2) 2.69 Troponin I 0.030 0.026 NT-Pro-B Natriuret Pep 08/05/19 08/05/19 08/05/19 18:33 18:33 18:33 Creatine Kinase 52 L Cancelled CK-MB (CK-2) 1.69 Troponin I 0.027 NT-Pro-B Natriuret Pep 3620 H 08/05/19 08/05/19 08/06/19 23:13 23:13 01:45 Creatine Kinase 41 L 28 L CK-MB (CK-2) 1.64 Troponin I 0.032 NT-Pro-B Natriuret Pep 08/06/19 01:45 Creatine Kinase CK-MB (CK-2) 1.60 Troponin I 0.037 NT-Pro-B Natriuret Pep Impressions: Chest/Abdomen CTA 08/05/19 14:59 IMPRESSION: Moderate right-sided pleural effusion with right lower lobe atelectasis or pneumonia. Small left pleural effusion. No pulmonary emboli. Reflux into the intrahepatic IVC and hepatic veins suggestive of right-sided heart failure. Abdomen Ultrasound 08/06/19 00:00 IMPRESSION: 1. Contracted gallbladder with a thickened wall as on the correlative CT. The sonographic Bermudez sign is negative and there is no dilatation of the CBD. 2. Ascites and right pleural effusion. 3. Increased echotexture of the hepatic parenchyma indicative of diffuse hepatocellular disease. 4. Limited visualization of the pancreas, hepatic vasculature, and aorta. Abdomen/Pelvis CT 08/06/19 00:00 IMPRESSION: 1. Slight interval increase in the amount of free fluid in the abdomen when compared to the prior study. 2. New changes involving the gallbladder with partial contraction of the gallbladder and increased soft tissue thickening and/or high-density fluid surrounding the gallbladder. 3. New inflammatory changes in the inguinal regions bilaterally with subcutaneous emphysema in the left inguinal region secondary to attempted femoral arterial line placement. 4. Again demonstrated is a small infrarenal abdominal aortic aneurysm measuring 3.4 cm in greatest dimension. Recommend follow-up imaging every three years. 5. Colonic diverticulosis. 6. Small bilateral pleural effusions greater on the right with associated bibasilar compressive atelectasis. These findings were discussed with Dr. White on 08/06/2019 at 2:11 AM central time Status: Image reviewed by me Plan Discharge Plan: Patient has been accepted by Dr. Shirley at [facility] ICU. Dr. Schwab from Interventional cardiology has been contacted. Time Spent: Greater than 30 Minutes
[2019-08-06] MEDS ORDERED: FAMOTIDINE INJ/PF 20 MG/2 ML SDV IV SCH (12:00)
--- NOTE | 2019-08-06 12:14 | RADIOLOGY REPORT (SQ) ---
EXAM DESCRIPTION: CHEST SINGLE VIEW COMPLETED DATE/TIME: 08/06/2019 11:48 am REASON FOR STUDY: ET TUBE PLACEMENT COMPARISON: Earlier the same day. NUMBER OF VIEWS: One view. TECHNIQUE: Single frontal radiographic view of the chest acquired. LIMITATIONS: None. FINDINGS: LUNGS AND PLEURA: Endotracheal tube and NG tube have been added. Tip of the endotracheal tube is at the mica and should be withdrawn approximately 2 cm. NG tube tip overlies the left uppe r quadrant most likely within stomach. There are small effusions. No consolidation. Perihilar kimmie ings remain prominent consistent with mild edema. Right-sided central line remains in place. No pne umothorax. MEDIASTINUM AND HILAR STRUCTURES: No masses. Contour normal. HEART AND VASCULAR STRUCTURES: Stable. BONES: No acute findings. HARDWARE: None in the chest. OTHER: No other significant finding. IMPRESSION: Endotracheal tube is slightly low in position as described. NG tube is in satisfactory position. Right pleural effusion and persistent edema. TECHNICAL DOCUMENTATION: JOB ID: [id number] [employer]- All Rights Reserved Reading location - IP/workstation name: [email or web address]
[2019-08-06] MEDS: GABAPENTIN 100 MG CAPSULE PO SCH (12:16)
[2019-08-06] MEDS ORDERED: MINERAL OIL/PETROLATUM,WHITE OPH OINT 3.5 GM OU SCH (12:30)
[2019-08-06 12:35] VITALS: BP 98/64
[2019-08-06] MEDS ORDERED: MIDAZOLAM 2 MG/2 ML INJ IV ONE (13:00)
[2019-08-06] MEDS ORDERED: SUCCINYLCHOLINE CHLORIDE INJ 200 MG/10 ML VIAL ONE (15:17)
--- NOTE | 2019-08-06 16:14 | XCELERA REPORT ---
[address] [address] Transthoracic Echocardiogram Report Name: BOBBY HAYES Age: 63 yrs Gender: Male : 1955 Patient Status: Inpatient Patient Location: ICU^610^A Study Date: 08/06/2019 10:36 AM Height: 68 in Weight: 177 lb BSA: 1.9 m2 Procedure: A two-dimensional transthoracic echocardiogram with color flow and Doppler was performed. Study Quality: Fair. Reason For Study: atrial fibrillation History: atrial fibrillation. Ordering Physician: JUAN FRANCISCO ROCHA Performed By: Maryuri Howe Interpretation Summary The left ventricle is mildly dilated. There is normal left ventricular wall thickness. LV EF is is less than 10% Left ventricular systolic function is severely reduced. There is severe global hypokinesis of the left ventricle. There is no thrombus. No ASD ,Vsd or pFO seen. The right ventricle is grossly normal size. The right ventricle is not well visualized secondary to technical limitations The right atrium is normal. The left atrium is moderately dilated. High suspicion for a smal mobile vegetation on the anterior mitral valve leaflet . There is no mitral valve stenosis. There is a mild to moderate amount of mitral regurgitation There is no aortic valvular vegetation. There is no aortic valve stenosis No aortic regurgitation is present. There is no tricuspid stenosis. There is a moderate to severe amount of tricuspid regurgitation RVSP is 34 to 39 mm of Hg , with RA mean of 10 to 15. There is mild pulmonary hypertension by echo There is no pulmonic valvular stenosis. There is no pulmonic valvular regurgitation. The aortic root is normal size. There is no pericardial effusion. MMode/2D Measurements & Calculations IVSd: 0.86 cm LVIDd: 5.7 cm FS: 9.7 % Ao root diam: 3.1 cm LVIDs: 5.2 cm EDV(Teich): 161.3 ml Ao root area: 7.6 cm2 LVPWd: 1.0 cm ESV(Teich): 127.7 ml EF(Teich): 20.9 % Doppler Measurements & Calculations Ao V2 max: LV V1 max PG: PA V2 max: TR max barbara: 63.7 cm/sec 0.23 mmHg 33.5 cm/sec 240.6 cm/sec Ao max PG: LV V1 max: PA max PG: TR max P.6 mmHg 1.6 mmHg 24.0 cm/sec 0.45 mmHg Left Ventricle The left ventricle is mildly dilated. There is normal left ventricular wall thickness. LV EF is is less than 10%. Left ventricular systolic function is severely reduced. LV diastolic function could not be adequately assessed due to atrial fibrilation. There is severe global hypokinesis of the left ventricle. There is no thrombus. No ASD ,Vsd or pFO seen. Right Ventricle The right ventricle is grossly normal size. The right ventricle is not well visualized secondary to technical limitations. Atria The right atrium is normal. The left atrium is moderately dilated. Mitral Valve There is no evidence of mitral valve prolapse. High suspicion for a smal mobile vegetation on the anterior mitral valve leaflet . There is no mitral valve stenosis. There is a mild to moderate amount of mitral regurgitation. Aortic Valve There is no aortic valvular vegetation. There is no aortic valve stenosis. No aortic regurgitation is present. Tricuspid Valve There is no tricuspid stenosis. There is a moderate to severe amount of tricuspid regurgitation. RVSP is 34 to 39 mm of Hg , with RA mean of 10 to 15. There is mild pulmonary hypertension by echo. Pulmonic Valve There is no pulmonic valvular stenosis. There is no pulmonic valvular regurgitation. Great Vessels The aortic root is normal size. The inferior vena cava appeared normal and decreased < 50% with respiration (RAP 10-15 mmHg). Effusions There is no pericardial effusion. : JUAN FRANCISCO ROCHA Lakshmi
[2019-08-06] MEDS ORDERED: VANCOMYCIN HCL 1,250 MG in DEXTROSE 5%-WATER 250 ML IV SCH (18:00)
[2019-08-08] MEDS ORDERED: THIAMINE HCL IV SCH (18:00)
[2019-08-08] MEDS ORDERED: FOLIC ACID IV SCH (18:00)
[2019-08-08] MEDS ORDERED: NORMAL SALINE IV SCH (18:00)
== END 2019-08-06 13:09 | disposition short-term general hospital (02) | DRG 871 ==
LOC: ER 11:36 → EH 17:10 → ICU 18:59
PROVIDERS: ADMIT Internal Medicine Critical Care Medicine; ATTEND Internal Medicine Critical Care Medicine
PROC: B32T1ZZ Computerized Tomography (CT Scan) of Left Pulmonary Artery using Low Osmolar Contrast (ICD-10-PCS; 2019-08-05)
PROC: B32S1ZZ Computerized Tomography (CT Scan) of Right Pulmonary Artery using Low Osmolar Contrast (ICD-10-PCS; 2019-08-05)
PROC: B2211ZZ Computerized Tomography (CT Scan) of Multiple Coronary Arteries using Low Osmolar Contrast (ICD-10-PCS; 2019-08-05)
PROC: 5A1935Z Respiratory Ventilation, Less than 24 Consecutive Hours (ICD-10-PCS; principal; 2019-08-06)
PROC: 0BH17EZ Insertion of Endotracheal Airway into Trachea, Via Natural or Artificial Opening (ICD-10-PCS; 2019-08-06)
PROC: 02HV33Z Insertion of Infusion Device into Superior Vena Cava, Percutaneous Approach (ICD-10-PCS; 2019-08-06)
DX: A41.9 Sepsis, unspecified organism (principal); R57.0 Cardiogenic shock; J96.01 Acute respiratory failure with hypoxia; I48.91 Unspecified atrial fibrillation; K43.9 Ventral hernia without obstruction or gangrene; I70.0 Atherosclerosis of aorta; I73.9 Peripheral vascular disease, unspecified; I71.4 Abdominal aortic aneurysm, without rupture; R10.12 Left upper quadrant pain; F10.10 Alcohol abuse, uncomplicated; M54.9 Dorsalgia, unspecified; M79.606 Pain in leg, unspecified; G89.4 Chronic pain syndrome; M19.90 Unspecified osteoarthritis, unspecified site; F32.9 Major depressive disorder, single episode, unspecified; F17.200 Nicotine dependence, unspecified, uncomplicated; F14.90 Cocaine use, unspecified, uncomplicated; F11.90 Opioid use, unspecified, uncomplicated; Z79.82 Long term (current) use of aspirin
CPT/HCPCS: 36415; 51702; 71045; 71275; 74177; 76700; 80053; 80076; 80307; 81001; 82140; 82150; 82550; 82553; 82803; 82962; 83036; 83605; 83690; 83735; 83880; 84100; 84443; 84478; 84484; 85025; 85610; 85652; 85730; 86140; 86850; 86900; 86901; 87040; 87070; 87804; 93005; 93010; 93306; 94002; 94640; 94660; 96365; 96366; 96368; 96375; 96376; 99291; C1751; J0295; J0330; J0456; J0610; J1644; J1720; J2250; J2260; J2543; J2920; J3010; J3370; J3411; J3475; J3490; J7030; J7040; J7050; J7060; J7120; J7620; P9041

== ENCOUNTER 2019-09-07 15:07 | Emergency (ER) | payer MEDICARE ==
[2019-09-07 16:33] LABS: ALBUMIN 3.8 g/dL (3.5-5.0); ALKALINE PHOSPHATASE 100 U/L (38-126); ANION GAP 17 (5-19); ASPARTATE AMINO TRANSFERASE 36 U/L (17-59); BILIRUBIN,DIRECT 0.2 mg/dL (0.0-0.4); BILIRUBIN,TOTAL 0.6 mg/dL (0.2-1.3); BLOOD UREA NITROGEN 14 mg/dL (7-20); CARBON DIOXIDE 18 mmol/L (22-30); CHLORIDE 105 mmol/L (98-107); GLUCOSE 111 mg/dL (75-110); POTASSIUM 4.3 mmol/L (3.6-5.0); TOTAL PROTEIN 6.4 g/dL (6.3-8.2)
[2019-09-07 16:56] LABS: ABSOLUTE LYMPHOCYTES (AUTO) 1.1 10^3/uL (0.5-4.7); ABSOLUTE MONOCYTES (AUTO) 0.2 10^3/uL (0.1-1.4); ABSOLUTE NEUT (AUTO) 3.3 10^3/uL (1.7-8.2); BASOPHILS % (AUTO) 0.8 % (0-2); EOSINOPHILS % (AUTO) 0.3 % (0-6); HEMATOCRIT 38.6 % (37.9-51.0); HEMOGLOBIN 12.6 g/dL (13.5-17.0); LYMPHOCYTES % (AUTO) 22.9 % (13-45); MEAN CORPUSCULAR HEMOGLOBIN 29.1 pg (27.0-33.4); MEAN CORPUSCULAR HGB CONC 32.8 g/dL (32.0-36.0); MEAN CORPUSCULAR VOLUME 89 fl (80-97); MONOCYTES % (AUTO) 5.1 % (3-13); PLATELET COUNT 250 10^3/uL (150-450); RED BLOOD COUNT 4.34 10^6/uL (4.35-5.55); RED CELL DISTRIBUTION WIDTH 17.2 % (11.5-14.0); SEGMENTED NEUTROPHILS % (AUTO) 70.9 % (42-78); TOTAL CELLS COUNTED % (AUTO) 100 %; WHITE BLOOD COUNT 4.6 10^3/uL (4.0-10.5)
--- NOTE | 2019-09-07 18:04 | EKG REPORT ---
SEVERITY:- ABNORMAL ECG - ATRIAL FIBRILLATION, V-RATE [id number] LOW VOLTAGE IN FRONTAL LEADS BORDERLINE T ABNORMALITIES, INFERIOR LEADS : Confirmed by: Harish Acuña MD 07-Sep-2019 18:02:58
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
[2019-09-07 21:25] VITALS: BP 102/78
== END 2019-09-07 21:29 | disposition left against medical advice (07) ==
LOC: ER 15:07
DX: F41.9 Anxiety disorder, unspecified (principal); I48.91 Unspecified atrial fibrillation; R45.851 Suicidal ideations; R00.0 Tachycardia, unspecified; F19.10 Other psychoactive substance abuse, uncomplicated; F17.200 Nicotine dependence, unspecified, uncomplicated; Z79.899 Other long term (current) drug therapy; Z53.20 Procedure and treatment not carried out because of patient's decision for unspecified reasons
CPT/HCPCS: 36415; 80053; 85025; 93005; 93010; 99284

== ENCOUNTER 2019-10-06 20:00 | Emergency (ER) | payer MEDICARE ==
[2019-10-06 20:59] LABS: ABSOLUTE BASOPHILS # (AUTO) 0.1 10^3/uL (0.0-0.2); ABSOLUTE EOSINOPHILS # (AUTO) 0.1 10^3/uL (0.0-0.6); ABSOLUTE LYMPHOCYTES (AUTO) 1.4 10^3/uL (0.5-4.7); ABSOLUTE MONOCYTES (AUTO) 0.5 10^3/uL (0.1-1.4); ABSOLUTE NEUT (AUTO) 3.4 10^3/uL (1.7-8.2); EOSINOPHILS % (AUTO) 1.1 % (0-6); HEMATOCRIT 34.9 % (37.9-51.0); HEMOGLOBIN 11.4 g/dL (13.5-17.0); LYMPHOCYTES % (AUTO) 25.5 % (13-45); MEAN CORPUSCULAR HEMOGLOBIN 29.3 pg (27.0-33.4); MEAN CORPUSCULAR HGB CONC 32.8 g/dL (32.0-36.0); MEAN CORPUSCULAR VOLUME 89 fl (80-97); PLATELET COUNT 317 10^3/uL (150-450); RED BLOOD COUNT 3.91 10^6/uL (4.35-5.55); RED CELL DISTRIBUTION WIDTH 16.3 % (11.5-14.0); SEGMENTED NEUTROPHILS % (AUTO) 63.4 % (42-78); TOTAL CELLS COUNTED % (AUTO) 100 %; WHITE BLOOD COUNT 5.4 10^3/uL (4.0-10.5)
[2019-10-06 21:04] LABS: ALBUMIN 3.1 g/dL (3.5-5.0); ALKALINE PHOSPHATASE 78 U/L (38-126); ANION GAP 7 (5-19); ASPARTATE AMINO TRANSFERASE 26 U/L (17-59); BILIRUBIN,DIRECT 0.3 mg/dL (0.0-0.4); BILIRUBIN,TOTAL 0.6 mg/dL (0.2-1.3); BLOOD UREA NITROGEN 20 mg/dL (7-20); CALCIUM 8.9 mg/dL (8.4-10.2); CARBON DIOXIDE 24 mmol/L (22-30); CHLORIDE 108 mmol/L (98-107); CREATINE KINASE 23 U/L (55-170); GLUCOSE 152 mg/dL (75-110); POTASSIUM 4.5 mmol/L (3.6-5.0); TOTAL PROTEIN 5.9 g/dL (6.3-8.2)
[2019-10-06 21:16] LABS: CREATINE KINASE MB 1.37 ng/mL (<4.55)
[2019-10-06 21:18] LABS: TROPONIN I 0.034 ng/mL
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
--- NOTE | 2019-10-06 21:54 | RADIOLOGY REPORT (SQ) ---
XR CHEST 1 VIEW CLINICAL STATEMENT: sob COMPARISON: 08/06/2019 FINDINGS: Heart is moderately enlarged. There is no focal lung consolidation or pleural effusion. No evidence of pulmonary edema or pneumothorax. IMPRESSION: No acute cardiopulmonary disease.
[2019-10-06] MEDS ORDERED: FUROSEMIDE INJ/PF 40 MG/4 ML SDV IV ONE (22:00)
[2019-10-06] MEDS ORDERED: NITROGLYCERIN 2% OINTMENT 1 GM PACKET TP ONE (22:01)
[2019-10-06 22:12] LABS: INTERNATIONAL RATION (INR) 1.22; PROTHROMBIN TIME 15.5 SEC (11.4-15.4)
[2019-10-06 22:13] LABS: PARTIAL THROMBOPLASTIN TIME 30.1 SEC (23.5-35.8)
--- NOTE | 2019-10-07 00:17 | EKG REPORT ---
SEVERITY:- ABNORMAL ECG - ATRIAL FIBRILLATION, V-RATE 80-126 NONSPECIFIC T ABNORMALITIES, DIFFUSE LEADS : Confirmed by: Ishmael Talbot 07-Oct-2019 00:16:55
[2019-10-07] MEDS ORDERED: ASPIRIN 81 MG TABLET, CHEWABLE PO ONE (00:23)
[2019-10-07] MEDS ORDERED: NORMAL SALINE 250 ML IV ONE (00:24)
[2019-10-07] MEDS ORDERED: NORMAL SALINE 500 ML IV ONE (00:52)
[2019-10-07 00:55] LABS: APPEARANCE,URINE CLEAR; BILIRUBIN,URINE NEGATIVE (NEGATIVE); COLOR,URINE YELLOW; GLUCOSE, URINE NEGATIVE (NEGATIVE); KETONES,URINE NEGATIVE (NEGATIVE); LEUKOCYTE ESTERASE,URINE NEGATIVE (NEGATIVE); NITRITE,URINE NEGATIVE (NEGATIVE); PROTEIN,URINE NEGATIVE (NEGATIVE); UROBILINOGEN,URINE NEGATIVE mg/dL (<2.0)
--- NOTE | 2019-10-07 02:42 | RADIOLOGY REPORT (SQ) ---
EXAM DESCRIPTION: CT ABDOMEN PELVIS WITH IV CONTRAST, CT CHEST ANGIOGRAPHY WITHOUT THEN WITH IV CONTRAST COMPLETED DATE/TME: 10/07/2019 00:00 (accession [id number]), 10/07/2019 00:49 (accession [id number]) CLINICAL HISTORY: 63 years, Male, HERNIA ISSUES COMPARISON: CT abdomen/pelvis 08/06/2019 TECHNIQUE: 732 Images stored on PACS. All CT scanners at this facility use dose modulation, iterative reconstruction, and/or weight based dosing when appropriate to reduce radiation dose to as low as reasonably achievable (ALARA). Axial CTA images of the chest with coronal and sagittal MIPS [facility]: Dose Right [facility]: CareDose [facility]: Dose Right [facility]: Teradose 4D [facility]: Smart PersistIQ LIMITATIONS: None. FINDINGS: CTA chest: The mediastinal vasculature enhances normally. No filling defect to suggest pulmonary most. Little contrast in the thoracic aorta. No gross evidence for aneurysm or dissection. Nonenlarged and mildly enlarged mediastinal nodes, the largest in the right paratracheal region measuring 2 x 2 centimeters. Small to moderate right and small left pleural effusions. Osseous structures of the thorax are grossly intact. No pneumothorax. The visualized airways are patent. Consolidative change in the right lung base posteriorly. CT abdomen/pelvis: Post surgical changes of the lumbar spine. Osseous structures are otherwise grossly intact. Small hiatal hernia. The liver, spleen, adrenal glands, pancreas, kidneys are unremarkable. Subjective gallbladder wall thickening and pericholecystic fluid/inflammation. Correlate for the possibility of cholecystitis. No gross evidence for bowel obstruction. A knuckle of bowel extends through a small anterior abdominal wall defect to the left of midline. Large amount stool in the colon. Normal appendix. Sigmoid diverticulosis. Some equivocal adjacent inflammation reflecting mild diverticulitis. Wall thickening of the sigmoid colon. No abscess, free air, or free fluid. Stable mild infrarenal abdominal aortic aneurysm with maximal diameter 3.3 x 3.4 cm. IMPRESSION: No acute intrathoracic process. Small to moderate right and small left pleural effusions. Minor consolidative change right lung base. Findings suggestive of mild sigmoid diverticulitis. Subjective gallbladder wall thickening with minor adjacent inflammation and pericholecystic fluid. Correlate for the possibility of acute cholecystitis. Small hiatal hernia. Stable infrarenal abdominal aortic aneurysm. Recommend follow-up as per below. For management of fusiform aneurysmal abdominal aortas: <2.6 cm aorta, no follow-up is recommended. 2.6-2.9 cm aorta, recommend follow-up every 5 years for aortas meeting the criteria for AAA (>1.5 x proximal normal segment; no f/u if < 1.5 x proximal normal segment; no f/u for aortas < 2.6 cm). 3.0-3.4 cm AAA, recommend follow-up every 3 years. 3.5-3.9 cm AAA, recommend follow-up every 2 years. 4.0-4.4 cm AAA, recommend follow-up every 12 months and recommend vascular consultation. 4.5-5.4 cm AAA, recommend follow-up every 6 months and recommend vascular consultation. >5.5 cm AAA, recommend referral to vascular specialist. For management of saccular abdominal aortic aneurysms of any size, recommend vascular consultation. Note: for AAA enlargement of >0.5 cm in 6 months or >1 cm in 1 year, recommend vascular consultation. References: J Am Rick Radiol 2013; 10(10):789-794; J Vasc Surg. 2018; 67:2-77 TECHNICAL DOCUMENTATION: Quality ID # 436: Final reports with documentation of one or more dose reduction techniques (e.g., Automated exposure control, adjustment of the mA and/or kV according to patient size, use of iterative reconstruction technique) copyright 2011 [employer]- All Rights Reserved
[2019-10-07] MEDS ORDERED: ACETAMINOPHEN WITH CODEINE #3 TABLET PO ONE (03:45)
[2019-10-07] MEDS ORDERED: CIPROFLOXACIN 400 MG/D5W RTU 400 MG/200 ML RTUPB IV ONE (06:23)
[2019-10-07] MEDS ORDERED: GABAPENTIN 300 MG CAPSULE PO ONE (06:44)
[2019-10-07 07:33] VITALS: BP 81/60
--- NOTE | 2019-10-07 08:06 | EKG REPORT ---
SEVERITY:- ABNORMAL ECG - ATRIAL FIBRILLATION, V-RATE 64-122 PREMATURE VENTRICULAR COMPLEXES, LOW VOLTAGE IN FRONTAL LEADS NONSPECIFIC T ABNORMALITIES, DIFFUSE LEADS : Confirmed by: Ishmael Talbot 07-Oct-2019 08:05:05
== END 2019-10-07 07:25 | disposition left against medical advice (07) ==
LOC: ER 20:00
DX: R06.02 Shortness of breath (principal); J98.01 Acute bronchospasm; I48.20 Chronic atrial fibrillation, unspecified; I95.9 Hypotension, unspecified; G89.28 Other chronic postprocedural pain; F17.200 Nicotine dependence, unspecified, uncomplicated
CPT/HCPCS: 93005 ×2; 99285; 96361; 96374; 36415; 87040; 82553; 82550; 85025; 85610; 85730; 80053; 81001; 84484; 85379; 83880; 71045; 71275; 74177; 93010 ×2; A9270 ×4; J1940; J7050; J7040